=== PATIENT | female | born 1950 | race Two or more races ===

== ENCOUNTER 2024-05-29 07:56 | Outpatient (RCR) | payer MEDICARE, SELFPAY ==
[2024-05-07 16:20] LABS: Basophils % (Auto) 0 % (0-2.5); Eosinophils # (Auto) 0.1 Thou/mm3 (0.0-0.5); Eosinophils % (Auto) 2 % (0-10); Hematocrit 26.7 % (36.0-46.0); Immature Granulocytes % (Auto) 5 % (0-0); Immature Granulocytes Auto 0.27 Thou/mm3 (0.00-0.00); Lymphocytes # (Auto) 0.6 Thou/mm3 (1.0-4.8); Lymphocytes % (Auto) 11 % (10-50); Mean Corpuscular HGB Conc 32.6 g/dl (31.0-37.0); Mean Corpuscular Hemoglobin 28.4 pg (25.0-35.0); Mean Corpuscular Volume 87 fL (80-100); Monocytes # (Auto) 0.9 Thou/mm3 (0.0-0.8); Monocytes % (Auto) 17 % (0-12); Neutrophils # (Auto) 3.2 Thou/mm3 (1.8-7.7); Neutrophils % (Auto) 64 % (37-80); Nucleated Red Blood Cell % 0 /100 WBC (0); Platelet Count 99 Thou/mm3 (140-440); RDW Standard Deviation 49.1 fL (36.4-46.3); Red Blood Count 3.06 Miln/mm3 (4.00-5.20); White Blood Count 5.1 Thou/mm3 (3.6-11.0)
[2024-05-07 16:23] LABS: Hemoglobin 8.7 g/dL (12.0-16.0)
[2024-05-07 16:37] LABS: Alanine Aminotransferase 12 U/L (10-49); Albumin/Globulin Ratio 2.4 (1.2-2.2); Alkaline Phosphatase 57 U/L (46-116); Anion Gap 7 (7-16); Aspartate Amino Transferase 22 U/L (0-34); BUN/Creatinine Ratio 32 Ratio (12-20); Bilirubin,Total 0.4 mg/dL (0.3-1.2); Blood Urea Nitrogen 16 mg/dL (9-23); Calcium 9.2 mg/dL (8.3-10.6); Calcium (Corrected) 9.2 mg/dL (8.5-10.1); Carbon Dioxide 26.1 mMol/L (20.0-31.0); Chloride 102 mMol/L (98-107); Creatinine (Component) 0.5 mg/dL (0.6-1.3); Globulin 1.7 gm/dL (2.3-3.5); Glucose 155 mg/dL (74-106); Osmolality,Calculated 274 (275-295); Potassium 3.6 mMol/L (3.4-5.1); Sodium 135 mMol/L (136-145); Total Protein 5.7 gm/dL (5.7-8.2); eGFR > 60 See Note
[2024-05-14 22:04] LABS: Abnormal protein band 1 0.2 g/dL (NONE DETECTED); Albumin 3.4 g/dL (3.8-4.8); Alpha-1-Globulin 0.3 g/dL (0.2-0.3); Alpha-2-Globulin 0.7 g/dL (0.5-0.9); Beta-1-Globulin 0.4 g/dL (0.4-0.6); Beta-2-globulin 0.1 g/dL (0.2-0.5); Gamma Globulin 0.4 g/dL (0.8-1.7)
[2024-05-15 06:31] LABS: Protein, total, serum 5.3 g/dL (6.1-8.1)
[2024-05-15 08:29] LABS: Basophils % (Auto) 0 % (0-2.5); Eosinophils % (Auto) 1 % (0-10); Hematocrit 30.8 % (36.0-46.0); Hemoglobin 10.3 g/dL (12.0-16.0); Immature Granulocytes % (Auto) 2 % (0-0); Immature Granulocytes Auto 0.16 Thou/mm3 (0.00-0.00); Lymphocytes % (Auto) 16 % (10-50); Mean Corpuscular HGB Conc 33.4 g/dl (31.0-37.0); Mean Corpuscular Hemoglobin 28.5 pg (25.0-35.0); Mean Corpuscular Volume 85 fL (80-100); Monocytes # (Auto) 1.2 Thou/mm3 (0.0-0.8); Monocytes % (Auto) 18 % (0-12); Neutrophils # (Auto) 4.2 Thou/mm3 (1.8-7.7); Neutrophils % (Auto) 64 % (37-80); Nucleated Red Blood Cell % 0 /100 WBC (0); Platelet Count 96 Thou/mm3 (140-440); RDW Standard Deviation 47.5 fL (36.4-46.3); Red Blood Count 3.62 Miln/mm3 (4.00-5.20); White Blood Count 6.6 Thou/mm3 (3.6-11.0)
[2024-05-15 09:15] LABS: Alanine Aminotransferase 10 U/L (10-49); Albumin, Serum 4.3 gm/dL (3.4-4.8); Albumin/Globulin Ratio 2.2 (1.2-2.2); Alkaline Phosphatase 70 U/L (46-116); Anion Gap 5 (7-16); Aspartate Amino Transferase 22 U/L (0-34); BUN/Creatinine Ratio 36 Ratio (12-20); Bilirubin,Total 0.5 mg/dL (0.3-1.2); Blood Urea Nitrogen 18 mg/dL (9-23); Calcium 9.2 mg/dL (8.3-10.6); Calcium (Corrected) 9.2 mg/dL (8.5-10.1); Carbon Dioxide 28.2 mMol/L (20.0-31.0); Chloride 101 mMol/L (98-107); Creatinine (Component) 0.5 mg/dL (0.6-1.3); Glucose 100 mg/dL (74-106); Osmolality,Calculated 270 (275-295); Potassium 3.6 mMol/L (3.4-5.1); Sodium 134 mMol/L (136-145); Total Protein 6.3 gm/dL (5.7-8.2); eGFR > 60 See Note
[2024-05-21 16:12] LABS: Basophils % (Auto) 0 % (0-2.5); Eosinophils # (Auto) 0.1 Thou/mm3 (0.0-0.5); Eosinophils % (Auto) 1 % (0-10); Hemoglobin 8.9 g/dL (12.0-16.0); Immature Granulocytes % (Auto) 2 % (0-0); Immature Granulocytes Auto 0.12 Thou/mm3 (0.00-0.00); Mean Corpuscular Volume 86 fL (80-100); Nucleated Red Blood Cell % 0 /100 WBC (0)
[2024-05-21 16:14] LABS: Hematocrit 27.3 % (36.0-46.0); Lymphocytes # (Auto) 0.5 Thou/mm3 (1.0-4.8); Lymphocytes % (Auto) 9 % (10-50); Mean Corpuscular HGB Conc 32.6 g/dl (31.0-37.0); Mean Corpuscular Hemoglobin 27.9 pg (25.0-35.0); Monocytes # (Auto) 0.8 Thou/mm3 (0.0-0.8); Monocytes % (Auto) 15 % (0-12); Neutrophils # (Auto) 4.1 Thou/mm3 (1.8-7.7); Neutrophils % (Auto) 73 % (37-80); Red Blood Count 3.19 Miln/mm3 (4.00-5.20); White Blood Count 5.6 Thou/mm3 (3.6-11.0)
[2024-05-21 16:33] LABS: Alanine Aminotransferase 14 U/L (10-49); Albumin, Serum 4.1 gm/dL (3.4-4.8); Albumin/Globulin Ratio 2.4 (1.2-2.2); Alkaline Phosphatase 63 U/L (46-116); Anion Gap 6 (7-16); Aspartate Amino Transferase 23 U/L (0-34); BUN/Creatinine Ratio 42 Ratio (12-20); Bilirubin,Total 0.4 mg/dL (0.3-1.2); Blood Urea Nitrogen 21 mg/dL (9-23); Carbon Dioxide 26.9 mMol/L (20.0-31.0); Chloride 104 mMol/L (98-107); Creatinine (Component) 0.5 mg/dL (0.6-1.3); Globulin 1.7 gm/dL (2.3-3.5); Glucose 135 mg/dL (74-106); Osmolality,Calculated 278 (275-295); Potassium 3.2 mMol/L (3.4-5.1); Sodium 137 mMol/L (136-145); Total Protein 5.8 gm/dL (5.7-8.2); eGFR > 60 See Note
[2024-05-21 18:00] LABS: Platelet Count 66 Thou/mm3 (140-440); Slide Review Platelets confirmed
[2024-05-22 10:50] LABS: Basophils % (Auto) 0 % (0-2.5); Eosinophils # (Auto) 0.1 Thou/mm3 (0.0-0.5); Eosinophils % (Auto) 2 % (0-10); Hematocrit 25.6 % (36.0-46.0); Immature Granulocytes % (Auto) 3 % (0-0); Immature Granulocytes Auto 0.13 Thou/mm3 (0.00-0.00); Lymphocytes # (Auto) 0.4 Thou/mm3 (1.0-4.8); Lymphocytes % (Auto) 11 % (10-50); Mean Corpuscular HGB Conc 33.2 g/dl (31.0-37.0); Mean Corpuscular Hemoglobin 28.4 pg (25.0-35.0); Mean Corpuscular Volume 86 fL (80-100); Monocytes # (Auto) 0.8 Thou/mm3 (0.0-0.8); Monocytes % (Auto) 21 % (0-12); Neutrophils # (Auto) 2.5 Thou/mm3 (1.8-7.7); Neutrophils % (Auto) 64 % (37-80); Nucleated Red Blood Cell % 0 /100 WBC (0); Platelet Count 66 Thou/mm3 (140-440); RDW Standard Deviation 48.3 fL (36.4-46.3); Red Blood Count 2.99 Miln/mm3 (4.00-5.20); White Blood Count 3.9 Thou/mm3 (3.6-11.0)
[2024-05-22 11:08] LABS: Alanine Aminotransferase 16 U/L (10-49); Albumin, Serum 3.9 gm/dL (3.4-4.8); Albumin/Globulin Ratio 2.3 (1.2-2.2); Alkaline Phosphatase 62 U/L (46-116); Anion Gap 6 (7-16); Aspartate Amino Transferase 24 U/L (0-34); BUN/Creatinine Ratio 40 Ratio (12-20); Bilirubin,Total 0.3 mg/dL (0.3-1.2); Blood Urea Nitrogen 20 mg/dL (9-23); Calcium 8.7 mg/dL (8.3-10.6); Calcium (Corrected) 8.8 mg/dL (8.5-10.1); Carbon Dioxide 26.3 mMol/L (20.0-31.0); Chloride 105 mMol/L (98-107); Creatinine (Component) 0.5 mg/dL (0.6-1.3); Globulin 1.7 gm/dL (2.3-3.5); Glucose 115 mg/dL (74-106); Osmolality,Calculated 277 (275-295); Potassium 3.3 mMol/L (3.4-5.1); Sodium 137 mMol/L (136-145); Total Protein 5.6 gm/dL (5.7-8.2); eGFR > 60 See Note
[2024-05-22 11:35] LABS: Hemoglobin 8.5 g/dL (12.0-16.0)
[2024-05-22 12:43] LABS: Slide Review Platelets confirmed
[2024-05-23 03:06] LABS: Immunoglobulin G 479 mg/dL (600-1540); Kappa Light Chain, Free 691.2 mg/L (3.3-19.4); Lambda Light Chain, Free 8.2 mg/L (5.7-26.3)
[2024-05-23 06:44] LABS: Beta 2 Microglobulin 3.69 mg/L (< OR = 2.51); Immunoglobulin A 13 mg/dL (70-320); Immunoglobulin M 21 mg/dL (50-300); Kappa/Lambda, Free Ratio 84.29 (0.26-1.65)
[2024-05-28 15:09] LABS: Basophils % (Auto) 0 % (0-2.5); Eosinophils % (Auto) 1 % (0-10); Hematocrit 27.9 % (36.0-46.0); Hemoglobin 9.3 g/dL (12.0-16.0); Immature Granulocytes % (Auto) 2 % (0-0); Lymphocytes # (Auto) 0.7 Thou/mm3 (1.0-4.8); Lymphocytes % (Auto) 12 % (10-50); Mean Corpuscular HGB Conc 33.3 g/dl (31.0-37.0); Mean Corpuscular Hemoglobin 27.8 pg (25.0-35.0); Mean Corpuscular Volume 84 fL (80-100); Monocytes % (Auto) 19 % (0-12); Neutrophils # (Auto) 3.6 Thou/mm3 (1.8-7.7); Neutrophils % (Auto) 66 % (37-80); Nucleated Red Blood Cell % 0 /100 WBC (0); Platelet Count 97 Thou/mm3 (140-440); RDW Standard Deviation 46.2 fL (36.4-46.3); Red Blood Count 3.34 Miln/mm3 (4.00-5.20); White Blood Count 5.4 Thou/mm3 (3.6-11.0)
[2024-05-28 15:10] LABS: Alanine Aminotransferase 12 U/L (10-49); Albumin, Serum 4.3 gm/dL (3.4-4.8); Albumin/Globulin Ratio 2.3 (1.2-2.2); Alkaline Phosphatase 57 U/L (46-116); Anion Gap 6 (7-16); Aspartate Amino Transferase 23 U/L (0-34); BUN/Creatinine Ratio 33 Ratio (12-20); Bilirubin,Total 0.5 mg/dL (0.3-1.2); Blood Urea Nitrogen 20 mg/dL (9-23); Calcium 9.1 mg/dL (8.3-10.6); Calcium (Corrected) 9.1 mg/dL (8.5-10.1); Carbon Dioxide 25.7 mMol/L (20.0-31.0); Chloride 103 mMol/L (98-107); Creatinine (Component) 0.6 mg/dL (0.6-1.3); Globulin 1.9 gm/dL (2.3-3.5); Glucose 92 mg/dL (74-106); Osmolality,Calculated 272 (275-295); Potassium 3.6 mMol/L (3.4-5.1); Sodium 135 mMol/L (136-145); Total Protein 6.2 gm/dL (5.7-8.2); eGFR > 60 See Note
[2024-05-29 17:38] LABS: RA Screen Positive (Negative)
[2024-05-29 17:39] LABS: Rheumatoid Factor Titer 1:16
== END 2024-06-01 23:59 | disposition home or self-care (01) ==
LOC: SCTC 07:56
PROVIDERS: Referring Provider Internal Medicine Hematology & Oncology; Visit Provider Internal Medicine Hematology & Oncology
DX: Z51.11 Encounter for antineoplastic chemotherapy (principal); C90.00 Multiple myeloma not having achieved remission
CPT/HCPCS: 36591; 80053; 82232; 82784; 83521; 84155; 84165; 85025; 86334; 86430; 86431; 96367; 96401; 96413; 99212; A4216; J1100; J1453; J1642; J2405; J3490; J7040; J9041; J9075; G0463

== ENCOUNTER → 2024-06-05 | Outpatient (CLI) | payer MEDICARE, MEDICAID, SELFPAY ==
--- NOTE | 2024-06-05 13:36 | XR_ITS ---
Examination: Hand, left 3 views Technique: Hand AP, oblique, lateral 3 views Date and time of exam: June 05, 2024 1340 hours INDICATIONS: Swelling paresthesias numbness in the first second third and fourth digits beginning 2 weeks ago FINDINGS: Severe osteopenia Advanced osteoarthritis first carpometacarpal joint No cortical bone destruction No fracture Calcification dorsal to the distal aspect proximal phalanx third digit Significant osteoarthritis distal interphalangeal joints second through fifth digits No erosive arthritis IMPRESSION: Osteoarthritis as above
== END | disposition home or self-care (01) ==
PROVIDERS: PCP Internal Medicine; Referring Provider Internal Medicine Hematology & Oncology; Visit Provider Internal Medicine Hematology & Oncology
DX: M19.042 Primary osteoarthritis, left hand (principal); C90.00 Multiple myeloma not having achieved remission
CPT/HCPCS: 73130

== ENCOUNTER 2024-06-19 09:40 | Outpatient (RCR) | payer MEDICARE, SELFPAY ==
[2024-06-04 15:45] LABS: Basophils % (Auto) 0 % (0-2.5); Eosinophils % (Auto) 0 % (0-10); Hematocrit 26.4 % (36.0-46.0); Immature Granulocytes % (Auto) 4 % (0-0); Immature Granulocytes Auto 0.28 Thou/mm3 (0.00-0.00); Lymphocytes # (Auto) 0.5 Thou/mm3 (1.0-4.8); Lymphocytes % (Auto) 7 % (10-50); Mean Corpuscular HGB Conc 31.4 g/dl (31.0-37.0); Mean Corpuscular Hemoglobin 27.5 pg (25.0-35.0); Mean Corpuscular Volume 87 fL (80-100); Monocytes # (Auto) 0.9 Thou/mm3 (0.0-0.8); Monocytes % (Auto) 13 % (0-12); Neutrophils # (Auto) 5.4 Thou/mm3 (1.8-7.7); Neutrophils % (Auto) 76 % (37-80); Nucleated Red Blood Cell % 0 /100 WBC (0); Platelet Count 133 Thou/mm3 (140-440); RDW Standard Deviation 49.4 fL (36.4-46.3); Red Blood Count 3.02 Miln/mm3 (4.00-5.20); White Blood Count 7.1 Thou/mm3 (3.6-11.0)
[2024-06-04 15:56] LABS: Hemoglobin 8.3 g/dL (12.0-16.0)
[2024-06-04 17:47] LABS: Alanine Aminotransferase 14 U/L (10-49); Albumin, Serum 3.9 gm/dL (3.4-4.8); Albumin/Globulin Ratio 2.6 (1.2-2.2); Alkaline Phosphatase 57 U/L (46-116); Anion Gap 9 (7-16); Aspartate Amino Transferase 24 U/L (0-34); BUN/Creatinine Ratio 40 Ratio (12-20); Bilirubin,Total 0.4 mg/dL (0.3-1.2); Blood Urea Nitrogen 20 mg/dL (9-23); Calcium 8.7 mg/dL (8.3-10.6); Calcium (Corrected) 8.8 mg/dL (8.5-10.1); Carbon Dioxide 26.2 mMol/L (20.0-31.0); Chloride 105 mMol/L (98-107); Creatinine (Component) 0.5 mg/dL (0.6-1.3); Globulin 1.5 gm/dL (2.3-3.5); Glucose 188 mg/dL (74-106); Osmolality,Calculated 287 (275-295); Potassium 3.5 mMol/L (3.4-5.1); Sodium 140 mMol/L (136-145); Total Protein 5.4 gm/dL (5.7-8.2); eGFR > 60 See Note
[2024-06-10 19:47] LABS: Abnormal protein band 1 0.3 g/dL (NONE DETECTED); Albumin 3.5 g/dL (3.8-4.8); Alpha-1-Globulin 0.3 g/dL (0.2-0.3); Alpha-2-Globulin 0.7 g/dL (0.5-0.9); Beta-1-Globulin 0.4 g/dL (0.4-0.6); Beta-2-globulin 0.1 g/dL (0.2-0.5); Gamma Globulin 0.5 g/dL (0.8-1.7)
[2024-06-11 06:24] LABS: Protein, total, serum 5.5 g/dL (6.1-8.1)
[2024-06-11 15:59] LABS: Basophils % (Auto) 0 % (0-2.5); Eosinophils # (Auto) 0.2 Thou/mm3 (0.0-0.5); Eosinophils % (Auto) 2 % (0-10); Hemoglobin 8.9 g/dL (12.0-16.0); Immature Granulocytes % (Auto) 4 % (0-0); Immature Granulocytes Auto 0.27 Thou/mm3 (0.00-0.00); Lymphocytes # (Auto) 0.9 Thou/mm3 (1.0-4.8); Lymphocytes % (Auto) 13 % (10-50); Mean Corpuscular HGB Conc 31.8 g/dl (31.0-37.0); Mean Corpuscular Hemoglobin 27.1 pg (25.0-35.0); Mean Corpuscular Volume 85 fL (80-100); Monocytes # (Auto) 1.3 Thou/mm3 (0.0-0.8); Monocytes % (Auto) 19 % (0-12); Neutrophils # (Auto) 4.3 Thou/mm3 (1.8-7.7); Neutrophils % (Auto) 62 % (37-80); Nucleated Red Blood Cell % 0 /100 WBC (0); Platelet Count 108 Thou/mm3 (140-440); RDW Standard Deviation 47.3 fL (36.4-46.3); Red Blood Count 3.29 Miln/mm3 (4.00-5.20)
[2024-06-11 16:13] LABS: Alanine Aminotransferase 12 U/L (10-49); Albumin, Serum 4.4 gm/dL (3.4-4.8); Albumin/Globulin Ratio 2.4 (1.2-2.2); Alkaline Phosphatase 62 U/L (46-116); Anion Gap 7 (7-16); Aspartate Amino Transferase 23 U/L (0-34); BUN/Creatinine Ratio 42 Ratio (12-20); Bilirubin,Total 0.4 mg/dL (0.3-1.2); Blood Urea Nitrogen 21 mg/dL (9-23); Carbon Dioxide 26.4 mMol/L (20.0-31.0); Chloride 103 mMol/L (98-107); Creatinine (Component) 0.5 mg/dL (0.6-1.3); Globulin 1.8 gm/dL (2.3-3.5); Glucose 119 mg/dL (74-106); Osmolality,Calculated 275 (275-295); Potassium 3.6 mMol/L (3.4-5.1); Sodium 136 mMol/L (136-145); Total Protein 6.2 gm/dL (5.7-8.2); eGFR > 60 See Note
[2024-06-12 22:06] LABS: Immunoglobulin G 582 mg/dL (600-1540); Kappa Light Chain, Free 575.4 mg/L (3.3-19.4); Lambda Light Chain, Free 11.3 mg/L (5.7-26.3)
[2024-06-13 06:55] LABS: Beta 2 Microglobulin 3.06 mg/L (< OR = 2.51); Immunoglobulin A 17 mg/dL (70-320); Immunoglobulin M 21 mg/dL (50-300); Kappa/Lambda, Free Ratio 50.92 (0.26-1.65)
[2024-06-18 16:21] LABS: Basophils % (Auto) 0 % (0-2.5); Eosinophils # (Auto) 0.1 Thou/mm3 (0.0-0.5); Eosinophils % (Auto) 2 % (0-10); Hematocrit 27.6 % (36.0-46.0); Immature Granulocytes % (Auto) 4 % (0-0); Immature Granulocytes Auto 0.17 Thou/mm3 (0.00-0.00); Lymphocytes # (Auto) 0.5 Thou/mm3 (1.0-4.8); Lymphocytes % (Auto) 11 % (10-50); Mean Corpuscular HGB Conc 31.5 g/dl (31.0-37.0); Mean Corpuscular Hemoglobin 26.5 pg (25.0-35.0); Mean Corpuscular Volume 84 fL (80-100); Monocytes % (Auto) 21 % (0-12); Neutrophils # (Auto) 2.9 Thou/mm3 (1.8-7.7); Neutrophils % (Auto) 62 % (37-80); Nucleated Red Blood Cell % 0 /100 WBC (0); Platelet Count 76 Thou/mm3 (140-440); RDW Standard Deviation 46.5 fL (36.4-46.3); Red Blood Count 3.28 Miln/mm3 (4.00-5.20); White Blood Count 4.7 Thou/mm3 (3.6-11.0)
[2024-06-18 16:45] LABS: Alanine Aminotransferase 14 U/L (10-49); Albumin, Serum 4.2 gm/dL (3.4-4.8); Albumin/Globulin Ratio 2.3 (1.2-2.2); Alkaline Phosphatase 64 U/L (46-116); Anion Gap 8 (7-16); Aspartate Amino Transferase 25 U/L (0-34); BUN/Creatinine Ratio 44 Ratio (12-20); Bilirubin,Total 0.4 mg/dL (0.3-1.2); Blood Urea Nitrogen 22 mg/dL (9-23); Calcium 9.3 mg/dL (8.3-10.6); Calcium (Corrected) 9.3 mg/dL (8.5-10.1); Carbon Dioxide 27.4 mMol/L (20.0-31.0); Chloride 103 mMol/L (98-107); Creatinine (Component) 0.5 mg/dL (0.6-1.3); Globulin 1.8 gm/dL (2.3-3.5); Glucose 111 mg/dL (74-106); Osmolality,Calculated 279 (275-295); Potassium 3.2 mMol/L (3.4-5.1); Sodium 138 mMol/L (136-145); eGFR > 60 See Note
[2024-06-18 16:57] LABS: Hemoglobin 8.7 g/dL (12.0-16.0)
[2024-06-18 17:11] LABS: Slide Review Platelets confirmed
== END 2024-07-02 23:59 | disposition home or self-care (01) ==
LOC: SCTC 09:40
PROVIDERS: Referring Provider Internal Medicine Hematology & Oncology; Visit Provider Internal Medicine Hematology & Oncology
DX: Z51.11 Encounter for antineoplastic chemotherapy (principal); C90.00 Multiple myeloma not having achieved remission
CPT/HCPCS: 36591; 80053; 82232; 82784; 83521; 84155; 84165; 85025; 86334; 96365; 96367; 96401; A4216; J1100; J1642; J3490; J7040; J9041

== ENCOUNTER → 2024-07-04 | Outpatient (CLI) | payer MEDICARE, SELFPAY | END | disposition home or self-care (01) | PROVIDERS: PCP Internal Medicine Hematology & Oncology; Referring Provider Internal Medicine Hematology & Oncology; Visit Provider Internal Medicine Hematology & Oncology | DX: Z53.8 Procedure and treatment not carried out for other reasons (principal) ==

== ENCOUNTER 2024-07-09 07:28 | Outpatient (CLI) | payer MEDICARE, SELFPAY ==
[2024-07-04 15:41] VITALS: BMI 21.8
[2024-07-09] VITALS (10 sets, daily range): BP systolic 177–207; BP diastolic 70–100; PULSE 47–70; RESP 12–20; TEMP 36.7–37; O2SAT 100
--- NOTE | 2024-07-09 08:30 | XR_ITS ---
Examination: CT-guided percutaneous bone marrow aspiration right posterior superior iliac crest CT-guided percutaneous bone biopsy deep right posterior superior iliac crest INDICATIONS: Multiple myeloma diagnosis Date and time of procedure: July 09, 2024 0914 hours Informed consent provided. A timeout was completed verifying correct patient, procedure, site and positioning. Technique: Axial 3 mm sections were obtained for localization of the right posterior superior iliac crest Appropriate area is marked. The patient's site was prepped and draped in sterile fashion Maximal sterile barrier technique utilized, including hand hygiene Local anesthesia was obtained with 1% lidocaine. Low dose protocols were performed. One or more of the following dose reduction techniques were used; automated exposure control, adjustment of the mA and/or KV according to patient size, use of iterative reconstruction technique. Utilizing CT fluoroscopic guidance 14-gauge bone biopsy needle placed in the right posterior superior iliac crest 5 cc marrow aspirate and 5 cc bone core obtained specimens appear adequate Patient appears in stable condition during this procedure. At completion of the procedure, the patient is in satisfactory condition. Estimated blood loss 2 cc Complete pathology report to follow. Impression: Successful CT-guided percutaneous bone marrow aspiration right posterior superior iliac crest Successful CT-guided cutaneous bone biopsy deep right posterior superior iliac crest
[2024-07-09] MEDS: fentaNYL CIT INJ 50 mCg/ML AMP 2ML IVP (09:52)
[2024-07-09 10:20] LABS: Flow Cytometry* See Sep Rpt
--- NOTE | 2024-07-09 11:07 | PC.NURSE ---
Notified Dr Neil of patients blood pressure continuing to be high even after taking her home blood pressure pill on arrival. Notified Dr of arrival BP and current BP. Per send patient to the emergency department. Notified Cherie somers/care provider and patient of doctors order. Per Cherie Care Provider patients Blood pressure has been this high and does not plan to take her to the emergency but will call the doctor to get an appointment as soon as possible. Notified Cherie that its not safe to have Blood pressure that high and repeated Doctors request.
== END 2024-07-09 11:35 | disposition home or self-care (01) ==
PROVIDERS: PCP Internal Medicine Hematology & Oncology; Referring Provider Internal Medicine Hematology & Oncology; Visit Provider Internal Medicine Hematology & Oncology
DX: C90.00 Multiple myeloma not having achieved remission (principal); Z01.812 Encounter for preprocedural laboratory examination
CPT/HCPCS: 38221; 77012; 85025; 85610; 85730; J3010

== ENCOUNTER 2024-07-31 14:31 | Outpatient (RCR) | payer MEDICARE, SELFPAY ==
[2024-07-04 08:32] LABS: Basophils % (Auto) 1 % (0-2.5); Eosinophils # (Auto) 0.1 Thou/mm3 (0.0-0.5); Eosinophils % (Auto) 2 % (0-10); Hematocrit 25.3 % (36.0-46.0); Immature Granulocytes % (Auto) 2 % (0-0); Immature Granulocytes Auto 0.07 Thou/mm3 (0.00-0.00); Lymphocytes # (Auto) 0.4 Thou/mm3 (1.0-4.8); Lymphocytes % (Auto) 10 % (10-50); Mean Corpuscular HGB Conc 31.2 g/dl (31.0-37.0); Mean Corpuscular Volume 83 fL (80-100); Monocytes # (Auto) 0.8 Thou/mm3 (0.0-0.8); Monocytes % (Auto) 19 % (0-12); Neutrophils # (Auto) 2.9 Thou/mm3 (1.8-7.7); Neutrophils % (Auto) 67 % (37-80); Nucleated Red Blood Cell % 0 /100 WBC (0); Platelet Count 127 Thou/mm3 (140-440); RDW Standard Deviation 47.8 fL (36.4-46.3); Red Blood Count 3.04 Miln/mm3 (4.00-5.20); White Blood Count 4.3 Thou/mm3 (3.6-11.0)
[2024-07-04 08:45] LABS: Hemoglobin 7.9 g/dL (12.0-16.0)
[2024-07-04 08:53] LABS: Alanine Aminotransferase 14 U/L (10-49); Albumin/Globulin Ratio 2.4 (1.2-2.2); Alkaline Phosphatase 57 U/L (46-116); Anion Gap 8 (7-16); Aspartate Amino Transferase 22 U/L (0-34); BUN/Creatinine Ratio 32 Ratio (12-20); Bilirubin,Total 0.3 mg/dL (0.3-1.2); Blood Urea Nitrogen 16 mg/dL (9-23); Calcium 8.9 mg/dL (8.3-10.6); Calcium (Corrected) 8.9 mg/dL (8.5-10.1); Carbon Dioxide 29.2 mMol/L (20.0-31.0); Chloride 105 mMol/L (98-107); Creatinine (Component) 0.5 mg/dL (0.6-1.3); Globulin 1.7 gm/dL (2.3-3.5); Glucose 89 mg/dL (74-106); Osmolality,Calculated 283 (275-295); Potassium 3.7 mMol/L (3.4-5.1); Sodium 142 mMol/L (136-145); Total Protein 5.7 gm/dL (5.7-8.2); eGFR > 60 See Note
[2024-07-08 16:17] LABS: Basophils % (Auto) 0 % (0-2.5); Eosinophils % (Auto) 1 % (0-10); Hematocrit 25.7 % (36.0-46.0); Immature Granulocytes % (Auto) 2 % (0-0); Immature Granulocytes Auto 0.12 Thou/mm3 (0.00-0.00); Lymphocytes # (Auto) 0.5 Thou/mm3 (1.0-4.8); Lymphocytes % (Auto) 8 % (10-50); Mean Corpuscular HGB Conc 32.3 g/dl (31.0-37.0); Mean Corpuscular Hemoglobin 25.9 pg (25.0-35.0); Mean Corpuscular Volume 80 fL (80-100); Monocytes % (Auto) 18 % (0-12); Neutrophils # (Auto) 4.2 Thou/mm3 (1.8-7.7); Neutrophils % (Auto) 72 % (37-80); Nucleated Red Blood Cell # 0.03 Thou/mm3 (0.00-0.00); Nucleated Red Blood Cell % 1 /100 WBC (0); Platelet Count 103 Thou/mm3 (140-440); Red Blood Count 3.21 Miln/mm3 (4.00-5.20); White Blood Count 5.9 Thou/mm3 (3.6-11.0)
[2024-07-08 16:34] LABS: Hemoglobin 8.3 g/dL (12.0-16.0)
[2024-07-08 16:35] LABS: Alanine Aminotransferase 13 U/L (10-49); Albumin, Serum 3.9 gm/dL (3.4-4.8); Albumin/Globulin Ratio 2.1 (1.2-2.2); Alkaline Phosphatase 53 U/L (46-116); Anion Gap 8 (7-16); Aspartate Amino Transferase 27 U/L (0-34); BUN/Creatinine Ratio 40 Ratio (12-20); Bilirubin,Total 0.4 mg/dL (0.3-1.2); Blood Urea Nitrogen 20 mg/dL (9-23); Calcium 9.2 mg/dL (8.3-10.6); Calcium (Corrected) 9.3 mg/dL (8.5-10.1); Carbon Dioxide 27.1 mMol/L (20.0-31.0); Chloride 103 mMol/L (98-107); Creatinine (Component) 0.5 mg/dL (0.6-1.3); Globulin 1.9 gm/dL (2.3-3.5); Glucose 103 mg/dL (74-106); Osmolality,Calculated 278 (275-295); Partial Thromboplastin Time 29.3 Seconds (22.0-36.0); Potassium 3.2 mMol/L (3.4-5.1); Prothrombin Time 11.4 Seconds (9.0-12.2); Sodium 138 mMol/L (136-145); Total Protein 5.8 gm/dL (5.7-8.2); eGFR > 60 See Note
[2024-07-09 15:34] LABS: Abnormal protein band 1 0.3 g/dL (NONE DETECTED); Albumin 3.2 g/dL (3.8-4.8); Alpha-1-Globulin 0.3 g/dL (0.2-0.3); Alpha-2-Globulin 0.7 g/dL (0.5-0.9); Beta-1-Globulin 0.4 g/dL (0.4-0.6); Beta-2-globulin 0.2 g/dL (0.2-0.5); Gamma Globulin 0.5 g/dL (0.8-1.7)
[2024-07-10 07:07] LABS: Protein, total, serum 5.3 g/dL (6.1-8.1)
[2024-07-11 23:32] LABS: Immunoglobulin G 630 mg/dL (600-1540); Lambda Light Chain, Free 11.6 mg/L (5.7-26.3)
[2024-07-12 06:28] LABS: Beta 2 Microglobulin 3.66 mg/L (< OR = 2.51); Immunoglobulin A 17 mg/dL (70-320); Immunoglobulin M 19 mg/dL (50-300); Kappa/Lambda, Free Ratio 80.17 (0.26-1.65)
[2024-07-17 16:20] LABS: Basophils % (Auto) 1 % (0-2.5); Eosinophils % (Auto) 1 % (0-10); Hematocrit 27.8 % (36.0-46.0); Hemoglobin 8.9 g/dL (12.0-16.0); Immature Granulocytes % (Auto) 5 % (0-0); Immature Granulocytes Auto 0.31 Thou/mm3 (0.00-0.00); Lymphocytes # (Auto) 0.7 Thou/mm3 (1.0-4.8); Lymphocytes % (Auto) 11 % (10-50); Mean Corpuscular Hemoglobin 25.9 pg (25.0-35.0); Mean Corpuscular Volume 81 fL (80-100); Monocytes # (Auto) 1.2 Thou/mm3 (0.0-0.8); Monocytes % (Auto) 18 % (0-12); Neutrophils # (Auto) 4.3 Thou/mm3 (1.8-7.7); Neutrophils % (Auto) 66 % (37-80); Nucleated Red Blood Cell % 0 /100 WBC (0); Platelet Count 85 Thou/mm3 (140-440); RDW Standard Deviation 46.5 fL (36.4-46.3); Red Blood Count 3.44 Miln/mm3 (4.00-5.20); White Blood Count 6.6 Thou/mm3 (3.6-11.0)
[2024-07-17 16:42] LABS: Alanine Aminotransferase 18 U/L (10-49); Albumin, Serum 4.3 gm/dL (3.4-4.8); Albumin/Globulin Ratio 2.3 (1.2-2.2); Alkaline Phosphatase 65 U/L (46-116); Anion Gap 7 (7-16); Aspartate Amino Transferase 38 U/L (0-34); BUN/Creatinine Ratio 44 Ratio (12-20); Bilirubin,Total 0.6 mg/dL (0.3-1.2); Blood Urea Nitrogen 22 mg/dL (9-23); Calcium 8.9 mg/dL (8.3-10.6); Calcium (Corrected) 8.9 mg/dL (8.5-10.1); Carbon Dioxide 28.1 mMol/L (20.0-31.0); Chloride 103 mMol/L (98-107); Creatinine (Component) 0.5 mg/dL (0.6-1.3); Globulin 1.9 gm/dL (2.3-3.5); Glucose 89 mg/dL (74-106); Osmolality,Calculated 277 (275-295); Potassium 4.4 mMol/L (3.4-5.1); Sodium 138 mMol/L (136-145); Total Protein 6.2 gm/dL (5.7-8.2); eGFR > 60 See Note
[2024-07-24 16:19] LABS: Basophils % (Auto) 0 % (0-2.5); Eosinophils % (Auto) 0 % (0-10); Hematocrit 31.1 % (36.0-46.0); Hemoglobin 9.8 g/dL (12.0-16.0); Immature Granulocytes % (Auto) 1 % (0-0); Immature Granulocytes Auto 0.07 Thou/mm3 (0.00-0.00); Lymphocytes # (Auto) 0.5 Thou/mm3 (1.0-4.8); Lymphocytes % (Auto) 10 % (10-50); Mean Corpuscular HGB Conc 31.5 g/dl (31.0-37.0); Mean Corpuscular Hemoglobin 25.2 pg (25.0-35.0); Mean Corpuscular Volume 80 fL (80-100); Monocytes # (Auto) 0.9 Thou/mm3 (0.0-0.8); Monocytes % (Auto) 18 % (0-12); Neutrophils # (Auto) 3.5 Thou/mm3 (1.8-7.7); Neutrophils % (Auto) 70 % (37-80); Nucleated Red Blood Cell % 0 /100 WBC (0); Platelet Count 83 Thou/mm3 (140-440); RDW Standard Deviation 45.6 fL (36.4-46.3); Red Blood Count 3.89 Miln/mm3 (4.00-5.20)
[2024-07-24 16:46] LABS: Alanine Aminotransferase 10 U/L (10-49); Albumin, Serum 4.2 gm/dL (3.4-4.8); Albumin/Globulin Ratio 2.2 (1.2-2.2); Alkaline Phosphatase 61 U/L (46-116); Anion Gap 10 (7-16); Aspartate Amino Transferase 23 U/L (0-34); BUN/Creatinine Ratio 38 Ratio (12-20); Bilirubin,Total 0.6 mg/dL (0.3-1.2); Blood Urea Nitrogen 19 mg/dL (9-23); Calcium 9.2 mg/dL (8.3-10.6); Calcium (Corrected) 9.2 mg/dL (8.5-10.1); Carbon Dioxide 28.5 mMol/L (20.0-31.0); Chloride 99 mMol/L (98-107); Creatinine (Component) 0.5 mg/dL (0.6-1.3); Globulin 1.9 gm/dL (2.3-3.5); Glucose 106 mg/dL (74-106); Osmolality,Calculated 276 (275-295); Potassium 3.2 mMol/L (3.4-5.1); Sodium 137 mMol/L (136-145); Total Protein 6.1 gm/dL (5.7-8.2); eGFR > 60 See Note
[2024-07-31 15:26] LABS: Basophils % (Auto) 0 % (0-2.5); Eosinophils % (Auto) 0 % (0-10); Hematocrit 26.6 % (36.0-46.0); Immature Granulocytes % (Auto) 3 % (0-0); Immature Granulocytes Auto 0.14 Thou/mm3 (0.00-0.00); Lymphocytes # (Auto) 0.5 Thou/mm3 (1.0-4.8); Lymphocytes % (Auto) 10 % (10-50); Mean Corpuscular HGB Conc 31.2 g/dl (31.0-37.0); Mean Corpuscular Hemoglobin 25.2 pg (25.0-35.0); Mean Corpuscular Volume 81 fL (80-100); Monocytes # (Auto) 1.1 Thou/mm3 (0.0-0.8); Monocytes % (Auto) 21 % (0-12); Neutrophils # (Auto) 3.5 Thou/mm3 (1.8-7.7); Neutrophils % (Auto) 66 % (37-80); Nucleated Red Blood Cell % 0 /100 WBC (0); Platelet Count 59 Thou/mm3 (140-440); RDW Standard Deviation 47.5 fL (36.4-46.3); Red Blood Count 3.29 Miln/mm3 (4.00-5.20); White Blood Count 5.3 Thou/mm3 (3.6-11.0)
[2024-07-31 15:45] LABS: Alanine Aminotransferase 11 U/L (10-49); Albumin/Globulin Ratio 2.2 (1.2-2.2); Alkaline Phosphatase 55 U/L (46-116); Anion Gap 8 (7-16); Aspartate Amino Transferase 26 U/L (0-34); BUN/Creatinine Ratio 50 Ratio (12-20); Bilirubin,Total 0.5 mg/dL (0.3-1.2); Blood Urea Nitrogen 20 mg/dL (9-23); Calcium 8.8 mg/dL (8.3-10.6); Calcium (Corrected) 8.8 mg/dL (8.5-10.1); Carbon Dioxide 26.9 mMol/L (20.0-31.0); Chloride 100 mMol/L (98-107); Creatinine (Component) 0.4 mg/dL (0.6-1.3); Globulin 1.8 gm/dL (2.3-3.5); Glucose 80 mg/dL (74-106); Osmolality,Calculated 271 (275-295); Potassium 3.5 mMol/L (3.4-5.1); Sodium 135 mMol/L (136-145); Total Protein 5.8 gm/dL (5.7-8.2); eGFR > 60 See Note
[2024-07-31 15:49] LABS: Hemoglobin 8.3 g/dL (12.0-16.0)
[2024-07-31 16:59] LABS: Slide Review Platelets confirmed
== END 2024-08-02 23:59 | disposition home or self-care (01) ==
LOC: SCTC 14:31
PROVIDERS: PCP Internal Medicine; Referring Provider Internal Medicine; Visit Provider Internal Medicine Hematology & Oncology
DX: Z51.11 Encounter for antineoplastic chemotherapy (principal); C90.00 Multiple myeloma not having achieved remission
CPT/HCPCS: 36591; 80053; 82232; 82784; 83521; 84155; 84165; 85025; 85610; 85730; 86334; 96365; 96367; 96401; A4216; J1100; J1642; J7040; J9041

== ENCOUNTER 2024-08-29 14:37 | Outpatient (RCR) | payer MEDICARE, MEDICAID, SELFPAY ==
[2024-08-14 15:51] LABS: Basophils % (Auto) 0 % (0-2.5); Eosinophils % (Auto) 0 % (0-10); Hematocrit 24.9 % (36.0-46.0); Immature Granulocytes % (Auto) 2 % (0-0); Immature Granulocytes Auto 0.14 Thou/mm3 (0.00-0.00); Lymphocytes # (Auto) 0.6 Thou/mm3 (1.0-4.8); Lymphocytes % (Auto) 9 % (10-50); Mean Corpuscular HGB Conc 31.3 g/dl (31.0-37.0); Mean Corpuscular Hemoglobin 25.4 pg (25.0-35.0); Mean Corpuscular Volume 81 fL (80-100); Monocytes # (Auto) 1.3 Thou/mm3 (0.0-0.8); Monocytes % (Auto) 19 % (0-12); Neutrophils # (Auto) 4.8 Thou/mm3 (1.8-7.7); Neutrophils % (Auto) 70 % (37-80); Nucleated Red Blood Cell % 0 /100 WBC (0); Platelet Count 123 Thou/mm3 (140-440); RDW Standard Deviation 49.7 fL (36.4-46.3); Red Blood Count 3.07 Miln/mm3 (4.00-5.20); White Blood Count 6.8 Thou/mm3 (3.6-11.0)
[2024-08-14 16:02] LABS: Hemoglobin 7.8 g/dL (12.0-16.0)
[2024-08-14 16:16] LABS: Alanine Aminotransferase 11 U/L (10-49); Albumin, Serum 3.9 gm/dL (3.4-4.8); Albumin/Globulin Ratio 1.8 (1.2-2.2); Alkaline Phosphatase 68 U/L (46-116); Anion Gap 6 (7-16); Aspartate Amino Transferase 28 U/L (0-34); BUN/Creatinine Ratio 40 Ratio (12-20); Bilirubin,Total 0.4 mg/dL (0.3-1.2); Blood Urea Nitrogen 20 mg/dL (9-23); Calcium 9.1 mg/dL (8.3-10.6); Calcium (Corrected) 9.2 mg/dL (8.5-10.1); Carbon Dioxide 26.8 mMol/L (20.0-31.0); Chloride 105 mMol/L (98-107); Creatinine (Component) 0.5 mg/dL (0.6-1.3); Globulin 2.2 gm/dL (2.3-3.5); Glucose 97 mg/dL (74-106); Osmolality,Calculated 278 (275-295); Potassium 3.6 mMol/L (3.4-5.1); Sodium 138 mMol/L (136-145); Total Protein 6.1 gm/dL (5.7-8.2); eGFR > 60 See Note
[2024-08-20 23:34] LABS: Abnormal protein band 1 0.4 g/dL (NONE DETECTED); Albumin 3.5 g/dL (3.8-4.8); Alpha-1-Globulin 0.3 g/dL (0.2-0.3); Alpha-2-Globulin 0.7 g/dL (0.5-0.9); Beta-1-Globulin 0.4 g/dL (0.4-0.6); Beta-2-globulin 0.2 g/dL (0.2-0.5); Gamma Globulin 0.7 g/dL (0.8-1.7)
[2024-08-21 06:22] LABS: Protein, total, serum 5.8 g/dL (6.1-8.1)
[2024-08-21 16:23] LABS: Basophils % (Auto) 1 % (0-2.5); Eosinophils # (Auto) 0.1 Thou/mm3 (0.0-0.5); Eosinophils % (Auto) 1 % (0-10); Hematocrit 27.3 % (36.0-46.0); Immature Granulocytes % (Auto) 5 % (0-0); Immature Granulocytes Auto 0.43 Thou/mm3 (0.00-0.00); Lymphocytes # (Auto) 0.8 Thou/mm3 (1.0-4.8); Lymphocytes % (Auto) 10 % (10-50); Mean Corpuscular HGB Conc 31.5 g/dl (31.0-37.0); Mean Corpuscular Hemoglobin 24.9 pg (25.0-35.0); Mean Corpuscular Volume 79 fL (80-100); Monocytes # (Auto) 1.6 Thou/mm3 (0.0-0.8); Monocytes % (Auto) 20 % (0-12); Neutrophils % (Auto) 63 % (37-80); Nucleated Red Blood Cell # 0.02 Thou/mm3 (0.00-0.00); Nucleated Red Blood Cell % 0 /100 WBC (0); Platelet Count 118 Thou/mm3 (140-440); RDW Standard Deviation 47.5 fL (36.4-46.3); Red Blood Count 3.45 Miln/mm3 (4.00-5.20)
[2024-08-21 16:29] LABS: Hemoglobin 8.6 g/dL (12.0-16.0)
[2024-08-21 17:06] LABS: Alanine Aminotransferase 10 U/L (10-49); Albumin/Globulin Ratio 1.8 (1.2-2.2); Alkaline Phosphatase 64 U/L (46-116); Anion Gap 10 (7-16); Aspartate Amino Transferase 20 U/L (0-34); BUN/Creatinine Ratio 30 Ratio (12-20); Bilirubin,Total 0.7 mg/dL (0.3-1.2); Blood Urea Nitrogen 18 mg/dL (9-23); Calcium 9.1 mg/dL (8.3-10.6); Calcium (Corrected) 9.1 mg/dL (8.5-10.1); Carbon Dioxide 27.1 mMol/L (20.0-31.0); Chloride 101 mMol/L (98-107); Creatinine (Component) 0.6 mg/dL (0.6-1.3); Globulin 2.2 gm/dL (2.3-3.5); Glucose 141 mg/dL (74-106); Osmolality,Calculated 279 (275-295); Potassium 3.9 mMol/L (3.4-5.1); Sodium 138 mMol/L (136-145); Total Protein 6.2 gm/dL (5.7-8.2); eGFR > 60 See Note
[2024-08-26 03:02] LABS: Immunoglobulin G 842 mg/dL (600-1540); Kappa Light Chain, Free 618.7 mg/L (3.3-19.4); Lambda Light Chain, Free 14.3 mg/L (5.7-26.3)
[2024-08-26 07:07] LABS: Beta 2 Microglobulin 2.99 mg/L (< OR = 2.51); Immunoglobulin A 18 mg/dL (70-320); Immunoglobulin M 19 mg/dL (50-300); Kappa/Lambda, Free Ratio 43.27 (0.26-1.65)
[2024-08-28 15:43] LABS: Basophils % (Auto) 0 % (0-2.5); Eosinophils # (Auto) 0.1 Thou/mm3 (0.0-0.5); Eosinophils % (Auto) 1 % (0-10); Hematocrit 29.2 % (36.0-46.0); Immature Granulocytes % (Auto) 4 % (0-0); Immature Granulocytes Auto 0.31 Thou/mm3 (0.00-0.00); Lymphocytes # (Auto) 0.7 Thou/mm3 (1.0-4.8); Lymphocytes % (Auto) 9 % (10-50); Mean Corpuscular HGB Conc 30.8 g/dl (31.0-37.0); Mean Corpuscular Hemoglobin 24.5 pg (25.0-35.0); Mean Corpuscular Volume 80 fL (80-100); Monocytes # (Auto) 1.1 Thou/mm3 (0.0-0.8); Monocytes % (Auto) 14 % (0-12); Neutrophils # (Auto) 5.6 Thou/mm3 (1.8-7.7); Neutrophils % (Auto) 72 % (37-80); Nucleated Red Blood Cell % 0 /100 WBC (0); Platelet Count 98 Thou/mm3 (140-440); RDW Standard Deviation 49.2 fL (36.4-46.3); Red Blood Count 3.67 Miln/mm3 (4.00-5.20); White Blood Count 7.9 Thou/mm3 (3.6-11.0)
[2024-08-28 16:03] LABS: Alanine Aminotransferase 11 U/L (10-49); Albumin, Serum 4.2 gm/dL (3.4-4.8); Albumin/Globulin Ratio 1.9 (1.2-2.2); Alkaline Phosphatase 63 U/L (46-116); Anion Gap 10 (7-16); Aspartate Amino Transferase 28 U/L (0-34); BUN/Creatinine Ratio 31 Ratio (12-20); Bilirubin,Total 0.6 mg/dL (0.3-1.2); Blood Urea Nitrogen 25 mg/dL (9-23); Calcium 9.6 mg/dL (8.3-10.6); Calcium (Corrected) 9.6 mg/dL (8.5-10.1); Carbon Dioxide 26.7 mMol/L (20.0-31.0); Chloride 103 mMol/L (98-107); Creatinine (Component) 0.8 mg/dL (0.6-1.3); Globulin 2.2 gm/dL (2.3-3.5); Glucose 103 mg/dL (74-106); Osmolality,Calculated 283 (275-295); Potassium 3.7 mMol/L (3.4-5.1); Sodium 140 mMol/L (136-145); Total Protein 6.4 gm/dL (5.7-8.2); eGFR > 60 See Note
== END 2024-08-30 23:59 | disposition home or self-care (01) ==
LOC: SCTC 14:37
PROVIDERS: PCP Internal Medicine; Referring Provider Internal Medicine; Visit Provider Internal Medicine Hematology & Oncology
DX: Z51.11 Encounter for antineoplastic chemotherapy (principal); C90.00 Multiple myeloma not having achieved remission
CPT/HCPCS: 36591; 80053; 82232; 82784; 83521; 84155; 84165; 85025; 86334; 96365; 96367; 96401; A4216; J1100; J1642; J7040; J7050; J9041

== ENCOUNTER 2024-09-26 10:06 | Outpatient (RCR) | payer MEDICARE, MEDICAID, SELFPAY ==
--- NOTE | 2024-09-11 01:50 | CTCFLWUP_ITS ---
Patient: PETER PRINCE : 1950 Page 10 of 10 FOLLOW UP NOTE DATE OF SERVICE: 09/10/2024 NAME: PETRE PRINCE ACCOUNT: [id number] : 1950 AGE: 74 INTERVAL HISTORY: Patient is complaining of tingling in both of her hands. She also says that her both hands feel numb to her. ONCOLOGY HISTORY: DIAGNOSIS: Multiple myeloma not having achieved remission [ICD10] C90.00 DATE OF DIAGNOSIS: 12/05/2019 STAGE/TNM: Multiple myeloma RISS stage III, kappa light chain multiple myeloma (12/05/2019), duplication 1 q., deletion 13 q. VRd (Velcade, Revlimid and Decadron) chemotherapy and Zometa started on 02/19/2020. Revlimid discontinued secondary to diffuse rash (03/18/2020) Last dose of Velcade was given on 10/08/2020. Was on Pomalyst 06/03/2020?02/20/2023. Pomalyst discontinued due to progression Progressed on daratumumab (03/16/2023 - 10/02/2022) Currently on Velcade cyclophosphamide and Decadron (VCd chemotherapy) started on 10/11/2023. TREATMENT HISTORY: Care?Plan Start?Date Cycle Day Intent KCL?40 03/18/2020 1 1 Palliative VCd?dose?reduced?multiple?myeloma 10/11/2023 1 21 Palliative DARatumumab?q?Wkly?RAJAT?trial?1 03/16/2023 1 7 Palliative DARatumumab?q?2?weeks 06/07/2023 1 14 Palliative VRd?low?dex?she 05/22/2020 1 21 Palliative KCL?20 03/11/2020 1 1 Palliative Zoledronic?Acid?4?mg 02/26/2020 1 90 Palliative RVd?low?dose 02/19/2020 1 21 Palliative HISTORY OF PRESENT ILLNESS: Peter Prince is a 74-year-old ENG speaking female with history of cardiac arrhythmia currently has pacemaker in place. Recently she was admitted to the hospital for right flank pain. The following work-up was performed. 12/04/2019: CT scan of the chest, abdomen and pelvis without contrast? 12/05/2019: CT-guided biopsy of the lytic lesion of the right anterior iliac bone was performed. Pathology? 12/07/2019: CT scan of the thoracic spine without contrast was also done? 01/08/2020: Patient had appointment for MRI. It was not performed due to pacemaker. 01/22/2020: CT scan of the thoracic spine lumbar spine without IV contrast? 02/07/2020: PET CT scan? 02/13/2020: Bone marrow biopsy and aspiration? 01/23/2020: Hostetter light chains 11,021.0. 02/19/2020: Patient is started on VRd chemotherapy. Free kappa light chains 11,683.1 (3.3?19.4) 02/26/2020: Patient received first dose of dose Zometa. 03/18/2020: Revlimid discontinued due to diffuse rash. 05/05/2020: Hostetter light chain 1377.7, lambda light chains 12.2. 06/22/2020: Hostetter light chains 961.8, lambda light chains 13.4. 06/03/2020: Patient is started on Pomalyst 2 mg p.o. On a 21-day on and 7 days off regimen. 08/31/2020: Hostetter light chain 224.4, lambda light chain 28.6, kappa/lambda ratio is 7.85. 09/16/2020: Decadron decreased to 20 mg p.o. once a week. 09/16/2020: Hostetter light chains 141.5, lambda light chain 21.3, kappa/lambda ratio 6.64, IgM 46, IgG 683, IgA 43. 02/25/2021: EGD? 02/08/2021: Hostetter light chain 44.8, abnormal protein band 0.2, IgG 914, IgA 70, IgM 57, Beta 2 microglobulin 2.47. 03/31/2021: Decadron decreased to 8 mg p.o. weekly. Ms. Prince continues to take Pomalyst 2 mg p.o. daily on a 21 days on and 7 days off regimen. Last dose of Zometa was given on 09/03/2020. 07/06/2021: Hostetter light chains 42.5, lambda light chain 30.0, kappa/lambda ratio 1.42, IgG 926, hemoglobin 13.9, WBC 6.6, ANC 2.9, platelets 205,000. 10/27/2021: Hostetter light chains 29.9. M protein 0.4 01/13/2022: Hostetter light chain 32.9. M protein 0.6 11/04/2022: Hostetter light chains 115.6. M protein 0.6. 12/22/2022: PET/CT scan? 02/02/2023: Bone marrow biopsy and aspiration? 02/09/2023: Hostetter light chain 264.2 03/15/2023: Hostetter light chains 424.8. 03/16/2023: Ms. Prince is started on daratumumab. 04/17/2023: Hostetter light chains 567.4. 05/10/2023 - 05/31/2023: Ms. Prince received 2500 cGy radiation therapy to the left pelvis. 05/10/2023: Hostetter light chains 562.8. 06/21/2023: Hostetter light chain is 911.6. 07/04/2023: Hostetter light chains are 1045.7 08/28/2023: Hostetter light chains at 1321.1. 09/13/2023: Hostetter light chains at 2144.5. 10/02/2023: PET/CT scan 10/10/2023: Hostetter light chains 1919.6 10/11/2023: Ms. Prince is started on Velcade, cyclophosphamide and Decadron chemotherapy. 11/07/2023: Hostetter light chains 1287.6 12/05/2023: Hostetter light chains 1415.4. 01/02/2024: Hostetter light chains 1163.0. 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 aspirin - 81 mg 1 tab Daily 2. atorvastatin - 10 mg 1 tab Daily 3. Flonase Allergy Relief - 50 mcg/actuation 1 spray twice Daily 4. fluconazole - 200 mg 1 tab Daily 5. Linzess - 72 mcg Capsule Daily 6. lisinopril - 40 mg 1 tab Daily 7. morphine - 30 mg 1 tab twice a day 8. multivitamin - 1 Capsule Daily 9. nystatin - 100,000 unit/mL 5 mL Daily 10. oxybutynin chloride - 5 mg 1 tab Daily 11. prednisone - 5 mg 1 tab 1 tablet every 8 hrs 12. Prilosec - 1 Daily 13. Zoloft - 1 Daily Medications Last Reconciled by Sherri Prince MD on 09/10/2024 ALLERGIES: No Known Allergies; No Known Drug Allergies REVIEW OF SYSTEMS: A complete 14-point review of systems was performed and is negative except as noted in interval history. PHYSICAL EXAMINATION: VITAL SIGNS: Temperature?99.6, B/P?193/94, Oxygen?Saturation?97% Weight?107?lbs (Change?since?08/29/24:?5.6?lbs) PAIN: 1 - Between no and mild pain ECOG Performance Status: 1 - Symptomatic; ambulatory; restricted in strenuous activity Conjunctive are pink. Neck is supple. No adenopathy in the neck, axillary and inguinal region. Chest clear to auscultation. No wheezes or rails audible. Abdomen distended. There is a questionable vague mass palpable around the umbilicus. No hepatosplenomegaly noted. Extremities no clubbing or cyanosis. LABORATORY DATA: I have personally reviewed and interpreted each of the patient?s relevant lab tests, abnormal findings are below: Date 08/21/24 08/28/24 ??WHITE?BLOOD?COUNT?(Thou/mm3) 8.0 7.9 ??RED?BLOOD?COUNT?(Miln/mm3) 3.45?L 3.67?L ??HEMOGLOBIN?(gm/dl) 8.6?L 9.0?L ??HEMATOCRIT?(%) 27.3?L 29.2?L ??PLATELET?COUNT?(Thou/mm3) 118?L 98?L ??NEUTROPHILS?%,?AUTO?(%) 63 72 ??LYMPH?%,?AUTO?(%) 10 9?L ??NEUTROPHILS,?AUTO?(Thou/mm3) 5.0 5.6 ??GLUCOSE,RANDOM?(mg/dL) 141?H 103 ??BLOOD?UREA?NITROGEN?(mg/dL) 18 25?H ??CREATININE?(mg/dL) 0.60 0.80 ??SODIUM?(mmol/L) 138 140 ??POTASSIUM?(mmol/L) 3.9 3.7 ??CHLORIDE?(mmol/L) 101 103 ??CrCl?(CandG)?(ml/min) 62.30 43.33 ??AST/SGOT?(Unit/L) 20 28 ??ALT/SGPT?(Unit/L) 10 11 ??ALKALINE?PHOSPHATASE?(Unit/L) 64 63 ??BILIRUBIN,?TOTAL?(mg/dL) 0.7 0.6 ??PROTEIN?TOTAL?(gm/dl) 6.2 6.4 ??ALBUMIN,?SERUM?(gm/dl) 4.0 4.2 ??GLOBULIN?(gm/dl) 2.2?L 2.2?L ??ALBUMIN/GLOBULIN?RATIO 1.8 1.9 ??CALCIUM,?SERUM?(mg/dL) 9.1 9.6 ??CALCIUM?SERUM?(CORRECTED)?(mg/dL) 9.1 9.6 ASSESSMENT/PLAN: RISS stage III, kappa light chain multiple myeloma (12/05/2019), duplication 1 q., deletion 13 q. Previously patient was treated with VRD regimen.. Patient had reaction to Revlimid with rash which according to the daughter was mild Patient was changed to daratumumab and Switched to Pomalyst after patient progressed on daratumumab Myeloma progressed on Pomalyst combination and was switched to Velcade, cyclophosphamide and Decadron started on 10/11/2023. 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 I spent a total of 50 minutes on this patient?s care on the day of their visit excluding time spent related to any billed procedures. This time includes time spent with the patient as well as time spent documenting in the medical record, reviewing patients records and tests, obtaining history, placing orders, communicating with other healthcare professionals, counseling the patient, family or caregiver, and/or care coordination for the diagnoses above. Electronically Signed by: {Object.Sanct_ID*PnP.NameFL@M}, {Object.Sanct_ID*PnP.Suffix@U} D: {Object.Sanct_Date} T: {Object.Sanct_Time} CC: Arya?Jade,? PCP: Santo Winter Referring: Santo Winter This document was completed utilizing speech recognition software. Grammatical errors, random word insertions, pronoun errors, and incomplete sentences are an occasional consequence of this system due to software limitations, ambient noise, and hardware issues. Any formal questions or concerns about the content, text or information contained within the body of this dictation should be directly addressed to the provider for clarification.
[2024-09-11 15:21] LABS: Basophils % (Auto) 0 % (0-2.5); Eosinophils # (Auto) 0.2 Thou/mm3 (0.0-0.5); Eosinophils % (Auto) 4 % (0-10); Hematocrit 27.8 % (36.0-46.0); Immature Granulocytes % (Auto) 2 % (0-0); Immature Granulocytes Auto 0.07 Thou/mm3 (0.00-0.00); Lymphocytes # (Auto) 0.5 Thou/mm3 (1.0-4.8); Lymphocytes % (Auto) 12 % (10-50); Mean Corpuscular HGB Conc 30.6 g/dl (31.0-37.0); Mean Corpuscular Hemoglobin 24.7 pg (25.0-35.0); Mean Corpuscular Volume 81 fL (80-100); Monocytes # (Auto) 0.7 Thou/mm3 (0.0-0.8); Monocytes % (Auto) 16 % (0-12); Neutrophils # (Auto) 2.9 Thou/mm3 (1.8-7.7); Neutrophils % (Auto) 67 % (37-80); Nucleated Red Blood Cell % 0 /100 WBC (0); Platelet Count 113 Thou/mm3 (140-440); RDW Standard Deviation 49.9 fL (36.4-46.3); Red Blood Count 3.44 Miln/mm3 (4.00-5.20); White Blood Count 4.3 Thou/mm3 (3.6-11.0)
[2024-09-11 15:29] LABS: Hemoglobin 8.5 g/dL (12.0-16.0)
[2024-09-11 15:54] LABS: Alanine Aminotransferase < 7 U/L (10-49); Albumin, Serum 3.8 gm/dL (3.4-4.8); Albumin/Globulin Ratio 1.8 (1.2-2.2); Alkaline Phosphatase 63 U/L (46-116); Anion Gap 6 (7-16); Aspartate Amino Transferase 26 U/L (0-34); BUN/Creatinine Ratio 24 Ratio (12-20); Bilirubin,Total 0.6 mg/dL (0.3-1.2); Blood Urea Nitrogen 12 mg/dL (9-23); Calcium 8.9 mg/dL (8.3-10.6); Calcium (Corrected) 9.1 mg/dL (8.5-10.1); Carbon Dioxide 27.2 mMol/L (20.0-31.0); Chloride 104 mMol/L (98-107); Creatinine (Component) 0.5 mg/dL (0.6-1.3); Globulin 2.1 gm/dL (2.3-3.5); Glucose 137 mg/dL (74-106); Osmolality,Calculated 275 (275-295); Potassium 3.1 mMol/L (3.4-5.1); Sodium 137 mMol/L (136-145); Thyroid Stimulating Hormone 0.76 uIU/mL (0.55-4.78); Total Protein 5.9 gm/dL (5.7-8.2); eGFR > 60 See Note
[2024-09-17 23:35] LABS: Abnormal protein band 1 0.6 g/dL (NONE DETECTED); Albumin 3.3 g/dL (3.8-4.8); Alpha-1-Globulin 0.3 g/dL (0.2-0.3); Alpha-2-Globulin 0.7 g/dL (0.5-0.9); Beta-1-Globulin 0.4 g/dL (0.4-0.6); Beta-2-globulin 0.2 g/dL (0.2-0.5); Gamma Globulin 0.8 g/dL (0.8-1.7)
[2024-09-18 06:51] LABS: Protein, total, serum 5.6 g/dL (6.1-8.1)
[2024-09-20 07:05] LABS: Immunoglobulin G 933 mg/dL (600-1540); Kappa Light Chain, Free 543.8 mg/L (3.3-19.4); Lambda Light Chain, Free 16.1 mg/L (5.7-26.3)
[2024-09-23 06:53] LABS: Beta 2 Microglobulin 3.96 mg/L (< OR = 2.51); Immunoglobulin A 19 mg/dL (70-320); Immunoglobulin M 32 mg/dL (50-300); Kappa/Lambda, Free Ratio 33.78 (0.26-1.65)
[2024-09-25 16:05] LABS: Basophils % (Auto) 0 % (0-2.5); Eosinophils # (Auto) 0.1 Thou/mm3 (0.0-0.5); Eosinophils % (Auto) 1 % (0-10); Immature Granulocytes % (Auto) 1 % (0-0); Immature Granulocytes Auto 0.09 Thou/mm3 (0.00-0.00); Lymphocytes # (Auto) 0.5 Thou/mm3 (1.0-4.8); Lymphocytes % (Auto) 6 % (10-50); Mean Corpuscular HGB Conc 31.2 g/dl (31.0-37.0); Mean Corpuscular Hemoglobin 24.8 pg (25.0-35.0); Mean Corpuscular Volume 80 fL (80-100); Monocytes # (Auto) 1.2 Thou/mm3 (0.0-0.8); Monocytes % (Auto) 14 % (0-12); Neutrophils # (Auto) 6.9 Thou/mm3 (1.8-7.7); Neutrophils % (Auto) 79 % (37-80); Nucleated Red Blood Cell % 0 /100 WBC (0); Platelet Count 108 Thou/mm3 (140-440); Red Blood Count 3.14 Miln/mm3 (4.00-5.20); White Blood Count 8.7 Thou/mm3 (3.6-11.0)
[2024-09-25 16:09] LABS: Hemoglobin 7.8 g/dL (12.0-16.0)
[2024-09-25 16:21] LABS: Alanine Aminotransferase 13 U/L (10-49); Albumin, Serum 3.7 gm/dL (3.4-4.8); Albumin/Globulin Ratio 1.9 (1.2-2.2); Alkaline Phosphatase 65 U/L (46-116); Anion Gap 11 (7-16); Aspartate Amino Transferase 25 U/L (0-34); BUN/Creatinine Ratio 30 Ratio (12-20); Bilirubin,Total 0.4 mg/dL (0.3-1.2); Blood Urea Nitrogen 15 mg/dL (9-23); Calcium 8.4 mg/dL (8.3-10.6); Calcium (Corrected) 8.6 mg/dL (8.5-10.1); Carbon Dioxide 25.2 mMol/L (20.0-31.0); Chloride 106 mMol/L (98-107); Creatinine (Component) 0.5 mg/dL (0.6-1.3); Globulin 1.9 gm/dL (2.3-3.5); Glucose 128 mg/dL (74-106); Osmolality,Calculated 285 (275-295); Sodium 142 mMol/L (136-145); Total Protein 5.6 gm/dL (5.7-8.2); eGFR > 60 See Note
[2024-09-26 11:01] LABS: Alanine Aminotransferase 31 U/L (10-49); Albumin/Globulin Ratio 1.8 (1.2-2.2); Alkaline Phosphatase 81 U/L (46-116); Anion Gap 7 (7-16); Aspartate Amino Transferase 72 U/L (0-34); BUN/Creatinine Ratio 26 Ratio (12-20); Bilirubin,Total 0.5 mg/dL (0.3-1.2); Blood Urea Nitrogen 13 mg/dL (9-23); Calcium 9.1 mg/dL (8.3-10.6); Calcium (Corrected) 9.1 mg/dL (8.5-10.1); Carbon Dioxide 26.8 mMol/L (20.0-31.0); Chloride 106 mMol/L (98-107); Creatinine (Component) 0.5 mg/dL (0.6-1.3); Globulin 2.2 gm/dL (2.3-3.5); Glucose 73 mg/dL (74-106); Osmolality,Calculated 278 (275-295); Potassium 3.5 mMol/L (3.4-5.1); Sodium 140 mMol/L (136-145); Total Protein 6.2 gm/dL (5.7-8.2); eGFR > 60 See Note
== END 2024-09-30 23:59 | disposition home or self-care (01) ==
LOC: SCTC 10:06
PROVIDERS: PCP Internal Medicine; Referring Provider Internal Medicine; Visit Provider Internal Medicine Hematology & Oncology
DX: Z51.11 Encounter for antineoplastic chemotherapy (principal); C90.00 Multiple myeloma not having achieved remission; G62.0 Drug-induced polyneuropathy; T45.1X5D Adverse effect of antineoplastic and immunosuppressive drugs, subsequent encounter
CPT/HCPCS: 36430; 36591; 80053; 82232; 82784; 83521; 84155; 84165; 84443; 85025; 86334; 86850; 86900; 86901; 86923; 96367; 96413; 99212; A4216; J1100; J1453; J1642; J2405; J7040; J7050; J9075; P9016; G0463

== ENCOUNTER 2024-10-17 08:12 | Emergency (ER) | payer MEDICARE, SELFPAY ==
[2024-10-17] VITALS (7 sets, daily range): BP systolic 131–169; BP diastolic 71–100; PULSE 63–101; RESP 16–20; TEMP 37.3–38.2; O2SAT 96–100; BMI 21.4
--- NOTE | 2024-10-17 08:57 | EKG_ITS ---
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
--- NOTE | 2024-10-17 08:57 | XR_ITS ---
Examination: CT brain head without contrast. 2-D sagittal coronal reconstructions Date and time of exam:October 17, 2024 0905 hours INDICATIONS: Onset dizziness weakness today, diagnosis multiple myeloma CTDI: vol (mGy):46.8 DLP: (mGycm):883 Technique: Multiple CT axial sections of the brain have been obtained, 5 mm slice thickness. Contrast has not been administered. 2-D sagittal, coronal reconstructions have been obtained Low dose protocols were performed. One or more of the following dose reduction techniques were used; automated exposure control, adjustment of the mA and/or KV according to patient size, use of iterative reconstruction technique. Findings: No significant ventricular enlargement. Intra-axial or extra-axial hemorrhage density is not seen. No mass effect or midline shift Basal cisterns are not remarkable. Fourth ventricle is midline. Cranial vault demonstrates multiple osteolytic lesions consistent with the patient's diagnosis of multiple myeloma Severe chronic pansinusitis Impression: Negative for acute hemorrhage, mass effect or midline shift Advise clinical correlation follow-up accordingly
--- NOTE | 2024-10-17 08:57 | XR_ITS ---
Examination: AP chest single view TECHNIQUE: AP portable upright chest single view Exam date and time: October 17, 2024 0933 hours Comparison April 23, 2022 INDICATIONS: Dizziness shortness of breath today. FINDINGS: Mild prominence left ventricle Early pneumonia left base Right internal jugular Port-A-Cath tip satisfactory position as well as transvenous dual-chamber bipolar cardiac leads Mild vascular congestion IMPRESSION: Mild pneumonia left base Mild vascular congestion
--- NOTE | 2024-10-17 09:02 | PD.EDRME ---
Rapid Medical Screening Exam RME Arrival date/time: 10/17/24 08:12 This is a 74-year-old female history of multiple myeloma per family member she has been weak nausea vomiting off balance for the 3 days. I have greeted and performed a focused initial assessment of this patient. Initial appropriate labs ordered at this time. A comprehensive ED assessment and evaluation of the patient and analysis of all test and completion of medical decision making process will be conducted by additional ED provider. Chief Complaint: Nausea/Vomiting/Diarrhea Time Seen by Provider: 10/17/24 08:40 Vital signs: Vital Signs Temperature 99.1 F 10/17/24 08:47 Pulse Rate 78 10/17/24 08:47 Respiratory Rate 20 10/17/24 08:47 Blood Pressure 131/79 H 10/17/24 08:47
[2024-10-17 09:55] LABS: Lactate (Lactic Acid) 1.7 mMol/L (0.4-2.0)
[2024-10-17 10:01] LABS: Basophils # (Auto) 0.1 Thou/mm3 (0.0-0.2); Basophils % (Auto) 1 % (0-2.5); Eosinophils # (Auto) 0.2 Thou/mm3 (0.0-0.5); Eosinophils % (Auto) 1 % (0-10); Hematocrit 35.8 % (36.0-46.0); Hemoglobin 11.9 g/dL (12.0-16.0); Immature Granulocytes % (Auto) 2 % (0-0); Immature Granulocytes Auto 0.29 Thou/mm3 (0.00-0.00); Lymphocytes # (Auto) 0.3 Thou/mm3 (1.0-4.8); Lymphocytes % (Auto) 2 % (10-50); Mean Corpuscular HGB Conc 33.2 g/dl (31.0-37.0); Mean Corpuscular Hemoglobin 25.5 pg (25.0-35.0); Mean Corpuscular Volume 77 fL (80-100); Monocytes # (Auto) 2.3 Thou/mm3 (0.0-0.8); Monocytes % (Auto) 15 % (0-12); Neutrophils # (Auto) 12.3 Thou/mm3 (1.8-7.7); Neutrophils % (Auto) 80 % (37-80); Nucleated Red Blood Cell % 0 /100 WBC (0); Platelet Count 100 Thou/mm3 (140-440); RDW Standard Deviation 49.2 fL (36.4-46.3); Red Blood Count 4.66 Miln/mm3 (4.00-5.20); White Blood Count 15.4 Thou/mm3 (3.6-11.0)
[2024-10-17 10:11] LABS: Partial Thromboplastin Time 31.6 Seconds (22.0-36.0); Prothrombin Time 11.3 Seconds (9.0-12.2)
[2024-10-17 10:34] LABS: Alanine Aminotransferase 27 U/L (10-49); Albumin, Serum 4.1 gm/dL (3.4-4.8); Albumin/Globulin Ratio 1.8 (1.2-2.2); Alkaline Phosphatase 88 U/L (46-116); Anion Gap 9 (7-16); Aspartate Amino Transferase 50 U/L (0-34); BUN/Creatinine Ratio 41 Ratio (12-20); Blood Urea Nitrogen 33 mg/dL (9-23); Carbon Dioxide 24.3 mMol/L (20.0-31.0); Chloride 92 mMol/L (98-107); Creatinine (Component) 0.8 mg/dL (0.6-1.3); Estimated Creatinine Clearance 41.4 mL/min (>60); Globulin 2.3 gm/dL (2.3-3.5); Glucose 132 mg/dL (74-106); Magnesium 2.7 mg/dL (1.6-2.6); Osmolality,Calculated 260 (275-295); Potassium 2.8 mMol/L (3.4-5.1); Procalcitonin 2.76 ng/ml (0.0-0.49); Sodium 125 mMol/L (136-145); Total Protein 6.4 gm/dL (5.7-8.2); eGFR > 60 See Note
[2024-10-17 10:36] LABS: Troponin I 0.246 ng/mL (0.0-0.045)
[2024-10-17] MEDS: ACETAMINOPHEN 500 MG TABLET 1000 MG PO (11:11)
--- NOTE | 2024-10-17 11:30 | PD.EDWEAK ---
ED Weakness RME/HPI General Chief complaint: Nausea/Vomiting/Diarrhea Stated complaint: DIARRHEAX2 DAYS, N/V, GENERALIZED WEAKNESS X1 WEEK Time Seen by Provider: 10/17/24 08:40 Arrival date/time: 10/17/24 08:12 RME / HPI RME / HPI Narrative: 10/17/24 08:12 This is a 74-year-old female history of multiple myeloma per family member she has been weak nausea vomiting off balance for the 3 days. I have greeted and performed a focused initial assessment of this patient. Initial appropriate labs ordered at this time. A comprehensive ED assessment and evaluation of the patient and analysis of all test and completion of medical decision making process will be conducted by additional ED provider. DR. CHRISTY MAIN ED EVALUATION: 74 year old female with history of RISS stage III, kappa light chain multiple myeloma undergoing chemotherapy weekly presents to the ED for evaluation of generalized malaise today. Patient reports because of the weekly chemotherapy, she will go through periods of feeling ill without focal complaints. As a result misses some episodes and missed chemotherapy this week. Per caregiver, in the past the magnesium has been low. Per caregiver, patient refractory to all treatments and is being referred to [facility] for study involvement. Related Data Home Medications ?Medication ?Instructions ?Recorded ?Confirmed atorvastatin 20 mg tablet 20 mg PO HS 08/21/19 10/17/23 benazepril 40 mg tablet 40 mg PO QDAY 08/21/19 10/17/23 sertraline 25 mg tablet (Zoloft) 25 mg PO QDAY 02/13/20 10/17/23 aspirin 81 mg tablet,delayed 81 mg PO QDAY 02/02/23 10/17/23 release Held on 07/09/24. Instructions: Resume on 07/16/24. May resume on 07/16/24 Allergies Allergy/AdvReac Type Severity Reaction Status Date / Time No Known Allergies Allergy Verified 10/17/24 08:15 Review of Systems Review of Systems Narrative Review of Systems: Gen: No fever, no chills, +generalized malaise EYES: No discharge, no visual changes, no pain HEENT: No ear pain, no congestion, no sore throat PULM: no shortness of breath, no cough, no congestion CV: No chest pain, no dyspnea on exertion, no palpitations, no chest tightness GI: +nausea, + vomiting, no diarrhea, no pain, no constipation : No frequency, no urgency,? no dysuria Musc/skel: No joint pain, no back pain Skin: No rash, no ecchymosis, no lesions Psyc: No hallucinations, no depression Heme/Lymph: No easy bleeding or bruising tendencies Neuro: +generalized weakness, no headache Past Medical History Past Medical History NEUROLOGIC: Positive Neurological Disorders (forgetful) CARDIAC: Positive Cardiac Disorders, Hypercholesterolemia and Hypertension REPRODUCTIVE: Positive Previous Pregnancies (x1) MUSCULOSKELETAL: Positive Musculoskeletal Disorders, Bone Cancer, Arthritis and Rheumatoid Arthritis ENT: Positive Cataracts PSYCHO/SOCIAL: Positive Depression and Anxiety OTHER HISTORY: Positive Falls, Chemotherapy, Radiation Therapy and Cancer (Myeloma) Surgical History SURGICAL: Positive Cardiac Surgery and Pacemaker (left upper chest) Social History SMOKING STATUS: Never smoker SUBSTANCE USE: does not use ED Exam Narrative Physical exam: GENERAL APPEARANCE: Slightly lethargic, no obvious distress, nontoxic appearing HEENT: NC, AT. MM dry. EOMI, clear conjunctiva, oropharynx clear. NECK: Supple without lymphadenopathy. No stiffness or restricted ROM. HEART: Normal rate and regular rhythm, normal S1/S1, no m/r/g LUNGS: CTAB, moving air well. No crackles or wheezes are heard. ABDOMEN: Soft, nontender, nondistended with good bowel sounds heard. BACK: No midline C/T/L spine pain or deformity, No CVAT, no obvious deformity. EXTREMITIES: Without cyanosis, clubbing or edema. MUSCULOSKELETAL: FROM of all major joints, no chest tenderness NEUROLOGICAL: Grossly nonfocal. Slightly lethargic, moving all 4 extremities. CN not formally tested but appear grossly intact. Skin: Warm and dry without any rash. Course Quality Measures none Orders Category Date Time Status Bedside Blood Glucose NOW Care 10/17/24 08:57 Active Bedside Influenza A&B Antigen Test NOW Care 10/17/24 09:01 Completed EKG (ED ONLY) *Do not use* NOW Care 10/17/24 08:57 Completed Insert IV NOW Care 10/17/24 13:[address] head/brain wo con Stat Exams 10/17/24 08:57 Completed EKG (ED Only) Stat Exams 10/17/24 08:57 Draft XR chest 1V portable Stat Exams 10/17/24 08:57 Completed Blood Culture (Lab) Stat Lab 10/17/24 09:51 Received CBC Stat Lab 04/17/25 09:51 Completed Comprehensive Metabolic Panel Stat Lab 10/17/24 09:51 Completed Lactic Acid [Lactate (Lactic Acid)] Stat Lab 10/17/24 09:51 Completed Magnesium Stat Lab 10/17/24 09:51 Completed Partial Thromboplastin Time Stat Lab 10/17/24 09:51 Completed Path Review Blood Smear Stat Lab 10/17/24 09:51 Completed Procalcitonin Stat Lab 10/17/24 09:51 Completed Prothrombin Time with INR Stat Lab 10/17/24 09:51 Completed Troponin I Stat Lab 10/17/24 09:51 Completed Troponin I Stat Lab 10/17/24 16:02 Completed Urinalysis Stat Lab 10/17/24 08:57 Ordered Acetaminophen Tab [Tylenol ES Tab] Med 10/17/24 11:02 Discontinued 1,000 mg PO X1 ONE KCL 10% Liq UDC 15 ML Med 10/17/24 13:27 Discontinued 40 meq PO X1 ONE Sodium Chloride 0.9% 1000 ml [Ns] 1,000 ml Med 10/17/24 13:27 Discontinued IV 999 mls/hr Sodium Chloride 0.9% 500 ml [Ns] 500 ml Med 10/17/24 13:27 Discontinued IV 999 mls/hr Reevaluation(s) Reevaluation #1: Reviewed patients labs, calcium and magnesium are low, troponin borderline elevated. Pending delta trop. Time: 15:44 Reevaluation #2: Patient remains clinically stable throughout the emergency department visit. We reviewed all the results, analysis, and treatment plans. Patient is amenable to discharge. Strict return precautions were outlined. Patient was discharged in stable condition. Time: 17:30 Vital Signs Vital signs: Vital Signs Temperature 99.1 F 10/17/24 08:47 Pulse Rate 78 10/17/24 08:47 Respiratory Rate 20 10/17/24 08:47 Blood Pressure 131/79 H 10/17/24 08:47 Weakness MDM Narrative MDM Narrative:: Yessy Puga am scribing for and in the presence of Dr. Christy. 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 ) Lab and/or radiology exams considered but not ordered:: None Interpretation Summary: Ordering Physician: Dayana MillanPOM[facility]ENTERAlysia Jessica Date of Service: 10/17/24 Procedure(s): XR chest 1V portable Accession Number(s): [id number] cc: Santo Winter MD; Garfield Neil MD; Dayana MillanPOMONA VALLEY [facility] MED[facility] CENTERAlysia Jessica~ Examination: AP chest single view TECHNIQUE: AP portable upright chest single view Exam date and time: October 17, 2024 0933 hours Comparison April 23, 2022 INDICATIONS: Dizziness shortness of breath today. FINDINGS: Mild prominence left ventricle Early pneumonia left base Right internal jugular Port-A-Cath tip satisfactory position as well as transvenous dual-chamber bipolar cardiac leads Mild vascular congestion IMPRESSION: Mild pneumonia left base Mild vascular congestion Dictated By: Garfield Neil MD Signed By: <Electronically signed by Garfield Neil MD in OV>10/17/24 0953 Ordering Physician: Dayana MillanPOM[facility]ENTERAlysia Jessica Date of Service: 10/17/24 Procedure(s): CT head/brain wo con Accession Number(s): [id number] cc: Santo Winter MD; Garfield Neil MD; Dayana MillanPOMONA [facility] CENTERAlsyia Jessica~ Examination: CT brain head without contrast. 2-D sagittal coronal reconstructions Date and time of exam:October 17, 2024 0905 hours INDICATIONS: Onset dizziness weakness today, diagnosis multiple myeloma CTDI: vol (mGy):46.8 DLP: (mGycm):883 Technique: Multiple CT axial sections of the brain have been obtained, 5 mm slice thickness. Contrast has not been administered. 2-D sagittal, coronal reconstructions have been obtained Low dose protocols were performed. One or more of the following dose reduction techniques were used; automated exposure control, adjustment of the mA and/or KV according to patient size, use of iterative reconstruction technique. Findings: No significant ventricular enlargement. Intra-axial or extra-axial hemorrhage density is not seen. No mass effect or midline shift Basal cisterns are not remarkable. Fourth ventricle is midline. Cranial vault demonstrates multiple osteolytic lesions consistent with the patient's diagnosis of multiple myeloma Severe chronic pansinusitis Impression: Negative for acute hemorrhage, mass effect or midline shift Advise clinical correlation follow-up accordingly Dictated By: Garfield Neil MD Signed By: <Electronically signed by Garfield Neil MD in OV>10/17/24 0935 Medications / Prescriptions Medications or Prescriptions considered but not ordered:: none Medication administrations:: Medication Administration History Discontinued Medications Acetaminophen (Acetaminophen 500 Mg Tablet) 1,000 mg PO X1 ONE Stop: 10/17/24 11:03 Last Admin: 10/17/24 11:11 Dose: 1,000 mg Documented By: SHAHEED Sodium Chloride (Ns) 1,000 mls @ 999 mls/hr IV .Q1H1M ONE Stop: 10/17/24 14:27 Last Infusion: 10/17/24 15:42 Dose: Infused Documented By: Admin: 10/17/24 13:53 Dose: 999 mls/hr Documented By: SHAHEED Sodium Chloride (Ns) 500 mls @ 999 mls/hr IV .Q31M ONE Stop: 10/17/24 13:57 Last Infusion: 10/17/24 15:41 Dose: Infused Documented By: Admin: 10/17/24 13:53 Dose: 999 mls/hr Documented By: SHAHEED Potassium Chloride (Potassium Chloride 10% 20 Meq/15 Ml Udc) 40 meq PO X1 ONE Stop: 10/17/24 13:28 Last Admin: 10/17/24 13:49 Dose: 40 meq Documented By: SHAHEED See above Consultations Consultation(s) initiated? (list below): No Diagnosis Weakness Differential Diagnosis: acute myocardial infarction, anemia, hypoglycemia, hypothyroidism, sepsis and dehydration Most likely diagnosis given after review of the tests above:: Acute dehydration Acute hyponatremia Admission Indicated Admission indicated?: not indicated Admission Request Was there a request for admission?: No Disposition Plan Disposition Plan: Discharge Discharge Attestation Discharge Attestation: The patient and all family members were given an opportunity to ask questions and understood the discharge instructions. Discharge instructions specifically effects, indications for sooner follow up or return to the emergency department, and the expected course of current diagnosis. Patient condition: Stable Discharge Plan Prescriptions/Referrals Prescriptions/Med Rec: No Action sertraline [Zoloft] 25 mg Tablet 25 mg PO QDAY atorvastatin 20 mg Tablet 20 mg PO HS benazepril 40 mg Tablet 40 mg PO QDAY aspirin 81 mg Tablet,Delayed Release (Dr/Ec) 81 mg PO QDAY Referrals: Satno Winter MD [Primary Care Provider] - In 1 week Problem List Clinical Impression: Acute dehydration, Acute hyponatremia Patient/Caregiver Discharge Instructions Education Materials: ED Dehydration (Adult), ED Hyponatremia Additional Instructions: Follow-up with your primary doctor in 2-3 days if symptoms are not improving. You can return to the emergency department sooner if symptom worsen or for any new or concerning issues. Print Language: Maltese
[2024-10-17] MEDS: POTASSIUM CHLORIDE 10% 20 MEQ/15 ML UDC 40 MEQ PO (13:49)
[2024-10-17] MEDS: SODIUM CHLORIDE 0.9% 500 ML 500 ML 999 ML IV (13:53)
[2024-10-17] MEDS: SODIUM CHLORIDE 0.9% 1000 ML 1,000 ML 999 ML IV (13:53)
[2024-10-17 16:19] LABS: Path Review Blood Smear Sent to Pathologist
[2024-10-17 17:07] LABS: Troponin I 0.224 ng/mL (0.0-0.045)
== END 2024-10-17 17:50 | disposition home or self-care (01) ==
PROVIDERS: Nurse Practitioner Primary Care; Emergency Provider Emergency Medicine; PCP Internal Medicine
DX: E86.0 Dehydration (principal); E87.1 Hypo-osmolality and hyponatremia; J18.9 Pneumonia, unspecified organism; R53.1 Weakness; R42 Dizziness and giddiness; R94.31 Abnormal electrocardiogram [ECG] [EKG]; E78.00 Pure hypercholesterolemia, unspecified; I10 Essential (primary) hypertension
CPT/HCPCS: 36415; 70450; 71045; 80053; 81001; 83605; 83735; 84145; 84484; 85025; 85610; 85730; 87040; 87400; 93005; 96360; 96361; 99284; J7030; J7040; A9270

== ENCOUNTER 2024-10-19 15:16 | Inpatient (IN) | payer MEDICARE, MEDICAID, SELFPAY ==
[2024-10-19] VITALS (8 sets, daily range): BP systolic 126–149; BP diastolic 60–84; PULSE 63–73; RESP 17–25; TEMP 36.8–38.8; O2SAT 95–99; BMI 20.2; BMI 22.0
--- NOTE | 2024-10-19 16:12 | XR_ITS ---
Examination: CT abdomen with intravenous contrast CT pelvis with intravenous contrast 2-D coronal reconstructions 2-D sagittal reconstructions Date and time of exam:October 19, 2024 1820 hrs. Comparison October 2023 PET/CT scan. CTDI: vol (mGy) 8.80 DLP: (mGycm) 278.8 Technique: Multiple axial sections of the abdomen and pelvis have been obtained. 64 slice high-resolution scanner used. 3 mm axial sections have been obtained, post intravenous injection 60 cc [id number] 2-D sagittal, coronal reconstructions obtained. Low dose protocols were performed. One or more of the following dose reduction techniques were used; automated exposure control, adjustment of the mA and/or KV according to patient size, use of iterative reconstruction technique. Findings: Prominent pneumonia left base Mild enlargement cardiac contour Prominent gastric hernia No focal liver or splenic lesions Contracted gallbladder. 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
--- NOTE | 2024-10-19 16:25 | PD.EDADULT ---
ED General RME/HPI General Chief complaint: Nausea/Vomiting/Diarrhea Stated complaint: DIARRHEA FOR 6 DAYS. SEEN IN E.D. Time Seen by Provider: 10/19/24 16:10 Arrival date/time: 10/19/24 15:16 RME / HPI RME / HPI narrative: 74 year old female with a history of RISS Stage III kappa light chain multiple myeloma, currently undergoing weekly chemotherapy, presents to the ED for evaluation of diarrhea. Per daughter, the patient is typically able to get out of bed and use the bedside commode, but today she had several episodes of incontinence, soiling herself in bed. Stools were described as yellow-brown and mixed with blood. The patient was evaluated in the ED yesterday for generalized malaise, which she experiences intermittently, more so after chemotherapy. Her last chemotherapy session was two weeks ago. Daughter denies any associated fever, cough, abdominal pain, or vomiting. Related Data Home Medications ?Medication ?Instructions ?Recorded ?Confirmed atorvastatin 20 mg tablet 20 mg PO HS 08/21/19 10/17/23 benazepril 40 mg tablet 40 mg PO QDAY 08/21/19 10/17/23 sertraline 25 mg tablet (Zoloft) 25 mg PO QDAY 02/13/20 10/17/23 aspirin 81 mg tablet,delayed 81 mg PO QDAY 02/02/23 10/17/23 release Held on 07/09/24. Instructions: Resume on 07/16/24. May resume on 07/16/24 Allergies Allergy/AdvReac Type Severity Reaction Status Date / Time No Known Allergies Allergy Verified 10/19/24 15:19 Review of Systems Review of Systems Narrative Review of Systems: Gen: No fever, no chills EYES: No discharge, no visual changes, no pain HEENT: No ear pain, no congestion, no sore throat PULM: no shortness of breath, no cough, no congestion CV: No chest pain, no palpitations, no chest tightness GI: No nausea, no vomiting, +diarrhea, no pain, no constipation : No frequency, no urgency,? no dysuria Musc/skel: No joint pain, no back pain Skin: No rash, no ecchymosis, no lesions Neuro: No weakness, no headache Past Medical History Past Medical History CARDIAC: Positive Cardiac Disorders, Hypercholesterolemia and Hypertension REPRODUCTIVE: Positive Previous Pregnancies MUSCULOSKELETAL: Positive Musculoskeletal Disorders, Bone Cancer, Arthritis and Rheumatoid Arthritis ENT: Positive Cataracts PSYCHO/SOCIAL: Positive Depression and Anxiety OTHER HISTORY: Positive Falls, Chemotherapy, Radiation Therapy and Cancer Surgical History SURGICAL: Positive Cardiac Surgery and Pacemaker Social History SMOKING STATUS: Never smoker SUBSTANCE USE: does not use ED Exam Narrative Physical exam: GENERAL APPEARANCE: AOx4, nontoxic appearing HEENT: NC, AT. MMM. EOMI, clear conjunctiva, oropharynx clear. NECK: Supple without lymphadenopathy. No stiffness or restricted ROM. HEART: Normal rate and regular rhythm, normal S1/S1, no m/r/g LUNGS: CTAB, moving air well. No crackles or wheezes are heard. ABDOMEN: Soft, nontender, nondistended with good bowel sounds heard. BACK: No midline C/T/L spine pain or deformity, No CVAT, no obvious deformity. EXTREMITIES: Without cyanosis, clubbing or edema. NEUROLOGICAL: Grossly nonfocal. Alert and oriented. CN not formally tested but appear grossly intact. Skin: Warm and dry without any rash. Course Course Course Narrative: 1800: Patient signed out pending CT/Labs and final disposition. Quality Measures none Orders Category Date Time Status CT Screening NOW Care 10/19/24 16:[address] abdomen pelvis w con Stat Exams 10/19/24 16:12 Ordered Blood Culture (Lab) Stat Lab 10/19/24 17:44 Ordered CBC Stat Lab 10/19/24 16:23 Completed CMP [Comprehensive Metabolic Panel] Stat Lab 10/19/24 16:23 Completed Lactate (Lactic Acid) Stat Lab 10/19/24 16:23 Results Mag [Magnesium] Stat Lab 10/19/24 16:23 Completed Partial Thromboplastin Time Stat Lab 10/19/24 16:23 Completed Prothrombin Time with INR Stat Lab 10/19/24 16:23 Completed Urinalysis Stat Lab 10/19/24 16:42 Received POTASSIUM CHL 10 mEq IVPB [Kcl Ivpb] Med 10/19/24 17:44 Active 10 meq in 100 ml IV X1 Potassium Chloride [K-Dur] Med 10/19/24 17:44 Discontinued 40 meq PO X1 ONE Sodium Chloride 0.9% 1000 ml [Ns] 1,000 ml Med 10/19/24 16:03 Discontinued IV 999 mls/hr Vital Signs Vital signs: Vital Signs Temperature 100.7 F H 10/19/24 15:38 Pulse Rate 73 10/19/24 15:38 Respiratory Rate 18 10/19/24 15:38 Blood Pressure 138/84 H 10/19/24 15:38 Pulse Oximetry (%) 95 10/19/24 15:38 Oxygen Delivery Method Room Air 10/19/24 15:38 Pulse ox is 95% on room air which is adequate. Discharge Plan Prescriptions/Referrals Prescriptions/Med Rec: No Action sertraline [Zoloft] 25 mg Tablet 25 mg PO QDAY atorvastatin 20 mg Tablet 20 mg PO HS benazepril 40 mg Tablet 40 mg PO QDAY aspirin 81 mg Tablet,Delayed Release (Dr/Ec) 81 mg PO QDAY Referrals: Santo Winter MD [Primary Care Provider] - In 1 week Problem List Clinical Impression: Multiple myeloma, Dehydration, Diarrhea, Hypokalemia Patient/Caregiver Discharge Instructions Print Language: Ukrainian MDM Patient Acuity High Acuity (complete MDM) Narrative: Yessy Puga am scribing for and in the presence of Dr. Landaverde. Clinical Information Provided by: family (Daughter ) Medical Records reviewed [facility] Medical Records additional comments: I reviewed ED visit from 2 days ago Meds/Rx considered, not ordered None Labs/Rad/Tests considered, not ordered None Chronic Illness/Social Conditions which may negatively complicate care or outcome(s)-explain: None or not applicable EKG EKG not done Labs Labs: Interpreted by me Lab(s) Interpretation(s): As noted above Imaging Imaging interpretation: none or see narrative above Medication Administration(s) Medication Administration History Potassium Chloride (Kcl Ivpb) 10 meq in 100 mls @ 100 mls/hr IV X1 ONE Stop: 10/19/24 18:43 Discontinued Medications Sodium Chloride (Ns) 1,000 mls @ 999 mls/hr IV .Q1H1M ONE Stop: 10/19/24 17:03 Last Admin: 10/19/24 17:00 Dose: 999 mls/hr Documented By: GM Potassium Chloride (Potassium Chloride 20 Meq Tabcr) 40 meq PO X1 ONE Stop: 10/19/24 17:45 See above
[2024-10-19 16:36] LABS: Lactate (Lactic Acid) 2.1 mMol/L (0.4-2.0)
[2024-10-19 16:40] LABS: Basophils # (Auto) 0.1 Thou/mm3 (0.0-0.2); Basophils % (Auto) 0 % (0-2.5); Eosinophils # (Auto) 0.2 Thou/mm3 (0.0-0.5); Eosinophils % (Auto) 1 % (0-10); Hematocrit 34.1 % (36.0-46.0); Hemoglobin 11.5 g/dL (12.0-16.0); Immature Granulocytes % (Auto) 5 % (0-0); Immature Granulocytes Auto 0.94 Thou/mm3 (0.00-0.00); Lymphocytes # (Auto) 0.5 Thou/mm3 (1.0-4.8); Lymphocytes % (Auto) 2 % (10-50); Mean Corpuscular HGB Conc 33.7 g/dl (31.0-37.0); Mean Corpuscular Hemoglobin 25.7 pg (25.0-35.0); Mean Corpuscular Volume 76 fL (80-100); Monocytes # (Auto) 1.3 Thou/mm3 (0.0-0.8); Monocytes % (Auto) 7 % (0-12); Neutrophils # (Auto) 16.2 Thou/mm3 (1.8-7.7); Neutrophils % (Auto) 85 % (37-80); Nucleated Red Blood Cell % 0 /100 WBC (0); Platelet Count 108 Thou/mm3 (140-440); RDW Standard Deviation 48.6 fL (36.4-46.3); Red Blood Count 4.47 Miln/mm3 (4.00-5.20); White Blood Count 19.1 Thou/mm3 (3.6-11.0)
[2024-10-19 16:53] LABS: Partial Thromboplastin Time 24.3 Seconds (22.0-36.0); Prothrombin Time 11.4 Seconds (9.0-12.2)
[2024-10-19] MEDS: SODIUM CHLORIDE 0.9% 1000 ML 1,000 ML 999 ML IV (17:00)
[2024-10-19 17:05] LABS: Alanine Aminotransferase 55 U/L (10-49); Albumin, Serum 3.6 gm/dL (3.4-4.8); Anion Gap 10 (7-16); Aspartate Amino Transferase 130 U/L (0-34); BUN/Creatinine Ratio 35 Ratio (12-20); Blood Urea Nitrogen 21 mg/dL (9-23); Calcium 7.8 mg/dL (8.3-10.6); Calcium (Corrected) 8.1 mg/dL (8.5-10.1); Carbon Dioxide 20.7 mMol/L (20.0-31.0); Chloride 98 mMol/L (98-107); Creatinine (Component) 0.6 mg/dL (0.6-1.3); Estimated Creatinine Clearance 55.3 mL/min (>60); Globulin 1.7 gm/dL (2.3-3.5); Glucose 113 mg/dL (74-106); Magnesium 2.5 mg/dL (1.6-2.6); Osmolality,Calculated 262 (275-295); Sodium 129 mMol/L (136-145); Total Protein 5.3 gm/dL (5.7-8.2); eGFR > 60 See Note
[2024-10-19 17:06] LABS: Albumin/Globulin Ratio 2.1 (1.2-2.2); Alkaline Phosphatase 95 U/L (46-116)
[2024-10-19 17:30] LABS: Potassium 2.7 mMol/L (3.4-5.1)
[2024-10-19] MEDS: POTASSIUM CHLORIDE 20 mEq TABCR 40 MEQ PO (18:51)
[2024-10-19] MEDS: POTASSIUM CHLORIDE 10% 20 MEQ/15 ML UDC 40 MEQ PO (18:52)
[2024-10-19] MEDS: POTASSIUM CHL 10 mEq IVPB 10 MEQ/100 ML BAG 100 MEQ IV (18:52)
--- NOTE | 2024-10-19 19:10 | XR_ITS ---
Examination: AP chest single view Technique one AP portable upright chest single view Exam date and time: October 19, 20242001 hrs. Comparison October Indications: Generalized malaise shortness of breath this week. Findings: Mild enlargement cardiac contour Moderate vascular congestion No lobar pneumonia. Right internal jugular Port-A-Cath tip SVC satisfactory position Transvenous dual-chamber bipolar cardiac leads satisfactory position Moderate osteopenia Impression: Moderate vascular congestion No pneumonia
--- NOTE | 2024-10-19 19:10 | EKG_ITS ---
[facility] Test Date: 2024-10-19 Pat Name: CARLOS LOPEZ Department: Room: - Gender: Female [employer] Former: : 1950 Requested By: Gio Gordon Order Number: [id number] Reading MD: Gio Gordon Measurements Intervals [place] Rate: 86 P: 151 DE: 167 QRS: -40 QRSD: 93 T: 8 QT: 396 QTc: 474 Interpretive Statements ELECTRONIC ATRIAL PACEMAKER LEFT AXIS DEVIATION [QRS AXIS < -30] Compared to ECG 10/17/2024 09:15:03 T-wave abnormality no longer present /store/S0/[id number]/ecg/[id number].pdf
[2024-10-19 19:33] LABS: Reflex Lactate? Y
[2024-10-19] MEDS: cefTRIAXone 1,000 MG in SODIUM CHLORIDE 0.9% (Popper) 50 ML 100 MG IV (19:42)
[2024-10-19] MEDS: ACETAMINOPHEN IVPB 1,000 MG/100 ML VIAL 250 MG IV (19:43)
[2024-10-19] MEDS: ONDANSETRON INJ 2 MG/ML INJ 2 ML 4 MG IV (19:45)
[2024-10-19] MEDS: KETOROLAC INJ 30 MG/ML VIAL 15 MG IVP (19:46)
--- NOTE | 2024-10-19 19:46 | PD.EDADDENDU ---
Emergency Room Addendum Addendum Narrative: My interpretation of the EKG: Paced rhythm (86 bpm). Gio Hansen MD
[2024-10-19 20:46] LABS: Amylase 45 U/L (30-118); Bilirubin,Direct 0.5 mg/dL (0.0-0.3); C-Reactive Protein 24.2 mg/dL (0.0-0.9); Free T4 (Free Thyroxine) 1.17 ng/dL (0.89-1.76); Lipase 50 U/L (12-53); Procalcitonin 2.49 ng/ml (0.0-0.49); Thyroid Stimulating Hormone 0.49 uIU/mL (0.55-4.78)
[2024-10-19 21:01] LABS: Sed Rate (ESR) 122 mm/hr (0-30)
[2024-10-19 21:28] LABS: Lactic Acid, 3 HR 1.4 mMol/L (0.4-2.0)
[2024-10-19] MEDS: AZITHROMYCIN INJ 500 MG in SODIUM CHLORIDE 0.9% 250 ML 250 ML 250 MG IV (21:33)
[2024-10-19] MEDS: SODIUM CHLORIDE 0.9% 1000 ML 1,000 ML 75 ML IV (22:12)
--- NOTE | 2024-10-19 22:30 | PD.RESHP ---
Documentation for date of: 10/19/24 [facility] History of Present Illness Chief complaint: general weakness, diarrhea History of present illness: The patient is a 74-year-old female with a previous medical history of developmental delay with disability, hypertension, barycardia s/p pacemaker implantation, multiple myeloma on chemotherapy, anxiety who was brought in by her niece on 10/19/24 due to general weakness and watery diarrhea tinged with blood. Patient is too weak to speak. According to the niece, she is at the baseline is verbal and is able to walk independently, but requires transportation to her doctor's appointment. Is also reported that she has been having general weakness and diarrhea for a week. On 10/17/24 the patient came to the ED with general weakness, was discharged after IV fluids, potassium supplement and acetaminophen. Patient's condition did not improve and they decided to come to the ED. Family member denies antibiotic course in the last 2 weeks, sick contacts at home. Per chart review the patient has been following up with Dr. Edward and has been receiving palliative chemotherapy with Velcade cyclophosphamide and Decadron. Due to the weakness, patient received his last weekly chemotherapy session. ED course: Blood pressure 138/84, heart rate 73, temperature 100.7, saturating well on room air. Labs showed WBC count 19.1 hemoglobin 11.5, platelets 100.8. INR 1.0. Sodium 129, potassium 2.7, chloride 98, carbon dioxide 20.7, BUN 21, creatinine 0.6, glucose 113, lactic acid 2.1 downtrending to 1.4, corrected calcium 8.1, AST 130, ALT 55, C-reactive protein 24.2, total protein 5.3, procalcitonin 2.49, TSH 0.49, free T4 1.17. She received 1 L of IV fluids, 90 mEq of potassium, 1 g acetaminophen IV, ceftriaxone 1 g, azithromycin 500 mg, ondansetron, azithromycin. Social history: Denies smoking, alcohol use. Disabled due to developmental delay. Home medications: Atorvastatin 20 mg, benazepril 40, Linzess, morphine 30 mg p.o. every 12 hours, oxybutynin, pantoprazole, sertraline 25. Surgical history: Denies Allergies: Niece does not know for sure, no previous medical record of allergies. Patient is going to be admitted for acute infectious diarrhea treatment and management. Review of Systems Review of Systems ROS Unobtainable: unobtainable due to medical condition Past Medical History Past Medical History CARDIAC: Positive Cardiac Disorders, Hypercholesterolemia and Hypertension REPRODUCTIVE: Positive Previous Pregnancies MUSCULOSKELETAL: Positive Musculoskeletal Disorders, Bone Cancer, Arthritis and Rheumatoid Arthritis ENT: Positive Cataracts PSYCHO/SOCIAL: Positive Depression and Anxiety OTHER HISTORY: Positive Falls, Chemotherapy, Radiation Therapy and Cancer Surgical History SURGICAL: Positive Cardiac Surgery and Pacemaker Social History SMOKING STATUS: Never smoker SUBSTANCE USE: does not use Exam Vital Signs Temp Pulse Resp BP Pulse Ox O2 Del Method 98.7 F 63 18 126/60 96 Room Air 10/19/24 22:20 10/19/24 22:20 10/19/24 22:20 10/19/24 22:20 10/19/24 22:20 10/19/24 22:20 Narrative Exam Physical Exam General: Awake, generally weak and chronically ill-appearing, non-verbal. HEENT: Normocephalic, atraumatic, mucous membranes moist. Heart: Regular rate and rhythm, no murmurs. Lungs: Clear to auscultation with no wheezing or crackles. Abdomen: Soft, nondistended, nontender, positive bowel sounds. ?No guarding or rebound tenderness. Neurologic: Alert and oriented x0, no gross neurological deficit, and patient able to move all 4 extremities. Extremities: No edema. Skin: No rash or ecchymoses. Veinous port in the right sibclavicular area. Results: Labs 10/19/24 16:23 10/19/24 16:23 Labs: Short CBC 10/19/24 Range/Units 16:23 WBC 19.1 H (3.6-11.0) Thou/mm3 Hgb 11.5 L (12.0-16.0) g/dL Hct 34.1 L (36.0-46.0) % Plt Count 108 L (140-440) Thou/mm3 BMP 10/19/24 16:23 Sodium 129 L Potassium 2.7 L* Chloride 98 Carbon Dioxide 20.7 BUN 21 Creatinine 0.6 Glucose 113 H Calcium 7.8 L Liver Function 10/19/24 Range/Units 16:23 Total Bilirubin 1.0 (0.3-1.2) mg/dL Direct Bilirubin 0.5 H (0.0-0.3) mg/dL AST 130 H (0-34) U/L ALT 55 H (10-49) U/L Alkaline Phosphatase 95 (46-116) U/L Albumin 3.6 D (3.4-4.8) gm/dL Urine 10/19/24 Range/Units 16:42 Urine Color Cancelled Urine Clarity Cancelled Urine pH Cancelled Ur Specific [place] Cancelled Urine Protein Cancelled Urine Glucose (UA) Cancelled Quality Measures Quality Measures VTE prophylaxis Advance care planning discussed with:: other (niece) Medications Home Medications and Allergies Home Medications ?Medication ?Instructions ?Recorded ?Confirmed ?Type atorvastatin 20 mg tablet 20 mg PO HS 08/21/19 10/19/24 History benazepril 40 mg tablet 40 mg PO QDAY 08/21/19 10/19/24 History sertraline 25 mg tablet (Zoloft) 25 mg PO QDAY 02/13/20 10/19/24 History aspirin 81 mg tablet,delayed 81 mg PO QDAY 02/02/23 10/17/23 History release Held on 07/09/24. Instructions: Resume on 07/16/24. May resume on 07/16/24 linaclotide 290 mcg capsule 290 mcg PO DAILY 10/19/24 10/19/24 History (Linzess) morphine 30 mg tablet,extended 30 mg PO Q12H 10/19/24 10/19/24 History release oxybutynin chloride 5 mg 5 mg PO HS 10/19/24 10/19/24 History tablet,extended release 24 hr pantoprazole 40 mg tablet,delayed 40 mg PO .AM 10/19/24 10/19/24 History release Allergies Allergy/AdvReac Type Severity Reaction Status Date / Time No Known Allergies Allergy Verified 10/19/24 15:19 Visit Medications Acetaminophen (Acetaminophen 325 Mg Tablet) 650 mg PO Q6H PRN PRN Reason: Fever >100.3 or pain 1-3 Stop: 11/18/24 22:02 Sodium Chloride (Ns) 1,000 mls @ 75 mls/hr IV .[id number] [facility] Stop: 11/18/24 22:14 Last Admin: 10/19/24 22:12 Dose: 75 mls/hr Levofloxacin/Dextrose (Levaquin Ivpb) 750 mg in 150 mls @ 100 mls/hr IV QDAY [facility] Stop: 10/27/24 08:59 Ondansetron HCl (Ondansetron Inj 2 Mg/Ml Inj 2 Ml) 4 mg IV Q6H PRN; Protocol PRN Reason: NAUSEA OR VOMITING Stop: 11/18/24 22:02 Oxycodone/Acetaminophen (Oxycodone/Apap 5/325 Tablet) 1 tab PO Q6H PRN PRN Reason: PAIN SCALE 4-6 (Moderate Stop: 10/24/24 22:02 Discontinued Medications Sodium Chloride (Ns) 1,000 mls @ 999 mls/hr IV .Q1H1M ONE Stop: 10/19/24 17:03 Last Infusion: 10/19/24 18:00 Dose: Infused Potassium Chloride (Kcl Ivpb) 10 meq in 100 mls @ 100 mls/hr IV X1 ONE Stop: 10/19/24 18:43 Last Infusion: 10/19/24 19:57 Dose: Infused Ceftriaxone Sodium 1,000 mg/ (Sodium Chloride) 50 mls @ 100 mls/hr IV X1 ONE Stop: 10/19/24 19:38 Last Infusion: 10/19/24 20:21 Dose: Infused Acetaminophen (Ofirmev Inj) 1,000 mg in 100 mls @ 250 mls/hr IV Q6HR DARLENE Stop: 10/20/24 18:23 Acetaminophen (Ofirmev Inj) 1,000 mg in 100 mls @ 250 mls/hr IV X1 ONE Stop: 10/19/24 19:57 Last Infusion: 10/19/24 20:20 Dose: Infused Azithromycin 500 mg/ Sodium (Chloride) 250 mls @ 250 mls/hr IV X1 ONE Stop: 10/19/24 22:03 Last Admin: 10/19/24 21:33 Dose: 250 mls/hr Ketorolac Tromethamine (Ketorolac Inj 30 Mg/Ml Vial) 15 mg IVP X1 ONE Stop: 10/19/24 19:28 Last Admin: 10/19/24 19:46 Dose: 15 mg Ondansetron HCl (Ondansetron Inj 2 Mg/Ml Inj 2 Ml) 4 mg IV X1 ONE; Protocol Stop: 10/19/24 19:10 Last Admin: 10/19/24 19:45 Dose: 4 mg Potassium Chloride (Potassium Chloride 20 Meq Tabcr) 40 meq PO X1 ONE Stop: 10/19/24 17:45 Last Admin: 10/19/24 18:51 Dose: 40 meq Potassium Chloride (Potassium Chloride 10% 20 Meq/15 Ml Udc) 40 meq PO X1 ONE Stop: 10/19/24 18:09 Last Admin: 10/19/24 18:52 Dose: 40 meq Assessment & Plan Plan The patient is a 74-year-old female with a previous medical history of developmental delay with disability, hypertension, barycardia s/p pacemaker implantation, multiple myeloma on chemotherapy, anxiety who was brought in by her niece on 10/19/24 due to general weakness and watery diarrhea tinged with blood. #Sepsis, 2/2 #Acute infectious diarrhea #General weakness qSOFA score is 1. SIRS criteria 2/4. Patient is immunocompromised due to history of multiple myeloma and chemotherapy and has been having watery diarrhea with blood for a week. Patient has received 1L of fliuds in the ED. Plan: - sepsis bolus 30 ml/kg - normal saline maintenance fluids 75 ml/hr - stool cultures, C. difficile PCR and toxins ordered - stool WBCs ordered - Plasma CMV DNA viral load ordered - Giardia antigen, Norovirus ordered - Levaquin 750 mg qday starting 10/20/2024 - f/u blood cultures - FOBT - acetaminophen for fever and pain - TEO diet #CAP Patient has been having cough. CT showed left base pneumonia. Plan: - Levaquin 750 mg qday #Hypokalemia #Hypocalcemia In the setting of GI loss. Initial potassium 2.7. Plan: - potassium check after replenishing - monitor daily CMP - replete as necessary #Elevated transaminases Most likely in the setting of acute infection. Plan: - monitor daily CMP #Hypertension #History of bradycardia, s/p pacemaker placement Plan: - home medications on hold due to normal blood pressure #Hyperlipidemia Plan: - home atorvastatin on hold due to elevated transaminases #Anemia #Thrombocytopenia Most likely in the setting of multiple myeloma. PLT 108, Hgb 11.5. Plan: - monitor daily CBC - transfuse if Hgb <7 #Multiple myeloma Patient has received multiple courses of chemotherapy and is following up with Dr. Edward. Plan: - continue following up outpatient Health maintenance: FEN: TEO diet DVT prophylaxis: SCDs GI prophylaxis: pantoprazole 40 qday Dispo: med tele CODE STATUS: Full code Plan of care discussed with attending Dr. Ga. Val Yeh MD, PGY 1. Attending Provider Attestation/Addendum I have examined the patient, reviewed labs and imaging findings, discussed the case with the resident(s), and reviewed entered orders. I agree with the plan of care as outlined in this note, with these additional summaries/recommendations: Patient is a 74-year-old female with a medical history of RISS stage III kappa light chain multiple myeloma on chemotherapy at [facility] cancer treatment center at [facility], primary hypertension, hyperlipidemia, GERD, depression, and urinary incontinence who presents to [facility] emergency department on 10/19/2024 with chief complaints of diarrhea and cough. Patient and family member seen at bedside. Patient is alert and following commands although not providing any history. History obtained from family member at bedside. Per family member patient has had acute diarrhea, which is blood tinged and productive cough for multiple days. On admission Tmax 102 Fahrenheit, leukocytosis with WBC count 19.1, Pro-Ruddy 2.49, and lactic acid 2.1. Patient is immunocompromised given chemotherapy and MM. Patient diagnosed with acute infectious bloody diarrhea. Suspect this to be secondary to infectious etiologies including bacterial, viral, and protozoal. Less likely etiology is medication related. We will order stool culture. Order stool O&P, C. difficile toxin, ESR, CRP, stool WBC. We will check with lab if we can order CMV to rule out CMV colitis. Patient has benign abdominal examine. Patient started on IV hydration, replete potassium as needed, bland low-fat diet with limited dairy products, and loperamide can be considered if infectious causes ruled out. Patient was also noted to have prominent pneumonia left base and per family member patient has had productive cough. We will start patient on fluoroquinolone for time being to cover respiratory and GI infections. Hypokalemia present on CHEM panel and replacement given in the ED. Repeat potassium in AM. Hold home Linzess. We will resume other home medications as able. Patient will need to follow-up with oncology outpatient for multiple myeloma. If no improvement we will consider contacting patient's oncologist. Blood cultures taken in the ED, F/U when available. Minimal transaminitis present and monitor for now. Avoid hepatotoxic agents. Hypocalcemia on CHEM panel and replacement given. Patient and family member updated at bedside. All questions answered to satisfaction. Please see residents note for additional details and management. Dr. Harmeet MD
[2024-10-19] MEDS: SODIUM CHLORIDE 0.9% 500 ML 500 ML IV (23:28)
[2024-10-20] VITALS (11 sets, daily range): BP systolic 140–173; BP diastolic 61–89; PULSE 60–80; RESP 16–97; TEMP 36.2–36.5; O2SAT 96–98; BMI 15.5
[2024-10-20 00:07] LABS: Phosphorous 1.4 mg/dL (2.4-5.1); Potassium 3.5 mMol/L (3.4-5.1)
[2024-10-20] MEDS: CALCIUM CARBONATE 600 MG TABLET PO (01:40)
[2024-10-20 04:45] LABS: Stool for WBCs Negative (Negative)
[2024-10-20 05:43] LABS: Basophils % (Auto) 0 % (0-2.5); Eosinophils # (Auto) 0.1 Thou/mm3 (0.0-0.5); Eosinophils % (Auto) 1 % (0-10); Hematocrit 28.8 % (36.0-46.0); Hemoglobin 9.7 g/dL (12.0-16.0); Immature Granulocytes % (Auto) 5 % (0-0); Immature Granulocytes Auto 0.57 Thou/mm3 (0.00-0.00); Lymphocytes # (Auto) 0.3 Thou/mm3 (1.0-4.8); Lymphocytes % (Auto) 2 % (10-50); Mean Corpuscular HGB Conc 33.7 g/dl (31.0-37.0); Mean Corpuscular Hemoglobin 25.7 pg (25.0-35.0); Mean Corpuscular Volume 76 fL (80-100); Monocytes # (Auto) 0.8 Thou/mm3 (0.0-0.8); Monocytes % (Auto) 7 % (0-12); Neutrophils # (Auto) 10.2 Thou/mm3 (1.8-7.7); Neutrophils % (Auto) 86 % (37-80); Nucleated Red Blood Cell % 0 /100 WBC (0); Platelet Count 81 Thou/mm3 (140-440); RDW Standard Deviation 49.3 fL (36.4-46.3); Red Blood Count 3.77 Miln/mm3 (4.00-5.20); White Blood Count 11.9 Thou/mm3 (3.6-11.0)
[2024-10-20 06:32] LABS: Alanine Aminotransferase 50 U/L (10-49); Albumin, Serum 3.1 gm/dL (3.4-4.8); Albumin/Globulin Ratio 1.7 (1.2-2.2); Alkaline Phosphatase 82 U/L (46-116); Anion Gap 8 (7-16); Aspartate Amino Transferase 117 U/L (0-34); BUN/Creatinine Ratio 43 Ratio (12-20); Bilirubin,Total 0.5 mg/dL (0.3-1.2); Blood Urea Nitrogen 17 mg/dL (9-23); Calcium 7.7 mg/dL (8.3-10.6); Calcium (Corrected) 8.4 mg/dL (8.5-10.1); Carbon Dioxide 19.5 mMol/L (20.0-31.0); Chloride 110 mMol/L (98-107); Creatinine (Component) 0.4 mg/dL (0.6-1.3); Estimated Creatinine Clearance 66.8 mL/min (>60); Globulin 1.8 gm/dL (2.3-3.5); Glucose 101 mg/dL (74-106); Magnesium 2.3 mg/dL (1.6-2.6); Osmolality,Calculated 275 (275-295); Phosphorous 1.4 mg/dL (2.4-5.1); Potassium 3.3 mMol/L (3.4-5.1); Sodium 137 mMol/L (136-145); Total Protein 4.9 gm/dL (5.7-8.2); eGFR > 60 See Note
[2024-10-20] MEDS: LEVOFLOXACIN/D5W 750MG IVPB 750 MG/150 ML BAG 100 MG IV (08:31)
[2024-10-20] MEDS: SERTRALINE HCL 25 MG TABLET PO (08:31)
[2024-10-20] MEDS: PANTOPRAZOLE INJ 40 MG VIAL IV (08:31)
[2024-10-20] MEDS: NAPH,KPH MBDB 1 PACKET (1.5 GM) PO (08:45)
[2024-10-20] MEDS: POTASSIUM CHLORIDE 20 mEq TABCR 40 MEQ PO (08:45)
[2024-10-20] MEDS: LOSARTAN POTASSIUM 25 MG TABLET 50 MG PO (08:47)
[2024-10-20] MEDS: metroNIDAZOLE/NS 500 MG IVPB 500 MG/100 ML BAG 200 MG IV ×2 (11:24→21:45)
[2024-10-20] MEDS: SODIUM CHLORIDE 0.9% 1000 ML 1,000 ML 75 ML IV (11:24)
--- NOTE | 2024-10-20 12:56 | ESPR_ITS ---
<Statement entered by Dhaval Keating MD - 10/20/24 18:42> Patient seen and assessed at bedside. Patient nonverbal and denying any pain. Will continue on IV antibiotics and awaiting stool cultures, C. difficile negative. Will replete electrolytes and follow-up on cultures. Case discussed with team. Dhaval Keating MD PGY3 Documentation for date of: 10/20/24 Subjective Subjective Interval history: Patient is seen and examined at bedside Patient is able to answer questions as yes or no but not able to maintain a conversation Denies shortness of breath, abdominal pain, fever Vitals are stable except for mildly elevated blood pressures. Physical examination remained unremarkable Labs showed downtrending WBC, hypokalemia, mild metabolic acidosis, hypophosphatemia 40 mill equivalents of oral potassium and 1 packet of Neutra-Phos is given Still pending stool studies and C. difficile Will continue levofloxacin and patient was started on metronidazole, Ringer lactate at 75 mL/h Exam Vital Signs Temp Pulse Resp BP Pulse Ox O2 Del Method 97.2 F 66 16 156/74 H 98 Room Air 10/20/24 12:00 10/20/24 12:00 10/20/24 12:00 10/20/24 12:00 10/20/24 12:00 10/20/24 12:00 Narrative Exam General: Awake. Noted Chemo-Port. Appears dehydrated HEENT: Normocephalic, atraumatic, mucous membranes moist. Heart: Regular rate and rhythm, no murmurs. Lungs: Clear to auscultation with no wheezing or crackles. Abdomen: Soft, nondistended, nontender, positive bowel sounds. ?No guarding or rebound tenderness. Neurologic: At her baseline, no gross neurological deficit, and patient able to move all 4 extremities. Extremities: No edema. Skin: No rash or ecchymoses. Objective Labs 10/21/24 05:26 10/21/24 05:26 Labs: Laboratory Results - last 24 hr 10/19/24 10/19/24 10/19/24 16:23 16:42 21:07 WBC 19.1 H RBC 4.47 Hgb 11.5 L Hct 34.1 L MCV 76 L MCH 25.7 MCHC 33.7 RDW Std Deviation 48.6 H Plt Count 108 L Neut % (Auto) 85 H Lymph % (Auto) 2 L [place] % (Auto) 7 Eos % (Auto) 1 Baso % (Auto) 0 Neut # (Auto) 16.2 H Lymph # (Auto) 0.5 L [place] # (Auto) 1.3 H Eos # (Auto) 0.2 Baso # (Auto) 0.1 Immature Gran # (Auto) 0.94 H Absolute Nucleated RBC 0.00 Immature Gran % 5 H Nucleated RBC % 0 ESR 122 H PT 11.4 INR 1.0 APTT 24.3 Sodium 129 L Potassium 2.7 L* Chloride 98 Carbon Dioxide 20.7 Anion Gap 10 BUN 21 Creatinine 0.6 Estim Creat Clear Calc 55.3 L eGFR > 60 BUN/Creatinine Ratio 35 H Glucose 113 H Calculated Osmolality 262 L Lactic Acid 2.1 H 1.4 Calcium 7.8 L Corrected Calcium 8.1 L Phosphorus Magnesium 2.5 Total Bilirubin 1.0 Direct Bilirubin 0.5 H AST 130 H ALT 55 H Alkaline Phosphatase 95 C-Reactive Prot, Quant 24.2 H Total Protein 5.3 L Albumin 3.6 D Globulin 1.7 L Albumin/Globulin Ratio 2.1 Amylase 45 Lipase 50 Procalcitonin 2.49 H TSH 0.49 L Free T4 1.17 Ur Collection Type Cancelled Urine Color Cancelled Urine Clarity Cancelled Urine pH Cancelled Ur Specific [place] Cancelled Urine Protein Cancelled Urine Glucose (UA) Cancelled Urine Ketones Cancelled Urine Blood Cancelled Urine Nitrite Cancelled Urine Bilirubin Cancelled Urine Urobilinogen (Auto) Cancelled Ur Leukocyte Esterase Cancelled Urine RBC Cancelled Urine WBC Cancelled Ur Squamous Epith Cells Cancelled Ur Transition Epith Cell Cancelled Ur Renal Epithelial Cell Cancelled Calcium Carbonate Cryst Cancelled Calcium Phosphate Cryst Cancelled Calcium Oxalate Crystal Cancelled Leucine Crystals Cancelled Cystine Crystals Cancelled Uric Acid Crystals Cancelled Triple Phos Crystals Cancelled Tyrosine Crystals Cancelled Amorphous Crystals Cancelled Urine Bacteria Cancelled Cellular Casts Cancelled Epithelial Casts Cancelled Fatty Casts Cancelled Hyaline Casts Cancelled Granular Casts Cancelled Waxy Casts Cancelled Broad Casts Cancelled RBC Casts Cancelled Urine Mucus Cancelled Urine Trichomonas Cancelled Ur Yeast w Hyphae Cancelled Urine Yeast (Budding) Cancelled Urine Sperm Cancelled Ur Oval Fat Bodies Cancelled Stool for White Cells 10/19/24 10/20/24 10/20/24 23:35 01:05 04:46 WBC 11.9 H D RBC 3.77 L Hgb 9.7 L Hct 28.8 L MCV 76 L MCH 25.7 MCHC 33.7 RDW Std Deviation 49.3 H Plt Count 81 L D Neut % (Auto) 86 H Lymph % (Auto) 2 L [place] % (Auto) 7 Eos % (Auto) 1 Baso % (Auto) 0 Neut # (Auto) 10.2 H Lymph # (Auto) 0.3 L [place] # (Auto) 0.8 Eos # (Auto) 0.1 Baso # (Auto) 0.0 Immature Gran # (Auto) 0.57 H Absolute Nucleated RBC 0.00 Immature Gran % 5 H Nucleated RBC % 0 ESR PT INR APTT Sodium 137 Potassium 3.5 D 3.3 L Chloride 110 H Carbon Dioxide 19.5 L Anion Gap 8 BUN 17 Creatinine 0.4 L Estim Creat Clear Calc 66.8 eGFR > 60 BUN/Creatinine Ratio 43 H Glucose 101 Calculated Osmolality 275 Lactic Acid Calcium 7.7 L Corrected Calcium 8.4 L Phosphorus 1.4 L 1.4 L Magnesium 2.3 Total Bilirubin 0.5 D Direct Bilirubin AST 117 H ALT 50 H Alkaline Phosphatase 82 C-Reactive Prot, Quant Total Protein 4.9 L Albumin 3.1 L D Globulin 1.8 L Albumin/Globulin Ratio 1.7 Amylase Lipase Procalcitonin TSH Free T4 Ur Collection Type Urine Color Urine Clarity Urine pH Ur Specific [place] Urine Protein Urine Glucose (UA) Urine Ketones Urine Blood Urine Nitrite Urine Bilirubin Urine Urobilinogen (Auto) Ur Leukocyte Esterase Urine RBC Urine WBC Ur Squamous Epith Cells Ur Transition Epith Cell Ur Renal Epithelial Cell Calcium Carbonate Cryst Calcium Phosphate Cryst Calcium Oxalate Crystal Leucine Crystals Cystine Crystals Uric Acid Crystals Triple Phos Crystals Tyrosine Crystals Amorphous Crystals Urine Bacteria Cellular Casts Epithelial Casts Fatty Casts Hyaline Casts Granular Casts Waxy Casts Broad Casts RBC Casts Urine Mucus Urine Trichomonas Ur Yeast w Hyphae Urine Yeast (Budding) Urine Sperm Ur Oval Fat Bodies Stool for White Cells Negative Quality Measures Quality Measures VTE prophylaxis Advance care planning discussed with:: legal surragate Assessment & Plan Assessment Current Active Medications: Generic Name Dose Route Start Last Admin Trade Name Freq PRN Reason Stop Dose Admin Acetaminophen 650 mg 10/19/24 22:03 Acetaminophen 325 Mg Tablet PO 11/18/24 22:02 Q6H PRN Fever >100.3 or pain 1-3 Sodium Chloride 1,000 mls @ 75 mls/hr 10/19/24 22:15 10/20/24 11:24 Ns IV 11/18/24 22:14 75 mls/hr .[id number] DARLENE Administration Levofloxacin/Dextrose 750 mg in 150 mls @ 100 mls/hr 10/20/24 09:00 10/20/24 08:31 Levaquin Ivpb IV 10/27/24 08:59 100 mls/hr QDAY DARLENE Administration Metronidazole 500 mg in 100 mls @ 200 mls/hr 10/20/24 10:06 10/20/24 11:24 Flagyl 500 Mg Iv IV 10/27/24 10:05 200 mls/hr Q8HR DARLENE Administration Losartan Potassium 50 mg 10/20/24 09:00 10/20/24 08:47 Losartan Potassium 25 Mg Tablet PO 11/19/24 08:59 50 mg QDAY DARLENE Administration Ondansetron HCl 4 mg 10/19/24 22:03 Ondansetron Inj 2 Mg/Ml Inj 2 Ml IV 11/18/24 22:02 Q6H PRN NAUSEA OR VOMITING Protocol Oxycodone/Acetaminophen 1 tab 10/19/24 22:03 Oxycodone/Apap 5/325 Tablet PO 10/24/24 22:02 Q6H PRN PAIN SCALE 4-6 (Moderate Pantoprazole Sodium 40 mg 10/20/24 09:00 10/20/24 08:31 Pantoprazole Inj 40 Mg Vial IV 11/19/24 08:59 40 mg QDAY DARLENE Administration Sertraline HCl 25 mg 10/20/24 09:00 10/20/24 08:31 Sertraline Hcl 25 Mg Tablet PO 11/19/24 08:59 25 mg QDAY DARLENE Administration Plan The patient is a 74-year-old female with a previous medical history of developmental delay with disability, hypertension, barycardia s/p pacemaker implantation, multiple myeloma on chemotherapy, anxiety who was brought in by her niece on 10/19/24 due to general weakness and watery diarrhea tinged with blood. #Sepsis, 2/2 #Acute gastroenteritis #Generalised weakness qSOFA score is 1. SIRS criteria 2/4. Patient is immunocompromised due to history of multiple myeloma and chemotherapy and has been having watery diarrhea with blood for a week. Patient has received 1L of fliuds in the ED. - stool cultures, C. difficile PCR and toxins ordered - stool WBCs ordered - Plasma CMV DNA viral load ordered - Giardia antigen, Norovirus ordered Plan: - Started on levofloxacin 750 Mg IV daily and metronidazole 500 Mg IV every 8 hourly [10/20- - Encouraged to take plenty of oral fluids - Started on Ringer's lactate, 75 mL/h # Left lower lobe infiltrate -Patient does not have any history of cough, shortness of breath, increased oxygen needs - On physical examination, bilateral air entry noted Plan - Started on levofloxacin 750 Mg IV daily #Hypokalemia # Hypophosphatemia In the setting of GI loss and poor oral intake. Initial potassium 2.7. Potassium as of 10/20/2024 is 3.3 Plan: - 40 mEq of oral potassium is given - A dose of Neutra-Phos packet is given -Will monitor electrolytes and replete as needed # Transaminitis, resolving Most likely in the setting of acute infection. Plan: - Will monitor liver function tests #Hypertension #History of bradycardia, s/p pacemaker placement Patient is using benazepril 40 Mg p.o. daily at home Plan: -Started on losartan 50 Mg p.o. daily - Will monitor blood pressures and titrate medications accordingly #Hyperlipidemia Plan: - home atorvastatin on hold due to elevated transaminases #Anemia #Thrombocytopenia Most likely in the setting of multiple myeloma. PLT 108, Hgb 11.5. Plan: - monitor daily CBC - transfuse if Hgb <7 #Multiple myeloma Patient has received multiple courses of chemotherapy and is following up with Dr. Edward. Plan: - continue following up outpatient Health maintenance: FEN: TEO diet DVT prophylaxis: SCDs GI prophylaxis: pantoprazole 40 qday Dispo: med tele CODE STATUS: Full code Patient plan of care was discussed with the attending physician, Dr. Greenfield and senior resident Dr. Rishabh Mcdonald, PGY1 Attending Provider Attestation/Addendum Vivien, Alaina Greenfield DO, attest that I was physically present for the nagel portions of the service and evaluated the patient with the resident and I reviewed and discussed the case with the resident and agree with the resident's findings and plans of care as documented above Patient seen and evaluated this AM. Antonio at bedside. Patient is verbal and ambulatory at baseline. however, patient has been less interactive and has had worsening genealized weakness for the past week. She has had decreased appetite as well. Patient appears tearful and in some discomfort, but unable to verbalize where her source of discomfort was comfing from. Patient has had several bouts of diarrhea at home, last appearing to be bloody per niece. Abdomen is soft and nondistended. Will cover with IV abx for infectious colitis and pending stool studies. Patient had been referred by oncologist to f/u in [place] with specialist for multiple myeloma. Will continue with IV fluids at this time due to GI losses and decreased appetite.
--- NOTE | 2024-10-20 15:50 | PC.SS ---
SS met with patient?s yoins Crespo and patient at bedside. Cherie explained patient resides with her. Cherie confirmed she is patient?s surrogate medical decisionmaker [phone]. Cherie confirmed patient?s demographics. Cherie explained patient requires some assistance with ADLs. Patient has 3 walkers, FWW, rollator, and four point walker. Per Cherie, patient refuses to use DME to ambulate. Patient also owns hospital bed and shower chair. Pharmacy: [facility]. PCP: Dr. Winter, Dr. Orr, and Dr. Hansen. Next of kin: Yonis Miguel [phone] Discharge plan: Home, yonis Crespo to transport.
[2024-10-20 16:02] LABS: Clostridium Difficile PCR Negative (Negative)
[2024-10-20] MEDS: RINGERS LACTATED 1000 ML 1,000 ML 75 ML IV (18:30)
[2024-10-20] MEDS: OXYBUTYNIN CHLOR XL 5 MG TABER PO (21:44)
[2024-10-20] MEDS: LACTOBACILLUS RHAMNOSUS 1 CAP PO (21:44)
[2024-10-21] VITALS (9 sets, daily range): BP systolic 132–159; BP diastolic 55–73; PULSE 58–82; RESP 14–99; TEMP 35.6–37.3; O2SAT 96–98; BMI 17.5
[2024-10-21] MEDS: metroNIDAZOLE/NS 500 MG IVPB 500 MG/100 ML BAG 200 MG IV ×3 (05:04→21:14)
[2024-10-21 06:22] LABS: Basophils % (Auto) 0 % (0-2.5); Eosinophils # (Auto) 0.2 Thou/mm3 (0.0-0.5); Eosinophils % (Auto) 2 % (0-10); Hematocrit 27.3 % (36.0-46.0); Immature Granulocytes % (Auto) 4 % (0-0); Immature Granulocytes Auto 0.39 Thou/mm3 (0.00-0.00); Lymphocytes # (Auto) 0.3 Thou/mm3 (1.0-4.8); Lymphocytes % (Auto) 4 % (10-50); Mean Corpuscular Hemoglobin 25.1 pg (25.0-35.0); Mean Corpuscular Volume 76 fL (80-100); Monocytes # (Auto) 0.7 Thou/mm3 (0.0-0.8); Monocytes % (Auto) 8 % (0-12); Neutrophils # (Auto) 7.5 Thou/mm3 (1.8-7.7); Neutrophils % (Auto) 82 % (37-80); Nucleated Red Blood Cell % 0 /100 WBC (0); Platelet Count 124 Thou/mm3 (140-440); RDW Standard Deviation 49.2 fL (36.4-46.3); Red Blood Count 3.59 Miln/mm3 (4.00-5.20); White Blood Count 9.1 Thou/mm3 (3.6-11.0)
[2024-10-21] MEDS: ACETAMINOPHEN 325 MG TABLET 650 MG PO (06:26)
[2024-10-21 06:45] LABS: Alanine Aminotransferase 43 U/L (10-49); Albumin, Serum 2.9 gm/dL (3.4-4.8); Albumin/Globulin Ratio 1.8 (1.2-2.2); Alkaline Phosphatase 77 U/L (46-116); Anion Gap 7 (7-16); Aspartate Amino Transferase 72 U/L (0-34); BUN/Creatinine Ratio 30 Ratio (12-20); Bilirubin,Total 0.5 mg/dL (0.3-1.2); Blood Urea Nitrogen 12 mg/dL (9-23); Calcium 7.4 mg/dL (8.3-10.6); Calcium (Corrected) 8.3 mg/dL (8.5-10.1); Carbon Dioxide 20.9 mMol/L (20.0-31.0); Chloride 103 mMol/L (98-107); Creatinine (Component) 0.4 mg/dL (0.6-1.3); Estimated Creatinine Clearance 66.8 mL/min (>60); Globulin 1.6 gm/dL (2.3-3.5); Glucose 94 mg/dL (74-106); Magnesium 1.8 mg/dL (1.6-2.6); Osmolality,Calculated 262 (275-295); Phosphorous 1.2 mg/dL (2.4-5.1); Potassium 3.1 mMol/L (3.4-5.1); Sodium 131 mMol/L (136-145); Total Protein 4.5 gm/dL (5.7-8.2); eGFR > 60 See Note
[2024-10-21] MEDS: PANTOPRAZOLE INJ 40 MG VIAL IV (09:06)
[2024-10-21] MEDS: LACTOBACILLUS RHAMNOSUS 1 CAP PO ×2 (09:06→20:11)
[2024-10-21] MEDS: LOSARTAN POTASSIUM 25 MG TABLET 50 MG PO (09:07)
[2024-10-21] MEDS: POTASSIUM CHLORIDE 20 mEq TABCR 40 MEQ PO (09:07)
[2024-10-21] MEDS: SERTRALINE HCL 25 MG TABLET PO (09:07)
[2024-10-21] MEDS: LEVOFLOXACIN/D5W 750MG IVPB 750 MG/150 ML BAG 100 MG IV (09:07)
[2024-10-21 09:12] LABS: Vitamin D 25 Hydroxy Total 6.5 ng/mL (7.3-40.2)
--- NOTE | 2024-10-21 10:23 | PC.SS ---
SS follow up note; C Diff negative. Patient is currently on IV ABX for Colitis. Patient will return back home when medically cleared.
[2024-10-21] MEDS: CALCIUM CARBONATE 600 MG TABLET PO (10:32)
[2024-10-21] MEDS: Magnesium Sulfate 2 GM Ivpb 2 GM/50 ML BAG IV (10:32)
[2024-10-21] MEDS: POT PHOS 15 mMol in NS 250 ML 15 MMOL/250 ML BAG 62.5 MMOL IV ×2 (10:32→14:02)
--- NOTE | 2024-10-21 17:32 | ESPR_ITS ---
<Statement entered by Dhaval Keating MD - 10/22/24 07:44> Patient seen and assessed at bedside. Patient C. difficile negative and stool WBCs negative. Will continue to monitor patient and advance diet as tolerated. Pending final cultures to narrow antibiotics. Case discussed with team. Dhaval Keating MD PGY3 Documentation for date of: 10/21/24 Subjective Subjective Interval history: Patient is seen and examined at bedside No acute overnight events. Patient appears at her baseline today and is able to answer all questions appropriately Vitals are stable. No further episodes of diarrhea but blood tinge is noted Labs showed hemoglobin 9 which is downtrending since the time of admission, will monitor a.m. CBC tomorrow and if needed will consult GI Will continue antibiotics for now and monitor 40 mill equivalents of oral potassium, IV potassium phosphate is given Exam Vital Signs Temp Pulse Resp BP Pulse Ox O2 Del Method 98.5 F 82 20 132/69 H 96 Room Air 10/21/24 16:00 10/21/24 16:00 10/21/24 16:00 10/21/24 16:00 10/21/24 16:00 10/21/24 16:00 Narrative Exam General: Awake. Noted Chemo-Port. HEENT: Normocephalic, atraumatic, mucous membranes moist. Heart: Regular rate and rhythm, no murmurs. Lungs: Clear to auscultation with no wheezing or crackles. Abdomen: Soft, nondistended, nontender, positive bowel sounds. ?No guarding or rebound tenderness. Neurologic: At her baseline, no gross neurological deficit, and patient able to move all 4 extremities. Extremities: No edema. Skin: No rash or ecchymoses. Objective Labs 10/22/24 05:31 10/22/24 05:31 Labs: Laboratory Results - last 24 hr 10/21/24 10/21/24 05:16 05:26 WBC 9.1 RBC 3.59 L Hgb 9.0 L Hct 27.3 L MCV 76 L MCH 25.1 MCHC 33.0 RDW Std Deviation 49.2 H Plt Count 124 L D Neut % (Auto) 82 H Lymph % (Auto) 4 L [place] % (Auto) 8 Eos % (Auto) 2 Baso % (Auto) 0 Neut # (Auto) 7.5 Lymph # (Auto) 0.3 L [place] # (Auto) 0.7 Eos # (Auto) 0.2 Baso # (Auto) 0.0 Immature Gran # (Auto) 0.39 H Absolute Nucleated RBC 0.00 Immature Gran % 4 H Nucleated RBC % 0 Sodium 131 L Potassium 3.1 L Chloride 103 Carbon Dioxide 20.9 Anion Gap 7 BUN 12 Creatinine 0.4 L Estim Creat Clear Calc 66.8 eGFR > 60 BUN/Creatinine Ratio 30 H Glucose 94 Calculated Osmolality 262 L Calcium 7.4 L Corrected Calcium 8.3 L Phosphorus 1.2 L Magnesium 1.8 Total Bilirubin 0.5 AST 72 H ALT 43 Alkaline Phosphatase 77 Total Protein 4.5 L Albumin 2.9 L Globulin 1.6 L Albumin/Globulin Ratio 1.8 25-OH Vitamin D Total 6.5 L Quality Measures Quality Measures VTE prophylaxis Advance care planning discussed with:: patient Assessment & Plan Assessment Current Active Medications: Generic Name Dose Route Start Last Admin Trade Name Freq PRN Reason Stop Dose Admin Acetaminophen 650 mg 10/19/24 22:03 10/21/24 06:26 Acetaminophen 325 Mg Tablet PO 11/18/24 22:02 650 mg Q6H PRN Administration Fever >100.3 or pain 1-3 Calcium Carbonate 600 mg 10/21/24 09:15 10/21/24 10:32 Calcium Carbonate 600 Mg Tablet PO 11/20/24 09:14 600 mg QDAY DARLENE Administration Levofloxacin/Dextrose 750 mg in 150 mls @ 100 mls/hr 10/20/24 09:00 10/21/24 09:07 Levaquin Ivpb IV 10/27/24 08:59 100 mls/hr QDAY DARLENE Administration Metronidazole 500 mg in 100 mls @ 200 mls/hr 10/20/24 10:06 10/21/24 14:02 Flagyl 500 Mg Iv IV 10/27/24 10:05 200 mls/hr Q8HR DARLENE Administration Lactobacillus Rhamnosus 1 cap 10/20/24 21:00 10/21/24 09:06 Lactobacillus Rhamnosus 1 Cap PO 11/19/24 20:59 1 cap BID DARLENE Administration Losartan Potassium 50 mg 10/20/24 09:00 10/21/24 09:07 Losartan Potassium 25 Mg Tablet PO 11/19/24 08:59 50 mg QDAY DARLENE Administration Ondansetron HCl 4 mg 10/19/24 22:03 Ondansetron Inj 2 Mg/Ml Inj 2 Ml IV 11/18/24 22:02 Q6H PRN NAUSEA OR VOMITING Protocol Oxybutynin Chloride 5 mg 10/20/24 21:00 10/20/24 21:44 Oxybutynin Chlor Xl 5 Mg Chaitanya PO 11/19/24 20:59 5 mg HS DARLENE Administration Oxycodone/Acetaminophen 1 tab 10/19/24 22:03 Oxycodone/Apap 5/325 Tablet PO 10/24/24 22:02 Q6H PRN PAIN SCALE 4-6 (Moderate Pantoprazole Sodium 40 mg 10/20/24 09:00 10/21/24 09:06 Pantoprazole Inj 40 Mg Vial IV 11/19/24 08:59 40 mg QDAY DARLENE Administration Sertraline HCl 25 mg 10/20/24 09:00 10/21/24 09:07 Sertraline Hcl 25 Mg Tablet PO 11/19/24 08:59 25 mg QDAY DARLENE Administration Plan The patient is a 74-year-old female with a previous medical history of developmental delay with disability, hypertension, barycardia s/p pacemaker implantation, multiple myeloma on chemotherapy, anxiety who was brought in by her niece on 10/19/24 due to general weakness and watery diarrhea tinged with blood. #Sepsis, resolved #2/2 Acute gastroenteritis #Generalised weakness qSOFA score is 1. SIRS criteria 2/4. Patient is immunocompromised due to history of multiple myeloma and chemotherapy and has been having watery diarrhea with blood for a week. Patient has received 1L of fliuds in the ED. - stool cultures ordered. C. difficile PCR and toxins ordered, came back negative - stool WBCs ordered, came back negative - Plasma CMV DNA viral load ordered - Giardia antigen, Norovirus ordered Plan: - Started on levofloxacin 750 Mg IV daily and metronidazole 500 Mg IV every 8 hourly [10/20- - Encouraged to take plenty of oral fluids # Left lower lobe infiltrate -Patient does not have any history of cough, shortness of breath, increased oxygen needs - On physical examination, bilateral air entry noted Plan - Started on levofloxacin 750 Mg IV daily #Hypokalemia # Hypophosphatemia In the setting of GI loss and poor oral intake. Initial potassium 2.7. As of 10/21/2024, potassium is 3.1, phosphorus is 1.2 Plan: - 40 mEq of oral potassium is given - IV potassium and phosphate is given - Will monitor electrolytes and replete as needed # Transaminitis, resolving Most likely in the setting of acute infection. Plan: - Will monitor liver function tests #Hypertension #History of bradycardia, s/p pacemaker placement Patient is using benazepril 40 Mg p.o. daily at home Plan: -Started on losartan 50 Mg p.o. daily - Will monitor blood pressures and titrate medications accordingly #Hyperlipidemia Plan: - home atorvastatin on hold due to elevated transaminases #Anemia #Thrombocytopenia Most likely in the setting of multiple myeloma. PLT 108, Hgb 11.5. Plan: - monitor daily CBC - transfuse if Hgb <7 #Multiple myeloma Patient has received multiple courses of chemotherapy and is following up with Dr. Edward. Plan: - continue following up outpatient Health maintenance: FEN: low salt DVT prophylaxis: SCDs GI prophylaxis: pantoprazole 40 qday Dispo: med tele CODE STATUS: Full code Patient plan of care was discussed with the attending physician, Dr. Greenfield and senior resident Dr. Rishabh Mcdonald, PGY1 Attending Provider Attestation/Addendum Vivien, Alaina Greenfield, DO, attest that I was physically present for the nagel portions of the service and evaluated the patient with the resident and I reviewed and discussed the case with the resident and agree with the resident's findings and plans of care as documented above Patient seen and evaluated this Am. She reports feeling improved and is much more interactive. No further episodes of diarrhea. Patient able to tolerate some diet, but no appetite. Leukocytosis improving. H/H remains stable, no reports of hematochezia or melena throughout hospitalization. Will order FOBT. However, patient has not had a BM. If H/H remains stable in AM, anticipate DC within 24h. If patient found to have positive FOBT or drop in H/H, will consider GI consult.
[2024-10-21] MEDS: OXYBUTYNIN CHLOR XL 5 MG TABER PO (20:11)
[2024-10-22] VITALS: BP 157/66; PULSE 65; PULSE 74; RESP 19; TEMP 36.6; O2SAT 95
[2024-10-22 04:00] VITALS: BP 146/96; PULSE 68; PULSE 81; RESP 21; TEMP 36.9; O2SAT 97
[2024-10-22] MEDS: metroNIDAZOLE/NS 500 MG IVPB 500 MG/100 ML BAG 200 MG IV ×2 (05:00→14:13)
[2024-10-22 06:59] LABS: Basophils % (Auto) 1 % (0-2.5); Eosinophils # (Auto) 0.1 Thou/mm3 (0.0-0.5); Eosinophils % (Auto) 2 % (0-10); Hematocrit 27.5 % (36.0-46.0); Hemoglobin 9.6 g/dL (12.0-16.0); Immature Granulocytes % (Auto) 6 % (0-0); Immature Granulocytes Auto 0.38 Thou/mm3 (0.00-0.00); Lymphocytes # (Auto) 0.4 Thou/mm3 (1.0-4.8); Lymphocytes % (Auto) 6 % (10-50); Mean Corpuscular HGB Conc 34.9 g/dl (31.0-37.0); Mean Corpuscular Hemoglobin 25.9 pg (25.0-35.0); Mean Corpuscular Volume 74 fL (80-100); Monocytes # (Auto) 0.7 Thou/mm3 (0.0-0.8); Monocytes % (Auto) 10 % (0-12); Neutrophils # (Auto) 5.1 Thou/mm3 (1.8-7.7); Neutrophils % (Auto) 76 % (37-80); Nucleated Red Blood Cell % 0 /100 WBC (0); Platelet Count 126 Thou/mm3 (140-440); RDW Standard Deviation 49.2 fL (36.4-46.3); White Blood Count 6.7 Thou/mm3 (3.6-11.0)
[2024-10-22 07:23] LABS: Alanine Aminotransferase 28 U/L (10-49); Albumin/Globulin Ratio 1.9 (1.2-2.2); Alkaline Phosphatase 74 U/L (46-116); Anion Gap 3 (7-16); Aspartate Amino Transferase 32 U/L (0-34); BUN/Creatinine Ratio 18 Ratio (12-20); Bilirubin,Total 0.5 mg/dL (0.3-1.2); Blood Urea Nitrogen 7 mg/dL (9-23); Calcium 7.5 mg/dL (8.3-10.6); Calcium (Corrected) 8.3 mg/dL (8.5-10.1); Carbon Dioxide 24.4 mMol/L (20.0-31.0); Chloride 106 mMol/L (98-107); Creatinine (Component) 0.4 mg/dL (0.6-1.3); Estimated Creatinine Clearance 75.7 mL/min (>60); Globulin 1.6 gm/dL (2.3-3.5); Glucose 98 mg/dL (74-106); Osmolality,Calculated 264 (275-295); Phosphorous 2.3 mg/dL (2.4-5.1); Potassium 3.2 mMol/L (3.4-5.1); Sodium 133 mMol/L (136-145); Total Protein 4.6 gm/dL (5.7-8.2); eGFR > 60 See Note
[2024-10-22 07:27] LABS: OBS Card Expiration Date 2026-09; OBS Card Lot # 23001; OBS Developer Lot # 23002; OBS Performed By LAB; OBS QC OK? Yes
[2024-10-22 07:50] VITALS: PULSE 65; RESP 18; RESP 99
[2024-10-22 08:00] VITALS: BP 136/73; PULSE 57; PULSE 73; RESP 17; TEMP 36.6; O2SAT 98
[2024-10-22 08:01] LABS: Occult Blood, Stool Positive (Negative)
[2024-10-22 08:09] LABS: Parathyroid Hormone Intact 131.7 pg/ml (18.5-88.0)
[2024-10-22 09:15] VITALS: BP 136/73; PULSE 73
[2024-10-22] MEDS: LOSARTAN POTASSIUM 25 MG TABLET 50 MG PO (09:15)
[2024-10-22] MEDS: POTASSIUM CHLORIDE 20 mEq TABCR 40 MEQ PO (09:15)
[2024-10-22] MEDS: LEVOFLOXACIN/D5W 750MG IVPB 750 MG/150 ML BAG 100 MG IV (09:15)
[2024-10-22] MEDS: CHOLECALCIFEROL (Vitamin D3) 1,000 IU TABLET 1000 IU PO (09:15)
[2024-10-22] MEDS: LACTOBACILLUS RHAMNOSUS 1 CAP PO (09:15)
[2024-10-22] MEDS: CALCIUM CARBONATE 600 MG TABLET PO (09:15)
[2024-10-22] MEDS: SERTRALINE HCL 25 MG TABLET PO (09:16)
[2024-10-22] MEDS: PANTOPRAZOLE INJ 40 MG VIAL IV (09:16)
[2024-10-22] MEDS: Magnesium Sulfate 2 GM Ivpb 2 GM/50 ML BAG IV (10:57)
[2024-10-22] MEDS: POT PHOS 15 mMol in NS 250 ML 15 MMOL/250 ML BAG 62.5 MMOL IV (10:58)
[2024-10-22 12:00] VITALS: BP 165/73; PULSE 60; PULSE 73; RESP 21; TEMP 36.4; O2SAT 97
--- NOTE | 2024-10-22 12:29 | PC.SS ---
SS follow up note; SS contacted patient's niece, Cherie in regards to HH, she reported she would not like HH to follow patient. SS also inquired about discharge orders, Cherie informed SS she will provide transportation once she is off work at 2PM. SS verbalized understanding and updated patient's nurse, Desiree. SS will stand by for further needs.
--- NOTE | 2024-10-22 20:03 | ESDS_ITS ---
<Statement entered by Ofelia Castro MD - 10/28/24 13:20> I reviewed above note and agree with findings and plans. I have also personally examined the patient with medicine team and went over assessment and plan with medical team including internal grinding machine operator and resident physician. Planned Discharge Date 10/22/24 DS: Providers Provider Date of admission: 10/19/24 22:03 Primary care physician: Santo Winter MD Admitting Provider: Vsau Ga MD Attending Provider on Admission: Ofelia Castro MD Consults: 10/20/24 00:54 Referral Infection Control Routine Comment: Reason for Infection Control Referral: Admitted with Diarrhea 10/20/24 00:55 Referral Registered Dietitian Routine Comment: 10/20/24 03:29 Referral Speech Therapy Routine Comment: 10/21/24 10:35 Referral Physical Therapy Routine Comment: Physician Instructions: Attending Provider on DC: Rashid Mcdonald MD Discharging Provider: Rashid Mcdonald MD DS: Diagnosis Problem List Completed Was Problem List Reviewed/Reconciled?: Yes Hospital Course Hospital Course Hospital course: A 74-year-old female with a previous medical history of developmental delay with disability, hypertension, barycardia s/p pacemaker implantation, multiple myeloma on chemotherapy, anxiety who was brought in by her niece on 10/19/24 due to general weakness and watery diarrhea tinged with blood and admitted for acute gastroenteritis. Vitals are stable at the time of admission except for temperature of 100.7 ?F. Labs are significant for sodium 129, potassium 2.7, CRP 24.2, procalcitonin 2.49 at the time of admission. Stool for WBC and Clostridium difficile toxin B gene came back negative. Blood cultures and stool culture came back negative. Patient was treated with antibiotics and electrolytes during the hospital stay Patient is discharged to home with the following medications and recommendations -Follow-up with PCP within 1 week of discharge. If you do not have appointment, please follow-up with the [facility] with Dr. Mcdonald. Call [phone] to make an appointment. -Follow up with Technical Artist Dr. Krishna within 1 week of discharge -Continue Levofloxacin 750mg daily and Metronidazole 500mg three times daily for 7 more days. -Continue Lactobacillus orally daily -Start taking Vitamin D 2000 units every day -Hold sertraline and pantoprazole till the antibiotic course is completed and seen by a PCP -Continue rest of the home medications -Return to ED if symptoms persist or return #Acute gastroenteritis #Generalised weakness # Left lower lobe infiltrate #Hypokalemia, resolved # Hypophosphatemia, resolved # Transaminitis, resolved #Hypertension #History of bradycardia, s/p pacemaker placement #Hyperlipidemia #Anemia #Thrombocytopenia #Multiple myeloma Patient plan of care was discussed with the attending physician, Dr. Castro and senior resident Dr. Brandon Mcdonald, PGY1 Time Spent with Patient Time attestation: Total time spent providing and/or coordinating discharge services: Time spent: Greater than 30 minutes Exam Vital Signs Temp Pulse Resp BP Pulse Ox O2 Del Method 97.5 F 60 21 H 165/73 H 97 Room Air 10/22/24 12:00 10/22/24 12:00 10/22/24 12:00 10/22/24 12:00 10/22/24 12:00 10/22/24 12:00 Narrative Exam General: Awake. Noted Chemo-Port. HEENT: Normocephalic, atraumatic, mucous membranes moist. Heart: Regular rate and rhythm, no murmurs. Lungs: Clear to auscultation with no wheezing or crackles. Abdomen: Soft, nondistended, nontender, positive bowel sounds. ?No guarding or rebound tenderness. Neurologic: At her baseline, no gross neurological deficit, and patient able to move all 4 extremities. Extremities: No edema. Skin: No rash or ecchymoses. Discharge Plan Plan Patient Disposition: HOME (Self Care) Care Plan Goals: -Follow-up with PCP within 1 week of discharge. If you do not have appointment, please follow-up with the [facility] with Dr. Mcdonald. Call [phone] to make an appointment. -Follow up with Technical Artist Dr. Krishna within 1 week of discharge -Continue Levofloxacin 750mg daily and Metronidazole 500mg three times daily for 7 more days. -Continue Lactobacillus orally daily -Start taking Vitamin D 2000 units every day -Hold sertraline and pantoprazole till the antibiotic course is completed and seen by a PCP -Continue rest of the home medications -Return to ED if symptoms persist or return Prescriptions/Referrals Prescriptions/Med Rec: New levofloxacin 750 mg tablet 750 mg PO QDAY 7 Days Qty: 7 0RF metronidazole 500 mg tablet 500 mg PO BID 7 Days Qty: 14 0RF cholecalciferol (vitamin D3) [Vitamin D3] 50 mcg (2,000 unit) tablet 50 mcg PO QDAY Qty: 30 1RF Lactobacillus acidophilus 1 billion cell capsule 1,000 mmu cells PO QDAY Qty: 30 0RF Continued atorvastatin 20 mg Tablet 20 mg PO HS benazepril 40 mg Tablet 40 mg PO QDAY morphine 30 mg tablet extended release 30 mg PO Q12H Patient Comments: TAKE 1 TABLET BY MOUTH TWICE DAILY oxybutynin chloride 5 mg tablet extended release 24hr 5 mg PO HS Patient Comments: TAKE ONE TABLET BY MOUTH AT BEDTIME Held sertraline [Zoloft] 25 mg Tablet 25 mg PO QDAY Hold Instructions: Resume on 11/06/24. till antibiotic course is done and resume after consulting your pcp and repeat EKG if needed pantoprazole 40 mg tablet,delayed release (DR/EC) 40 mg PO .AM Hold Instructions: Resume on 10/31/24. till antibiotic course is done Patient Comments: TAKE ONE TABLET BY MOUTH EVERY MORNING GASTRIC ACIDITY HEARTBURN No Action Linzess 290 mcg capsule 290 mcg PO DAILY Patient Comments: TAKE ONE CAPSULE BY MOUTH 30 MINUTES BEFORE FIRST MEAL IN THE MORNING aspirin 81 mg Tablet,Delayed Release (Dr/Ec) 81 mg PO QDAY Referrals: Santo Winter MD [Primary Care Provider] - Patient/Caregiver Discharge Instructions Education Materials: Treating Diarrhea, Self-Care for Vomiting and Diarrhea Print Language: South Korean Stand Alone Forms: Kathie Award Info., Patient Portal Info Letter Discharge Order Discharge Orders: Discharge (Routine); Ordered 10/22/24 Ordered By: Rashid Mcdonald Quality Discharge Quality Measures VTE prophylaxis
== END 2024-10-22 15:25 | disposition home or self-care (01) | DRG 871 ==
LOC: SERX 21:08 → SERHOLD 22:13 → S3SX 10-20 00:19
PROVIDERS: Emergency Medicine; Internal Medicine; Admitting Provider Student in an Organized Health Care Education/Training Program; Emergency Provider Emergency Medicine; PCP Internal Medicine; Visit Provider Internal Medicine
DX: A41.9 Sepsis, unspecified organism (principal); J18.9 Pneumonia, unspecified organism; C90.00 Multiple myeloma not having achieved remission; A09 Infectious gastroenteritis and colitis, unspecified; D84.9 Immunodeficiency, unspecified; I10 Essential (primary) hypertension; E83.51 Hypocalcemia; E87.6 Hypokalemia; E78.5 Hyperlipidemia, unspecified; R74.01 Elevation of levels of liver transaminase levels; D63.0 Anemia in neoplastic disease; E86.0 Dehydration; E83.39 Other disorders of phosphorus metabolism; R32 Unspecified urinary incontinence; F41.9 Anxiety disorder, unspecified; R62.50 Unspecified lack of expected normal physiological development in childhood; D69.59 Other secondary thrombocytopenia; F32.A Depression, unspecified; K21.9 Gastro-esophageal reflux disease without esophagitis; Z95.0 Presence of cardiac pacemaker; Z79.899 Other long term (current) drug therapy
CPT/HCPCS: 36415; 71045; 74177; 80053; 81001; 82150; 82248; 82270; 82306; 83605; 83690; 83735; 83970; 84100; 84132; 84145; 84439; 84443; 85025; 85610; 85652; 85730; 86140; 87015; 87040; 87045; 87046; 87205; 87329; 87400; 87449; 87493; 87811; 87899; 92610; 93005; 93225; 96361; 96365; 96366; 96367; 96368; 96375; 97162; 99285; A4649; J0131; J0456; J0696; J1885; J1956; J2405; J2470; J3475; J3480; J3490; J7030; J7040; J7050; J7120; J7999; Q9967; A9270; J1836

== ENCOUNTER 2024-10-30 13:53 | Outpatient (RCR) | payer MEDICARE, SELFPAY ==
[2024-10-02 15:41] LABS: Basophils % (Auto) 0 % (0-2.5); Eosinophils # (Auto) 0.2 Thou/mm3 (0.0-0.5); Eosinophils % (Auto) 2 % (0-10); Hematocrit 31.3 % (36.0-46.0); Hemoglobin 10.2 g/dL (12.0-16.0); Immature Granulocytes % (Auto) 4 % (0-0); Immature Granulocytes Auto 0.29 Thou/mm3 (0.00-0.00); Lymphocytes # (Auto) 0.6 Thou/mm3 (1.0-4.8); Lymphocytes % (Auto) 8 % (10-50); Mean Corpuscular HGB Conc 32.6 g/dl (31.0-37.0); Mean Corpuscular Hemoglobin 25.6 pg (25.0-35.0); Mean Corpuscular Volume 79 fL (80-100); Monocytes # (Auto) 1.5 Thou/mm3 (0.0-0.8); Monocytes % (Auto) 18 % (0-12); Neutrophils # (Auto) 5.7 Thou/mm3 (1.8-7.7); Neutrophils % (Auto) 69 % (37-80); Nucleated Red Blood Cell % 0 /100 WBC (0); Platelet Count 125 Thou/mm3 (140-440); RDW Standard Deviation 48.9 fL (36.4-46.3); Red Blood Count 3.98 Miln/mm3 (4.00-5.20); White Blood Count 8.3 Thou/mm3 (3.6-11.0)
[2024-10-02 16:10] LABS: Alanine Aminotransferase 19 U/L (10-49); Alkaline Phosphatase 74 U/L (46-116); Anion Gap 8 (7-16); Aspartate Amino Transferase 23 U/L (0-34); BUN/Creatinine Ratio 43 Ratio (12-20); Bilirubin,Total 0.4 mg/dL (0.3-1.2); Blood Urea Nitrogen 17 mg/dL (9-23); Calcium 9.3 mg/dL (8.3-10.6); Calcium (Corrected) 9.3 mg/dL (8.5-10.1); Chloride 104 mMol/L (98-107); Creatinine (Component) 0.4 mg/dL (0.6-1.3); Glucose 89 mg/dL (74-106); Osmolality,Calculated 278 (275-295); Potassium 3.4 mMol/L (3.4-5.1); Sodium 139 mMol/L (136-145); eGFR > 60 See Note
[2024-10-07 11:23] LABS: Abnormal protein band 1 0.3 g/dL (NONE DETECTED); Albumin 3.8 g/dL (3.8-4.8); Alpha-1-Globulin 0.3 g/dL (0.2-0.3); Alpha-2-Globulin 0.7 g/dL (0.5-0.9); Beta-1-Globulin 0.4 g/dL (0.4-0.6); Beta-2-globulin 0.2 g/dL (0.2-0.5); Gamma Globulin 0.6 g/dL (0.8-1.7); Immunoglobulin G 691 mg/dL (600-1540); Kappa Light Chain, Free 434.9 mg/L (3.3-19.4); Lambda Light Chain, Free 6.8 mg/L (5.7-26.3)
[2024-10-08 06:44] LABS: Beta 2 Microglobulin 3.08 mg/L (< OR = 2.51); Immunoglobulin A 18 mg/dL (70-320); Immunoglobulin M 26 mg/dL (50-300); Kappa/Lambda, Free Ratio 63.96 (0.26-1.65); Protein, total, serum 5.9 g/dL (6.1-8.1)
[2024-10-09 16:02] LABS: Basophils % (Auto) 0 % (0-2.5); Eosinophils # (Auto) 0.1 Thou/mm3 (0.0-0.5); Eosinophils % (Auto) 2 % (0-10); Hematocrit 25.5 % (36.0-46.0); Immature Granulocytes % (Auto) 2 % (0-0); Immature Granulocytes Auto 0.14 Thou/mm3 (0.00-0.00); Lymphocytes # (Auto) 0.5 Thou/mm3 (1.0-4.8); Lymphocytes % (Auto) 8 % (10-50); Mean Corpuscular HGB Conc 31.8 g/dl (31.0-37.0); Mean Corpuscular Hemoglobin 25.8 pg (25.0-35.0); Mean Corpuscular Volume 81 fL (80-100); Monocytes % (Auto) 15 % (0-12); Neutrophils # (Auto) 4.9 Thou/mm3 (1.8-7.7); Neutrophils % (Auto) 72 % (37-80); Nucleated Red Blood Cell % 0 /100 WBC (0); Platelet Count 89 Thou/mm3 (140-440); Red Blood Count 3.14 Miln/mm3 (4.00-5.20); White Blood Count 6.7 Thou/mm3 (3.6-11.0)
[2024-10-09 16:42] LABS: Hemoglobin 8.1 g/dL (12.0-16.0)
[2024-10-09 16:45] LABS: Alanine Aminotransferase 15 U/L (10-49); Albumin, Serum 2.7 gm/dL (3.4-4.8); Albumin/Globulin Ratio 1.8 (1.2-2.2); Alkaline Phosphatase 52 U/L (46-116); Anion Gap 8 (7-16); Aspartate Amino Transferase 22 U/L (0-34); BUN/Creatinine Ratio 43 Ratio (12-20); Bilirubin,Total 0.4 mg/dL (0.3-1.2); Blood Urea Nitrogen 13 mg/dL (9-23); Calcium (Corrected) 7.1 mg/dL (8.5-10.1); Carbon Dioxide 21.3 mMol/L (20.0-31.0); Chloride 117 mMol/L (98-107); Creatinine (Component) 0.3 mg/dL (0.6-1.3); Globulin 1.5 gm/dL (2.3-3.5); Glucose 92 mg/dL (74-106); Osmolality,Calculated 290 (275-295); Sodium 146 mMol/L (136-145); Total Protein 4.2 gm/dL (5.7-8.2); eGFR > 60 See Note
[2024-10-09 16:52] LABS: Potassium 2.6 mMol/L (3.4-5.1)
[2024-10-09 16:55] LABS: Calcium 6.1 mg/dL (8.3-10.6)
[2024-10-10 08:46] LABS: Basophils % (Auto) 0 % (0-2.5); Eosinophils # (Auto) 0.3 Thou/mm3 (0.0-0.5); Eosinophils % (Auto) 4 % (0-10); Hematocrit 31.9 % (36.0-46.0); Immature Granulocytes % (Auto) 3 % (0-0); Immature Granulocytes Auto 0.17 Thou/mm3 (0.00-0.00); Lymphocytes # (Auto) 0.5 Thou/mm3 (1.0-4.8); Lymphocytes % (Auto) 8 % (10-50); Mean Corpuscular HGB Conc 31.3 g/dl (31.0-37.0); Mean Corpuscular Volume 83 fL (80-100); Monocytes # (Auto) 1.2 Thou/mm3 (0.0-0.8); Monocytes % (Auto) 18 % (0-12); Neutrophils # (Auto) 4.5 Thou/mm3 (1.8-7.7); Neutrophils % (Auto) 68 % (37-80); Nucleated Red Blood Cell % 0 /100 WBC (0); Platelet Count 111 Thou/mm3 (140-440); RDW Standard Deviation 52.7 fL (36.4-46.3); Red Blood Count 3.84 Miln/mm3 (4.00-5.20); White Blood Count 6.6 Thou/mm3 (3.6-11.0)
[2024-10-10 09:04] LABS: Alanine Aminotransferase 20 U/L (10-49); Albumin, Serum 3.9 gm/dL (3.4-4.8); Albumin/Globulin Ratio 2.2 (1.2-2.2); Alkaline Phosphatase 75 U/L (46-116); Anion Gap 4 (7-16); Aspartate Amino Transferase 29 U/L (0-34); BUN/Creatinine Ratio 26 Ratio (12-20); Bilirubin,Total 0.4 mg/dL (0.3-1.2); Blood Urea Nitrogen 13 mg/dL (9-23); Calcium 9.1 mg/dL (8.3-10.6); Calcium (Corrected) 9.2 mg/dL (8.5-10.1); Carbon Dioxide 29.8 mMol/L (20.0-31.0); Chloride 106 mMol/L (98-107); Creatinine (Component) 0.5 mg/dL (0.6-1.3); Globulin 1.8 gm/dL (2.3-3.5); Glucose 103 mg/dL (74-106); Osmolality,Calculated 279 (275-295); Potassium 4.6 mMol/L (3.4-5.1); Sodium 140 mMol/L (136-145); Total Protein 5.7 gm/dL (5.7-8.2); eGFR > 60 See Note
[2024-10-30 16:16] LABS: Basophils % (Auto) 1 % (0-2.5); Eosinophils % (Auto) 0 % (0-10); Hematocrit 30.3 % (36.0-46.0); Immature Granulocytes % (Auto) 2 % (0-0); Immature Granulocytes Auto 0.11 Thou/mm3 (0.00-0.00); Lymphocytes # (Auto) 0.8 Thou/mm3 (1.0-4.8); Lymphocytes % (Auto) 19 % (10-50); Mean Corpuscular Hemoglobin 26.8 pg (25.0-35.0); Mean Corpuscular Volume 81 fL (80-100); Monocytes # (Auto) 0.7 Thou/mm3 (0.0-0.8); Monocytes % (Auto) 15 % (0-12); Neutrophils # (Auto) 2.9 Thou/mm3 (1.8-7.7); Neutrophils % (Auto) 63 % (37-80); Nucleated Red Blood Cell % 0 /100 WBC (0); Platelet Count 110 Thou/mm3 (140-440); RDW Standard Deviation 58.4 fL (36.4-46.3); Red Blood Count 3.73 Miln/mm3 (4.00-5.20); White Blood Count 4.5 Thou/mm3 (3.6-11.0)
[2024-10-30 16:53] LABS: Alanine Aminotransferase 9 U/L (10-49); Albumin, Serum 3.3 gm/dL (3.4-4.8); Albumin/Globulin Ratio 1.7 (1.2-2.2); Alkaline Phosphatase 63 U/L (46-116); Anion Gap 8 (7-16); Aspartate Amino Transferase 34 U/L (0-34); BUN/Creatinine Ratio 26 Ratio (12-20); Bilirubin,Total 0.5 mg/dL (0.3-1.2); Blood Urea Nitrogen 13 mg/dL (9-23); Calcium 8.5 mg/dL (8.3-10.6); Calcium (Corrected) 9.1 mg/dL (8.5-10.1); Chloride 104 mMol/L (98-107); Creatinine (Component) 0.5 mg/dL (0.6-1.3); Globulin 1.9 gm/dL (2.3-3.5); Glucose 82 mg/dL (74-106); Osmolality,Calculated 276 (275-295); Potassium 3.4 mMol/L (3.4-5.1); Sodium 139 mMol/L (136-145); Total Protein 5.2 gm/dL (5.7-8.2); eGFR > 60 See Note
[2024-11-03 11:18] LABS: Abnormal protein band 1 0.3 g/dL (NONE DETECTED); Albumin 2.9 g/dL (3.8-4.8); Alpha-1-Globulin 0.3 g/dL (0.2-0.3); Alpha-2-Globulin 0.7 g/dL (0.5-0.9); Beta-1-Globulin 0.3 g/dL (0.4-0.6); Beta-2-globulin 0.2 g/dL (0.2-0.5); Gamma Globulin 0.6 g/dL (0.8-1.7)
[2024-11-08 19:52] LABS: Immunoglobulin G 746 mg/dL (600-1540); Kappa Light Chain, Free 431.5 mg/L (3.3-19.4); Lambda Light Chain, Free 22.5 mg/L (5.7-26.3)
[2024-11-11 07:01] LABS: Beta 2 Microglobulin 3.62 mg/L (< OR = 2.51); Immunoglobulin A 36 mg/dL (70-320); Immunoglobulin M 30 mg/dL (50-300); Kappa/Lambda, Free Ratio 19.18 (0.26-1.65)
== END 2024-10-30 23:59 | disposition home or self-care (01) ==
LOC: SCTC 13:53
PROVIDERS: PCP Internal Medicine; Referring Provider Internal Medicine; Visit Provider Internal Medicine Hematology & Oncology
DX: Z51.11 Encounter for antineoplastic chemotherapy (principal); C90.00 Multiple myeloma not having achieved remission; G62.0 Drug-induced polyneuropathy; T45.1X5D Adverse effect of antineoplastic and immunosuppressive drugs, subsequent encounter
CPT/HCPCS: 36591; 80053; 82232; 82784; 83521; 84155; 84165; 85025; 86334; 96367; 96413; A4216; J1100; J1453; J1642; J2405; J7040; J7050; J9075

== ENCOUNTER → 2024-11-12 | Outpatient (CLI) | payer MEDICARE, SELFPAY ==
--- NOTE | 2024-10-22 19:54 | PD.RESDS ---
Planned Discharge Date 10/22/24 DS: Providers Provider Primary care physician: Physician No Primary/Family Attending Provider on Admission: Sotero Edward MD Attending Provider on DC: Rashid Mcdonald MD Discharging Provider: Rashid Mcdonald MD Hospital Course Time Spent with Patient Time attestation: Total time spent providing and/or coordinating discharge services: Discharge Plan Plan Patient Disposition: HOME (Self Care) Prescriptions/Referrals Prescriptions/Med Rec: No Action sertraline [Zoloft] 25 mg Tablet 25 mg PO QDAY atorvastatin 20 mg Tablet 20 mg PO HS benazepril 40 mg Tablet 40 mg PO QDAY morphine 30 mg tablet extended release 30 mg PO Q12H Patient Comments: TAKE 1 TABLET BY MOUTH TWICE DAILY oxybutynin chloride 5 mg tablet extended release 24hr 5 mg PO HS Patient Comments: TAKE ONE TABLET BY MOUTH AT BEDTIME pantoprazole 40 mg tablet,delayed release (DR/EC) 40 mg PO .AM Patient Comments: TAKE ONE TABLET BY MOUTH EVERY MORNING GASTRIC ACIDITY HEARTBURN Linzess 290 mcg capsule 290 mcg PO DAILY Patient Comments: TAKE ONE CAPSULE BY MOUTH 30 MINUTES BEFORE FIRST MEAL IN THE MORNING levofloxacin 750 mg tablet 750 mg PO QDAY 7 Days Qty: 7 0RF metronidazole 500 mg tablet 500 mg PO BID 7 Days Qty: 14 0RF cholecalciferol (vitamin D3) [Vitamin D3] 50 mcg (2,000 unit) tablet 50 mcg PO QDAY Qty: 30 1RF Lactobacillus acidophilus 1 billion cell capsule 1,000 mmu cells PO QDAY Qty: 30 0RF aspirin 81 mg Tablet,Delayed Release (Dr/Ec) 81 mg PO QDAY Referrals: No Primary/Family,Physician [Primary Care Provider] - Patient/Caregiver Discharge Instructions Print Language: Bulgarian Stand Alone Forms: Patient Portal Info Letter
--- NOTE | 2024-11-12 14:45 | XR_ITS ---
EXAMINATION: PET/CT FUSION SKULL TO THIGH EXAM DATE AND TIME: November 12, [address] abdomen pelvis October 19, 2024, PET/CT scan October 02, 2023 INDICATIONS: Diagnosis multiple myeloma restaging CTDI:vol (mGy) 2.38 DLP: (mGycm) 217 PROCEDURE: 16.7 mCi FDG was administered intravenously To allow for distribution and uptake of radiotracer, the patient was allowed to rest quietly in a shielded room. Imaging was performed on an integrated 16-slice PET/CT scanner, with scanning from the skull base to the mid thigh. Serum blood glucose at the time of the injection was measured 94 mg/dL. CT scanning was performed without oral or intravenous contrast material. FINDINGS: Head and Neck: Mildly hypermetabolic left thyroid lobe Chest: There is no adolfo hypermetabolism in the chest. There are no pulmonary nodules. Abdomen and Pelvis: There is no adolfo hypermetabolism in retroperitoneal or pelvic chains. The spleen is normal in size and FDG avidity. 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
== END | disposition home or self-care (01) ==
LOC: CDIM 14:22
PROVIDERS: PCP Internal Medicine; Referring Provider Internal Medicine Hematology & Oncology; Visit Provider Internal Medicine Hematology & Oncology
DX: M89.50 Osteolysis, unspecified site (principal); C90.00 Multiple myeloma not having achieved remission
CPT/HCPCS: 78815; A9552

== ENCOUNTER 2024-11-28 11:34 | Outpatient (RCR) | payer MEDICARE, SELFPAY ==
[2024-11-06 16:17] LABS: Basophils # (Auto) 0.1 Thou/mm3 (0.0-0.2); Basophils % (Auto) 1 % (0-2.5); Eosinophils # (Auto) 0.5 Thou/mm3 (0.0-0.5); Eosinophils % (Auto) 6 % (0-10); Hematocrit 35.2 % (36.0-46.0); Hemoglobin 11.4 g/dL (12.0-16.0); Immature Granulocytes % (Auto) 4 % (0-0); Immature Granulocytes Auto 0.32 Thou/mm3 (0.00-0.00); Lymphocytes # (Auto) 1.4 Thou/mm3 (1.0-4.8); Lymphocytes % (Auto) 19 % (10-50); Mean Corpuscular HGB Conc 32.4 g/dl (31.0-37.0); Mean Corpuscular Hemoglobin 27.1 pg (25.0-35.0); Mean Corpuscular Volume 84 fL (80-100); Monocytes # (Auto) 1.4 Thou/mm3 (0.0-0.8); Monocytes % (Auto) 19 % (0-12); Neutrophils # (Auto) 3.9 Thou/mm3 (1.8-7.7); Neutrophils % (Auto) 51 % (37-80); Nucleated Red Blood Cell % 0 /100 WBC (0); Platelet Count 143 Thou/mm3 (140-440); RDW Standard Deviation 61.5 fL (36.4-46.3); White Blood Count 7.5 Thou/mm3 (3.6-11.0)
[2024-11-06 16:40] LABS: Alanine Aminotransferase 14 U/L (10-49); Albumin, Serum 3.8 gm/dL (3.4-4.8); Albumin/Globulin Ratio 1.9 (1.2-2.2); Alkaline Phosphatase 62 U/L (46-116); Anion Gap 6 (7-16); Aspartate Amino Transferase 34 U/L (0-34); BUN/Creatinine Ratio 28 Ratio (12-20); Bilirubin,Total 0.6 mg/dL (0.3-1.2); Blood Urea Nitrogen 14 mg/dL (9-23); Calcium 8.5 mg/dL (8.3-10.6); Calcium (Corrected) 8.7 mg/dL (8.5-10.1); Carbon Dioxide 27.1 mMol/L (20.0-31.0); Chloride 103 mMol/L (98-107); Creatinine (Component) 0.5 mg/dL (0.6-1.3); Glucose 101 mg/dL (74-106); Osmolality,Calculated 272 (275-295); Potassium 3.9 mMol/L (3.4-5.1); Sodium 136 mMol/L (136-145); Total Protein 5.8 gm/dL (5.7-8.2); eGFR > 60 See Note
[2024-11-13 11:24] LABS: Basophils % (Auto) 0 % (0-2.5); Eosinophils # (Auto) 0.4 Thou/mm3 (0.0-0.5); Eosinophils % (Auto) 4 % (0-10); Hematocrit 33.5 % (36.0-46.0); Hemoglobin 11.4 g/dL (12.0-16.0); Immature Granulocytes % (Auto) 2 % (0-0); Immature Granulocytes Auto 0.23 Thou/mm3 (0.00-0.00); Lymphocytes # (Auto) 1.2 Thou/mm3 (1.0-4.8); Lymphocytes % (Auto) 13 % (10-50); Mean Corpuscular Hemoglobin 28.4 pg (25.0-35.0); Mean Corpuscular Volume 83 fL (80-100); Monocytes # (Auto) 1.4 Thou/mm3 (0.0-0.8); Monocytes % (Auto) 15 % (0-12); Neutrophils # (Auto) 6.4 Thou/mm3 (1.8-7.7); Neutrophils % (Auto) 66 % (37-80); Nucleated Red Blood Cell % 0 /100 WBC (0); Platelet Count 150 Thou/mm3 (140-440); RDW Standard Deviation 61.6 fL (36.4-46.3); Red Blood Count 4.02 Miln/mm3 (4.00-5.20); White Blood Count 9.7 Thou/mm3 (3.6-11.0)
[2024-11-13 11:43] LABS: Alanine Aminotransferase 15 U/L (10-49); Albumin, Serum 3.8 gm/dL (3.4-4.8); Alkaline Phosphatase 65 U/L (46-116); Anion Gap 9 (7-16); Aspartate Amino Transferase 24 U/L (0-34); BUN/Creatinine Ratio 40 Ratio (12-20); Bilirubin,Total 0.6 mg/dL (0.3-1.2); Blood Urea Nitrogen 16 mg/dL (9-23); Calcium 8.6 mg/dL (8.3-10.6); Calcium (Corrected) 8.8 mg/dL (8.5-10.1); Carbon Dioxide 26.4 mMol/L (20.0-31.0); Chloride 101 mMol/L (98-107); Creatinine (Component) 0.4 mg/dL (0.6-1.3); Globulin 1.9 gm/dL (2.3-3.5); Glucose 97 mg/dL (74-106); Osmolality,Calculated 273 (275-295); Potassium 3.9 mMol/L (3.4-5.1); Sodium 136 mMol/L (136-145); Total Protein 5.7 gm/dL (5.7-8.2); eGFR > 60 See Note
[2024-11-20 15:15] LABS: Basophils % (Auto) 0 % (0-2.5); Eosinophils # (Auto) 0.2 Thou/mm3 (0.0-0.5); Eosinophils % (Auto) 2 % (0-10); Hematocrit 31.4 % (36.0-46.0); Hemoglobin 10.8 g/dL (12.0-16.0); Immature Granulocytes % (Auto) 2 % (0-0); Immature Granulocytes Auto 0.21 Thou/mm3 (0.00-0.00); Lymphocytes # (Auto) 1.1 Thou/mm3 (1.0-4.8); Lymphocytes % (Auto) 12 % (10-50); Mean Corpuscular HGB Conc 34.4 g/dl (31.0-37.0); Mean Corpuscular Hemoglobin 28.4 pg (25.0-35.0); Mean Corpuscular Volume 83 fL (80-100); Monocytes # (Auto) 1.2 Thou/mm3 (0.0-0.8); Monocytes % (Auto) 13 % (0-12); Neutrophils # (Auto) 6.7 Thou/mm3 (1.8-7.7); Neutrophils % (Auto) 71 % (37-80); Nucleated Red Blood Cell % 0 /100 WBC (0); Platelet Count 116 Thou/mm3 (140-440); RDW Standard Deviation 58.7 fL (36.4-46.3); White Blood Count 9.4 Thou/mm3 (3.6-11.0)
[2024-11-20 15:34] LABS: Alanine Aminotransferase 13 U/L (10-49); Albumin, Serum 3.8 gm/dL (3.4-4.8); Alkaline Phosphatase 64 U/L (46-116); Anion Gap 8 (7-16); Aspartate Amino Transferase 22 U/L (0-34); BUN/Creatinine Ratio 40 Ratio (12-20); Bilirubin,Total 0.6 mg/dL (0.3-1.2); Blood Urea Nitrogen 20 mg/dL (9-23); Calcium 8.6 mg/dL (8.3-10.6); Calcium (Corrected) 8.8 mg/dL (8.5-10.1); Carbon Dioxide 27.3 mMol/L (20.0-31.0); Chloride 100 mMol/L (98-107); Creatinine (Component) 0.5 mg/dL (0.6-1.3); Globulin 1.9 gm/dL (2.3-3.5); Glucose 121 mg/dL (74-106); Osmolality,Calculated 273 (275-295); Potassium 4.2 mMol/L (3.4-5.1); Sodium 135 mMol/L (136-145); Total Protein 5.7 gm/dL (5.7-8.2); eGFR > 60 See Note
--- NOTE | 2024-11-21 14:18 | CTCFLWUP_ITS ---
Patient: PETER PRINCE : 1950 Page 2 of 2 FOLLOW UP NOTE DATE OF SERVICE: 11/18/2024 NAME: PETER PRINCE ACCOUNT: [id number] : 1950 AGE: 74 INTERVAL HISTORY: Suresh Green, an elderly female, presented for cancer treatment follow-up with neuropathy symptoms. History of cancer with recent hospitalization. PET scan showed stable lesions with no new cancer detected, and previous bone marrow biopsy was negative, suggesting remission. Patient reported numbness and tingling in hands without pain. Velcade was discontinued due to neuropathy concerns. Plan includes neurologist referral, cold therapy for neuropathy, follow-up bone marrow biopsy, and possible transition to oral medications if remission confirmed. Chief Complaint Follow-up visit for cancer treatment, neuropathy symptoms History of Present Illness Suresh Green, an elderly female patient with a history of cancer, presents for follow-up. Since her last visit, her overall condition has been variable with good days and bad days, though she has shown improvement following a recent hospitalization. The patient's caregiver reports that Suresh is currently doing well and appears to be in the best condition they have seen. Suresh is described as looking perked up, smiling, and in good spirits. The patient's neuropathy, a known side effect of her previous treatment, continues to be a concern. She experiences numbness and tingling in her hands, which the patient describes as pretty [bad] but not causing pain. Suresh has recently undergone a PET scan to evaluate her cancer status. She has also had a consultation with an oncologist in [place], who has recommended referrals to a neurologist and other specialists for further evaluation of her neuropathy. The patient's treatment regimen has been adjusted, with Velcade being discontinued due to concerns about side effects, particularly in light of her age and risk of falls. Medications and Supplements - Velcade - Discontinued due to neuropathy. - Gabapentin - Not currently taking. Review of Systems HEENT: Negative for hearing (patient forgot hearing aids). Neurological: Positive for neuropathy with numbness and tingling in hands, negative for pain. ONCOLOGY HISTORY:?[facility] Hx? DIAGNOSIS: Multiple myeloma not having achieved remission [ICD10] C90.00 DATE OF DIAGNOSIS: 12/05/2019 STAGE/TNM: Multiple myeloma RISS stage III, kappa light chain multiple myeloma (12/05/2019), duplication 1 q., deletion 13 q. VRd (Velcade, Revlimid and Decadron) chemotherapy and Zometa started on 02/19/2020. Revlimid discontinued secondary to diffuse rash (03/18/2020) Last dose of Velcade was given on 10/08/2020. Was on Pomalyst 06/03/2020?02/20/2023. Pomalyst discontinued due to progression Progressed on daratumumab (03/16/2023 - 10/02/2022) Currently on Velcade cyclophosphamide and Decadron (VCd chemotherapy) started on 10/11/2023. TREATMENT HISTORY: Care?Plan Start?Date Cycle Day Intent RVd?low?dose 02/19/2020 1 21 Palliative Zoledronic?Acid?4?mg 02/26/2020 1 90 Palliative KCL?20 03/11/2020 1 1 Palliative KCL?40 03/18/2020 1 1 Palliative VRd?low?dex?she 05/22/2020 1 21 Palliative DARatumumab?q?Wkly?RAJAT?trial?1 03/16/2023 1 7 Palliative DARatumumab?q?2?weeks 06/07/2023 1 14 Palliative VCd?dose?reduced?multiple?myeloma 10/11/2023 1 21 Palliative HISTORY OF PRESENT ILLNESS: Peter Prince is a 74-year-old ENG speaking female with history of cardiac arrhythmia currently has pacemaker in place. Recently she was admitted to the hospital for right flank pain. The following work-up was performed. 12/04/2019: CT scan of the chest, abdomen and pelvis without contrast? 12/05/2019: CT-guided biopsy of the lytic lesion of the right anterior iliac bone was performed. Pathology? 12/07/2019: CT scan of the thoracic spine without contrast was also done? 01/08/2020: Patient had appointment for MRI. It was not performed due to pacemaker. 01/22/2020: CT scan of the thoracic spine lumbar spine without IV contrast? 02/07/2020: PET CT scan? 02/13/2020: Bone marrow biopsy and aspiration? 01/23/2020: Tryon light chains 11,021.0. 02/19/2020: Patient is started on VRd chemotherapy. Free kappa light chains 11,683.1 (3.3?19.4) 02/26/2020: Patient received first dose of dose Zometa. 03/18/2020: Revlimid discontinued due to diffuse rash. 05/05/2020: Tryon light chain 1377.7, lambda light chains 12.2. 06/22/2020: Try[place] light chains 961.8, lambda light chains 13.4. 06/03/2020: Patient is started on Pomalyst 2 mg p.o. On a 21-day on and 7 days off regimen. 08/31/2020: Tryon light chain 224.4, lambda light chain 28.6, kappa/lambda ratio is 7.85. 09/16/2020: Decadron decreased to 20 mg p.o. once a week. 09/16/2020: Tryon light chains 141.5, lambda light chain 21.3, kappa/lambda ratio 6.64, IgM 46, IgG 683, IgA 43. 02/25/2021: EGD? 02/08/2021: Tryon light chain 44.8, abnormal protein band 0.2, IgG 914, IgA 70, IgM 57, Beta 2 microglobulin 2.47. 03/31/2021: Decadron decreased to 8 mg p.o. weekly. Ms. Prince continues to take Pomalyst 2 mg p.o. daily on a 21 days on and 7 days off regimen. Last dose of Zometa was given on 09/03/2020. 07/06/2021: Tryon light chains 42.5, lambda light chain 30.0, kappa/lambda ratio 1.42, IgG 926, hemoglobin 13.9, WBC 6.6, ANC 2.9, platelets 205,000. 10/27/2021: Tryon light chains 29.9. M protein 0.4 01/13/2022: Tryon light chain 32.9. M protein 0.6 11/04/2022: Tryon light chains 115.6. M protein 0.6. 12/22/2022: PET/CT scan? 02/02/2023: Bone marrow biopsy and aspiration? 02/09/2023: Tryon light chain 264.2 03/15/2023: Tryon light chains 424.8. 03/16/2023: Ms. Prince is started on daratumumab. 04/17/2023: Tryon light chains 567.4. 05/10/2023 - 05/31/2023: Ms. Prince received 2500 cGy radiation therapy to the left pelvis. 05/10/2023: Tryon light chains 562.8. 06/21/2023: Tryon light chain is 911.6. 07/04/2023: Tryon light chains are 1045.7 08/28/2023: Tryon light chains at 1321.1. 09/13/2023: Tryon light chains at 2144.5. 10/02/2023: PET/CT scan 10/10/2023: Tryon light chains 1919.6 10/11/2023: Ms. Prince is started on Velcade, cyclophosphamide and Decadron chemotherapy. 11/07/2023: Tryon light chains 1287.6 12/05/2023: Tryon light chains 1415.4. 01/02/2024: Tryon light chains 1163.0. OTHER MEDICAL HISTORY/CONDITIONS: FAMILY HISTORY: ?Clone Family Hx? 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 aspirin - 81 mg 1 tab Daily 2. atorvastatin - 10 mg 1 tab Daily 3. Flonase Allergy Relief - 50 mcg/actuation 1 spray twice Daily 4. fluconazole - 200 mg 1 tab Daily 5. Linzess - 72 mcg Capsule Daily 6. lisinopril - 40 mg 1 tab Daily 7. morphine - 30 mg 1 tab twice a day 8. multivitamin - 1 Capsule Daily 9. nystatin - 100,000 unit/mL 5 mL Daily 10. oxybutynin chloride - 5 mg 1 tab Daily 11. potassium chloride - 20 mEq 3 tab Daily 12. prednisone - 5 mg 1 tab 1 tablet every 8 hrs 13. Prilosec - 1 Daily 14. Zoloft - 1 Daily?Palabra Meds? Medications Last Reconciled by Dalia Foster MA on 11/18/2024 ALLERGIES: No Known Allergies; No Known Drug Allergies REVIEW OF SYSTEMS: A complete 14-point review of systems was performed and is negative except as noted in interval history. PHYSICAL EXAMINATION:?[facility] PE? VITAL SIGNS: Temperature?98.2, B/P?122/78, Oxygen?Saturation?98% Weight?93?lbs (Change?since?11/13/24:?-2.2?lbs) PAIN: 2 - Mild pain ECOG Performance Status: 0 - Asymptomatic and fully active Conjunctive are pink. Neck is supple. No adenopathy in the neck, axillary and inguinal region. Chest clear to auscultation. No wheezes or rails audible. Abdomen distended. There is a questionable vague mass palpable around the umbilicus. No hepatosplenomegaly noted. Extremities no clubbing or cyanosis. Laboratory, Imaging, and Diagnostic Test Results - PET scan (date not specified): - Stable lesions - No new cancer detected - No activity on scans - Previous results: - Bone marrow biopsy (date not specified): NegativeLABORATORY DATA: I have personally reviewed and interpreted each of the patient?s relevant lab tests, abnormal findings are below: Date 11/13/24 11/20/24 ??WHITE?BLOOD?COUNT?(Thou/mm3) 9.7 9.4 ??RED?BLOOD?COUNT?(Miln/mm3) 4.02 3.80?L ??HEMOGLOBIN?(gm/dl) 11.4?L 10.8?L ??HEMATOCRIT?(%) 33.5?L 31.4?L ??PLATELET?COUNT?(Thou/mm3) 150 116?L ??NEUTROPHILS?%,?AUTO?(%) 66 71 ??LYMPH?%,?AUTO?(%) 13 12 ??NEUTROPHILS,?AUTO?(Thou/mm3) 6.4 6.7 ??GLUCOSE,RANDOM?(mg/dL) 97 121?H ??BLOOD?UREA?NITROGEN?(mg/dL) 16 20 ??CREATININE?(mg/dL) 0.40?L 0.50?L ??SODIUM?(mmol/L) 136 135?L ??POTASSIUM?(mmol/L) 3.9 4.2 ??CHLORIDE?(mmol/L) 101 100 ??CrCl?(CandG)?(ml/min) 82.84 66.69 ??AST/SGOT?(Unit/L) 24 22 ??ALT/SGPT?(Unit/L) 15 13 ??ALKALINE?PHOSPHATASE?(Unit/L) 65 64 ??BILIRUBIN,?TOTAL?(mg/dL) 0.6 0.6 ??PROTEIN?TOTAL?(gm/dl) 5.7 5.7 ??ALBUMIN,?SERUM?(gm/dl) 3.8 3.8 ??GLOBULIN?(gm/dl) 1.9?L 1.9?L ??ALBUMIN/GLOBULIN?RATIO 2.0 2.0 ??CALCIUM,?SERUM?(mg/dL) 8.6 8.6 ??CALCIUM?SERUM?(CORRECTED)?(mg/dL) 8.8 8.8 ASSESSMENT/PLAN:?Benny Wagner Assessment/Plan? RISS stage III, kappa light chain multiple myeloma (12/05/2019), duplication 1 q., deletion 13 q. Previously patient was treated with VRD regimen.. Patient had reaction to Revlimid with rash which according to the daughter was mild Patient was changed to daratumumab and Switched to Pomalyst after patient progressed on daratumumab Myeloma progressed on Pomalyst combination and was switched to Velcade, cyclophosphamide and Decadron started on 10/11/2023. Patient have worsening neuropathy from Velcade Bone marrow biopsy was done and shows no plasma cells but specimen is not adequate I would like patient to be seen at [facility] and bone marrow biopsy repeated I will continue patient on cyclophosphamide and dexamethasone for now and hold Velcade Suresh Green, an elderly female patient with a history of cancer, presents for follow-up after recent hospitalization and PET scan. Cancer (likely in remission) Assessment: Patient's condition has significantly improved since the last visit and recent hospitalization. PET scan results show stability in existing lesions with no new cancer detected. Previous bone marrow biopsy was negative. Clinical presentation is consistent with remission, as evidenced by improved overall condition and stable imaging findings. Plan: - Continue current treatment regimen - Discontinue Velcade due to neuropathy concerns - Perform follow-up bone marrow biopsy to confirm remission status - If remission is confirmed, consider transitioning to oral medication regimen Peripheral Neuropathy Assessment: Patient reports numbness and tingling in extremities, likely secondary to previous Velcade treatment. Symptoms are present but not causing significant pain or functional impairment at this time. Plan: - Refer to neurologist for further evaluation (as recommended by Dr. Andreas Goodrich) - Recommend cold therapy: 5-minute cold water immersion for hands and feet - Consider purchasing cold therapy gloves and mittens - Hold on pain medications (e.g., gabapentin, duloxetine) unless pain becomes significant - Reassess at next follow-up visit ORDERS: Order # Description 2 months RETURN TO CLINIC: BILLING AND COMPLIANCE: I reviewed external records from providers outside my specialty as summarized above. I spent a total of 50 minutes on this patient?s care on the day of their visit excluding time spent related to any billed procedures. This time includes time spent with the patient as well as time spent documenting in the medical record, reviewing patients records and tests, obtaining history, placing orders, communicating with other healthcare professionals, counseling the patient, family or caregiver, and/or care coordination for the diagnoses above. Electronically Signed by: Sotero Edward MD T: 11:04 AM CC: MIGNON Santiago PCP: Santo Winter Referring: Santo Winter This document was completed utilizing speech recognition software. Grammatical errors, random word insertions, pronoun errors, and incomplete sentences are an occasional consequence of this system due to software limitations, ambient noise, and hardware issues. Any formal questions or concerns about the content, text or information contained within the body of this dictation should be directly addressed to the provider for clarification.
[2024-11-27 15:08] LABS: Basophils # (Auto) 0.1 Thou/mm3 (0.0-0.2); Basophils % (Auto) 1 % (0-2.5); Eosinophils # (Auto) 0.3 Thou/mm3 (0.0-0.5); Eosinophils % (Auto) 4 % (0-10); Hematocrit 31.9 % (36.0-46.0); Hemoglobin 10.9 g/dL (12.0-16.0); Immature Granulocytes % (Auto) 4 % (0-0); Immature Granulocytes Auto 0.35 Thou/mm3 (0.00-0.00); Lymphocytes # (Auto) 0.6 Thou/mm3 (1.0-4.8); Lymphocytes % (Auto) 7 % (10-50); Mean Corpuscular HGB Conc 34.2 g/dl (31.0-37.0); Mean Corpuscular Hemoglobin 28.4 pg (25.0-35.0); Mean Corpuscular Volume 83 fL (80-100); Monocytes # (Auto) 1.1 Thou/mm3 (0.0-0.8); Monocytes % (Auto) 13 % (0-12); Neutrophils # (Auto) 5.8 Thou/mm3 (1.8-7.7); Neutrophils % (Auto) 71 % (37-80); Nucleated Red Blood Cell % 0 /100 WBC (0); Platelet Count 170 Thou/mm3 (140-440); RDW Standard Deviation 57.1 fL (36.4-46.3); Red Blood Count 3.84 Miln/mm3 (4.00-5.20); White Blood Count 8.2 Thou/mm3 (3.6-11.0)
[2024-11-27 15:26] LABS: Alanine Aminotransferase 11 U/L (10-49); Albumin, Serum 3.8 gm/dL (3.4-4.8); Albumin/Globulin Ratio 2.2 (1.2-2.2); Alkaline Phosphatase 69 U/L (46-116); Anion Gap 10 (7-16); Aspartate Amino Transferase 20 U/L (0-34); BUN/Creatinine Ratio 42 Ratio (12-20); Bilirubin,Total 0.5 mg/dL (0.3-1.2); Blood Urea Nitrogen 21 mg/dL (9-23); Calcium 8.3 mg/dL (8.3-10.6); Calcium (Corrected) 8.5 mg/dL (8.5-10.1); Carbon Dioxide 24.2 mMol/L (20.0-31.0); Chloride 104 mMol/L (98-107); Creatinine (Component) 0.5 mg/dL (0.6-1.3); Globulin 1.7 gm/dL (2.3-3.5); Glucose 115 mg/dL (74-106); Osmolality,Calculated 279 (275-295); Sodium 138 mMol/L (136-145); Total Protein 5.5 gm/dL (5.7-8.2); eGFR > 60 See Note
[2024-12-02 13:49] LABS: Abnormal protein band 1 0.3 g/dL (NONE DETECTED); Albumin 3.4 g/dL (3.8-4.8); Alpha-1-Globulin 0.3 g/dL (0.2-0.3); Alpha-2-Globulin 0.8 g/dL (0.5-0.9); Beta-1-Globulin 0.3 g/dL (0.4-0.6); Beta-2-globulin 0.2 g/dL (0.2-0.5); Gamma Globulin 0.5 g/dL (0.8-1.7)
[2024-12-02 22:05] LABS: Immunoglobulin G 652 mg/dL (600-1540); Kappa Light Chain, Free 232.8 mg/L (3.3-19.4); Lambda Light Chain, Free 6.4 mg/L (5.7-26.3)
[2024-12-03 06:33] LABS: Beta 2 Microglobulin 3.49 mg/L (< OR = 2.51); Immunoglobulin A 17 mg/dL (70-320); Immunoglobulin M 25 mg/dL (50-300); Kappa/Lambda, Free Ratio 36.38 (0.26-1.65); Protein, total, serum 5.5 g/dL (6.1-8.1)
== END 2024-11-30 23:59 | disposition home or self-care (01) ==
LOC: SCTC 11:34
PROVIDERS: PCP Internal Medicine; Referring Provider Internal Medicine; Visit Provider Internal Medicine Hematology & Oncology
DX: Z51.11 Encounter for antineoplastic chemotherapy (principal); C90.00 Multiple myeloma not having achieved remission; G62.0 Drug-induced polyneuropathy; T45.1X5D Adverse effect of antineoplastic and immunosuppressive drugs, subsequent encounter
CPT/HCPCS: 36591; 80053; 82232; 82784; 83521; 84155; 84165; 85025; 86334; 96367; 96368; 96413; 99212; A4216; J1100; J1453; J1642; J2405; J7040; J7050; J9075; G0463

== ENCOUNTER → 2024-12-04 | Outpatient (CLI) | payer MEDICARE, MEDICAID, SELFPAY | END | disposition home or self-care (01) | PROVIDERS: PCP Internal Medicine; Referring Provider Internal Medicine Hematology; Visit Provider Internal Medicine Hematology | DX: C90.00 Multiple myeloma not having achieved remission (principal); D64.9 Anemia, unspecified | CPT/HCPCS: 36415; 82784; 83521; 83921; 86334; 86335 ==

== ENCOUNTER → 2024-12-05 | Outpatient (CLI) | payer MEDICARE, MEDICAID, SELFPAY | END | disposition home or self-care (01) | PROVIDERS: Referring Provider Internal Medicine Hematology; Visit Provider Internal Medicine Hematology | DX: C90.00 Multiple myeloma not having achieved remission (principal) | CPT/HCPCS: 86335 ==

== ENCOUNTER 2024-12-26 10:08 | Outpatient (RCR) | payer MEDICARE, MEDICAID, SELFPAY ==
[2024-12-04 16:21] LABS: Basophils % (Auto) 0 % (0-2.5); Eosinophils # (Auto) 0.2 Thou/mm3 (0.0-0.5); Eosinophils % (Auto) 3 % (0-10); Hematocrit 29.6 % (36.0-46.0); Hemoglobin 10.1 g/dL (12.0-16.0); Immature Granulocytes % (Auto) 3 % (0-0); Immature Granulocytes Auto 0.16 Thou/mm3 (0.00-0.00); Lymphocytes # (Auto) 0.5 Thou/mm3 (1.0-4.8); Lymphocytes % (Auto) 8 % (10-50); Mean Corpuscular HGB Conc 34.1 g/dl (31.0-37.0); Mean Corpuscular Hemoglobin 28.8 pg (25.0-35.0); Mean Corpuscular Volume 84 fL (80-100); Monocytes # (Auto) 0.6 Thou/mm3 (0.0-0.8); Monocytes % (Auto) 11 % (0-12); Neutrophils # (Auto) 4.2 Thou/mm3 (1.8-7.7); Neutrophils % (Auto) 74 % (37-80); Nucleated Red Blood Cell % 0 /100 WBC (0); Platelet Count 163 Thou/mm3 (140-440); RDW Standard Deviation 56.4 fL (36.4-46.3); Red Blood Count 3.51 Miln/mm3 (4.00-5.20); White Blood Count 5.6 Thou/mm3 (3.6-11.0)
[2024-12-04 16:36] LABS: LDH (Lactate Dehydrogenase) 232 U/L (120-246)
[2024-12-04 16:37] LABS: Alanine Aminotransferase 12 U/L (10-49); Albumin, Serum 3.5 gm/dL (3.4-4.8); Albumin/Globulin Ratio 2.2 (1.2-2.2); Alkaline Phosphatase 66 U/L (46-116); Anion Gap 9 (7-16); Aspartate Amino Transferase 21 U/L (0-34); BUN/Creatinine Ratio 45 Ratio (12-20); Bilirubin,Total 0.3 mg/dL (0.3-1.2); Blood Urea Nitrogen 18 mg/dL (9-23); Calcium 8.3 mg/dL (8.3-10.6); Calcium (Corrected) 8.7 mg/dL (8.5-10.1); Carbon Dioxide 29.6 mMol/L (20.0-31.0); Chloride 105 mMol/L (98-107); Creatinine (Component) 0.4 mg/dL (0.6-1.3); Globulin 1.6 gm/dL (2.3-3.5); Glucose 104 mg/dL (74-106); Osmolality,Calculated 288 (275-295); Potassium 3.5 mMol/L (3.4-5.1); Sodium 144 mMol/L (136-145); Total Protein 5.1 gm/dL (5.7-8.2); eGFR > 60 See Note
[2024-12-04 16:39] LABS: Vitamin B12 385 pg/mL (211-911)
[2024-12-04 16:40] LABS: Ferritin 34 ng/mL (7.3-270.7); Iron 44 mcg/dL (50-170); Percent Iron Saturation 17 % (20-55); Total Iron Binding Capacity 250 mcg/dL (250-425); Unsaturated Iron Binding 206 (225-295)
[2024-12-10 03:03] LABS: Abnormal protein band 1 0.3 g/dL (NONE DETECTED); Albumin 3.2 g/dL (3.8-4.8); Alpha-1-Globulin 0.3 g/dL (0.2-0.3); Alpha-2-Globulin 0.7 g/dL (0.5-0.9); Beta-1-Globulin 0.3 g/dL (0.4-0.6); Beta-2-globulin 0.2 g/dL (0.2-0.5); Gamma Globulin 0.4 g/dL (0.8-1.7)
[2024-12-10 06:40] LABS: Protein, total, serum 5.1 g/dL (6.1-8.1)
[2024-12-11 16:39] LABS: Basophils % (Auto) 0 % (0-2.5); Eosinophils # (Auto) 0.2 Thou/mm3 (0.0-0.5); Eosinophils % (Auto) 4 % (0-10); Hemoglobin 10.3 g/dL (12.0-16.0); Immature Granulocytes % (Auto) 3 % (0-0); Immature Granulocytes Auto 0.15 Thou/mm3 (0.00-0.00); Lymphocytes # (Auto) 0.5 Thou/mm3 (1.0-4.8); Lymphocytes % (Auto) 10 % (10-50); Mean Corpuscular HGB Conc 34.3 g/dl (31.0-37.0); Mean Corpuscular Hemoglobin 29.1 pg (25.0-35.0); Mean Corpuscular Volume 85 fL (80-100); Monocytes % (Auto) 19 % (0-12); Neutrophils # (Auto) 3.5 Thou/mm3 (1.8-7.7); Neutrophils % (Auto) 65 % (37-80); Nucleated Red Blood Cell % 0 /100 WBC (0); Platelet Count 133 Thou/mm3 (140-440); RDW Standard Deviation 55.9 fL (36.4-46.3); Red Blood Count 3.54 Miln/mm3 (4.00-5.20); White Blood Count 5.5 Thou/mm3 (3.6-11.0)
[2024-12-11 16:53] LABS: Aspartate Amino Transferase 19 U/L (0-34)
[2024-12-11 17:04] LABS: Alanine Aminotransferase 9 U/L (10-49); Albumin, Serum 3.6 gm/dL (3.4-4.8); Albumin/Globulin Ratio 2.3 (1.2-2.2); Alkaline Phosphatase 67 U/L (46-116); Anion Gap 10 (7-16); BUN/Creatinine Ratio 34 Ratio (12-20); Bilirubin,Total 0.3 mg/dL (0.3-1.2); Blood Urea Nitrogen 17 mg/dL (9-23); Calcium 8.9 mg/dL (8.3-10.6); Calcium (Corrected) 9.2 mg/dL (8.5-10.1); Carbon Dioxide 28.2 mMol/L (20.0-31.0); Chloride 102 mMol/L (98-107); Creatinine (Component) 0.5 mg/dL (0.6-1.3); Globulin 1.6 gm/dL (2.3-3.5); Glucose 126 mg/dL (74-106); Osmolality,Calculated 282 (275-295); Potassium 3.5 mMol/L (3.4-5.1); Sodium 140 mMol/L (136-145); Total Protein 5.2 gm/dL (5.7-8.2); eGFR > 60 See Note
[2024-12-18 15:47] LABS: Basophils # (Auto) 0.1 Thou/mm3 (0.0-0.2); Basophils % (Auto) 1 % (0-2.5); Eosinophils # (Auto) 0.3 Thou/mm3 (0.0-0.5); Eosinophils % (Auto) 4 % (0-10); Hematocrit 31.5 % (36.0-46.0); Hemoglobin 10.5 g/dL (12.0-16.0); Immature Granulocytes % (Auto) 4 % (0-0); Immature Granulocytes Auto 0.21 Thou/mm3 (0.00-0.00); Lymphocytes # (Auto) 0.7 Thou/mm3 (1.0-4.8); Lymphocytes % (Auto) 11 % (10-50); Mean Corpuscular HGB Conc 33.3 g/dl (31.0-37.0); Mean Corpuscular Hemoglobin 28.6 pg (25.0-35.0); Mean Corpuscular Volume 86 fL (80-100); Monocytes # (Auto) 0.9 Thou/mm3 (0.0-0.8); Monocytes % (Auto) 15 % (0-12); Neutrophils # (Auto) 3.9 Thou/mm3 (1.8-7.7); Neutrophils % (Auto) 65 % (37-80); Nucleated Red Blood Cell % 0 /100 WBC (0); Platelet Count 146 Thou/mm3 (140-440); RDW Standard Deviation 55.9 fL (36.4-46.3); Red Blood Count 3.67 Miln/mm3 (4.00-5.20); White Blood Count 5.9 Thou/mm3 (3.6-11.0)
[2024-12-18 16:10] LABS: Alanine Aminotransferase 10 U/L (10-49); Albumin, Serum 3.8 gm/dL (3.4-4.8); Albumin/Globulin Ratio 2.2 (1.2-2.2); Alkaline Phosphatase 59 U/L (46-116); Anion Gap 7 (7-16); Aspartate Amino Transferase 20 U/L (0-34); BUN/Creatinine Ratio 45 Ratio (12-20); Bilirubin,Total 0.5 mg/dL (0.3-1.2); Blood Urea Nitrogen 18 mg/dL (9-23); Calcium 9.1 mg/dL (8.3-10.6); Calcium (Corrected) 9.3 mg/dL (8.5-10.1); Chloride 105 mMol/L (98-107); Creatinine (Component) 0.4 mg/dL (0.6-1.3); Globulin 1.7 gm/dL (2.3-3.5); Glucose 119 mg/dL (74-106); Osmolality,Calculated 284 (275-295); Potassium 3.5 mMol/L (3.4-5.1); Sodium 141 mMol/L (136-145); Total Protein 5.5 gm/dL (5.7-8.2); eGFR > 60 See Note
[2024-12-25 16:04] LABS: Basophils % (Auto) 1 % (0-2.5); Eosinophils # (Auto) 0.2 Thou/mm3 (0.0-0.5); Eosinophils % (Auto) 4 % (0-10); Hematocrit 29.1 % (36.0-46.0); Immature Granulocytes % (Auto) 2 % (0-0); Immature Granulocytes Auto 0.11 Thou/mm3 (0.00-0.00); Lymphocytes # (Auto) 0.6 Thou/mm3 (1.0-4.8); Lymphocytes % (Auto) 9 % (10-50); Mean Corpuscular HGB Conc 34.4 g/dl (31.0-37.0); Mean Corpuscular Volume 84 fL (80-100); Monocytes % (Auto) 16 % (0-12); Neutrophils # (Auto) 4.3 Thou/mm3 (1.8-7.7); Neutrophils % (Auto) 68 % (37-80); Nucleated Red Blood Cell % 0 /100 WBC (0); Platelet Count 129 Thou/mm3 (140-440); RDW Standard Deviation 53.5 fL (36.4-46.3); Red Blood Count 3.45 Miln/mm3 (4.00-5.20); White Blood Count 6.3 Thou/mm3 (3.6-11.0)
[2024-12-25 16:24] LABS: Alanine Aminotransferase 15 U/L (10-49); Albumin, Serum 3.7 gm/dL (3.4-4.8); Albumin/Globulin Ratio 2.3 (1.2-2.2); Alkaline Phosphatase 65 U/L (46-116); Anion Gap 7 (7-16); Aspartate Amino Transferase 22 U/L (0-34); BUN/Creatinine Ratio 50 Ratio (12-20); Bilirubin,Total 0.4 mg/dL (0.3-1.2); Blood Urea Nitrogen 20 mg/dL (9-23); Calcium 8.8 mg/dL (8.3-10.6); Carbon Dioxide 27.9 mMol/L (20.0-31.0); Chloride 107 mMol/L (98-107); Creatinine (Component) 0.4 mg/dL (0.6-1.3); Globulin 1.6 gm/dL (2.3-3.5); Glucose 138 mg/dL (74-106); Osmolality,Calculated 287 (275-295); Potassium 3.1 mMol/L (3.4-5.1); Sodium 142 mMol/L (136-145); Total Protein 5.3 gm/dL (5.7-8.2); eGFR > 60 See Note
[2025-01-01 16:09] LABS: Basophils # (Auto) 0.1 Thou/mm3 (0.0-0.2); Basophils % (Auto) 1 % (0-2.5); Eosinophils # (Auto) 0.2 Thou/mm3 (0.0-0.5); Eosinophils % (Auto) 4 % (0-10); Hematocrit 29.8 % (36.0-46.0); Hemoglobin 10.4 g/dL (12.0-16.0); Immature Granulocytes % (Auto) 4 % (0-0); Immature Granulocytes Auto 0.28 Thou/mm3 (0.00-0.00); Lymphocytes # (Auto) 0.6 Thou/mm3 (1.0-4.8); Lymphocytes % (Auto) 9 % (10-50); Mean Corpuscular HGB Conc 34.9 g/dl (31.0-37.0); Mean Corpuscular Hemoglobin 29.5 pg (25.0-35.0); Mean Corpuscular Volume 84 fL (80-100); Monocytes # (Auto) 1.2 Thou/mm3 (0.0-0.8); Monocytes % (Auto) 17 % (0-12); Neutrophils # (Auto) 4.5 Thou/mm3 (1.8-7.7); Neutrophils % (Auto) 66 % (37-80); Nucleated Red Blood Cell # 0.03 Thou/mm3 (0.00-0.00); Nucleated Red Blood Cell % 0 /100 WBC (0); Platelet Count 117 Thou/mm3 (140-440); RDW Standard Deviation 52.3 fL (36.4-46.3); Red Blood Count 3.53 Miln/mm3 (4.00-5.20); White Blood Count 6.9 Thou/mm3 (3.6-11.0)
[2025-01-01 16:27] LABS: Alanine Aminotransferase 16 U/L (10-49); Albumin, Serum 3.7 gm/dL (3.4-4.8); Albumin/Globulin Ratio 2.1 (1.2-2.2); Alkaline Phosphatase 65 U/L (46-116); Anion Gap 4 (7-16); Aspartate Amino Transferase 21 U/L (0-34); BUN/Creatinine Ratio 38 Ratio (12-20); Bilirubin,Total 0.4 mg/dL (0.3-1.2); Blood Urea Nitrogen 15 mg/dL (9-23); Calcium 8.9 mg/dL (8.3-10.6); Calcium (Corrected) 9.1 mg/dL (8.5-10.1); Carbon Dioxide 32.6 mMol/L (20.0-31.0); Chloride 104 mMol/L (98-107); Creatinine (Component) 0.4 mg/dL (0.6-1.3); Globulin 1.8 gm/dL (2.3-3.5); Glucose 98 mg/dL (74-106); Osmolality,Calculated 282 (275-295); Potassium 2.9 mMol/L (3.4-5.1); Sodium 141 mMol/L (136-145); Total Protein 5.5 gm/dL (5.7-8.2); eGFR > 60 See Note
== END 2024-12-30 23:59 | disposition home or self-care (01) ==
LOC: SCTC 10:08
PROVIDERS: Internal Medicine Hematology & Oncology; PCP Internal Medicine; Referring Provider Internal Medicine; Visit Provider Radiology Therapeutic Radiology
DX: Z51.11 Encounter for antineoplastic chemotherapy (principal); C90.00 Multiple myeloma not having achieved remission; G62.0 Drug-induced polyneuropathy; T45.1X5D Adverse effect of antineoplastic and immunosuppressive drugs, subsequent encounter
CPT/HCPCS: 36591; 80053; 82607; 82728; 83540; 83550; 83615; 84155; 84165; 84450; 85025; 96367; 96368; 96372; 96413; 96417; A4216; J1100; J1453; J1642; J2405; J7040; J7050; J9075

== ENCOUNTER 2025-01-30 10:03 | Outpatient (RCR) | payer MEDICARE, MEDICAID, SELFPAY ==
[2025-01-02 11:37] LABS: Potassium 3.0 mMol/L (3.4-5.1)
[2025-01-15 15:26] LABS: Basophils # (Auto) 0.0 Thou/mm3 (0.0-0.2); Basophils % (Auto) 0 % (0-2.5); Eosinophils # (Auto) 0.2 Thou/mm3 (0.0-0.5); Eosinophils % (Auto) 4 % (0-10); Hematocrit 29.4 % (36.0-46.0); Hemoglobin 9.7 g/dL (12.0-16.0); Immature Granulocytes Auto 0.15 Thou/mm3 (0.00-0.00); Lymphocytes # (Auto) 0.7 Thou/mm3 (1.0-4.8); Lymphocytes % (Auto) 14 % (10-50); Mean Corpuscular HGB Conc 33.0 g/dl (31.0-37.0); Mean Corpuscular Hemoglobin 29.1 pg (25.0-35.0); Mean Corpuscular Volume 88 fL (80-100); Monocytes # (Auto) 1.0 Thou/mm3 (0.0-0.8); Monocytes % (Auto) 18 % (0-12); Neutrophils # (Auto) 3.3 Thou/mm3 (1.8-7.7); Neutrophils % (Auto) 61 % (37-80); Nucleated Red Blood Cell # 0.02 Thou/mm3 (0.00-0.00); Nucleated Red Blood Cell % 0 /100 WBC (0); Platelet Count 148 Thou/mm3 (140-440); RDW Standard Deviation 50.8 fL (36.4-46.3); Red Blood Count 3.33 Miln/mm3 (4.00-5.20); White Blood Count 5.3 Thou/mm3 (3.6-11.0)
[2025-01-15 15:46] LABS: Alanine Aminotransferase 16 U/L (10-49); Albumin, Serum 3.7 gm/dL (3.4-4.8); Albumin/Globulin Ratio 1.9 (1.2-2.2); Alkaline Phosphatase 72 U/L (46-116); Anion Gap 8 (7-16); Aspartate Amino Transferase 28 U/L (0-34); BUN/Creatinine Ratio 28 Ratio (12-20); Bilirubin,Total 0.5 mg/dL (0.3-1.2); Blood Urea Nitrogen 14 mg/dL (9-23); Calcium 9.1 mg/dL (8.3-10.6); Calcium (Corrected) 9.3 mg/dL (8.5-10.1); Carbon Dioxide 26.8 mMol/L (20.0-31.0); Chloride 109 mMol/L (98-107); Creatinine (Component) 0.5 mg/dL (0.6-1.3); Globulin 2.0 gm/dL (2.3-3.5); Glucose 94 mg/dL (74-106); Osmolality,Calculated 287 (275-295); Potassium 3.4 mMol/L (3.4-5.1); Sodium 144 mMol/L (136-145); Total Protein 5.7 gm/dL (5.7-8.2); eGFR > 60 See Note
[2025-01-19 11:17] LABS: Abnormal protein band 1 0.4 g/dL (NONE DETECTED); Albumin 3.5 g/dL (3.8-4.8); Alpha-1-Globulin 0.2 g/dL (0.2-0.3); Alpha-2-Globulin 0.6 g/dL (0.5-0.9); Beta-1-Globulin 0.3 g/dL (0.4-0.6); Beta-2-globulin 0.2 g/dL (0.2-0.5); Gamma Globulin 0.6 g/dL (0.8-1.7)
[2025-01-20 07:48] LABS: Protein, total, serum 5.5 g/dL (6.1-8.1)
[2025-01-20 13:52] LABS: Immunoglobulin G 700 mg/dL (600-1540); Kappa Light Chain, Free 246.1 mg/L (3.3-19.4); Lambda Light Chain, Free 10.9 mg/L (5.7-26.3)
[2025-01-21 06:47] LABS: Beta 2 Microglobulin 3.23 mg/L (< OR = 2.51); Immunoglobulin A 25 mg/dL (70-320); Immunoglobulin M 30 mg/dL (50-300); Kappa/Lambda, Free Ratio 22.58 (0.26-1.65)
[2025-01-22 15:19] LABS: Basophils # (Auto) 0.0 Thou/mm3 (0.0-0.2); Basophils % (Auto) 1 % (0-2.5); Eosinophils # (Auto) 0.2 Thou/mm3 (0.0-0.5); Eosinophils % (Auto) 4 % (0-10); Hematocrit 29.5 % (36.0-46.0); Hemoglobin 9.9 g/dL (12.0-16.0); Immature Granulocytes Auto 0.35 Thou/mm3 (0.00-0.00); Lymphocytes # (Auto) 0.7 Thou/mm3 (1.0-4.8); Lymphocytes % (Auto) 13 % (10-50); Mean Corpuscular HGB Conc 33.6 g/dl (31.0-37.0); Mean Corpuscular Hemoglobin 28.9 pg (25.0-35.0); Mean Corpuscular Volume 86 fL (80-100); Monocytes # (Auto) 0.9 Thou/mm3 (0.0-0.8); Monocytes % (Auto) 18 % (0-12); Neutrophils # (Auto) 3.0 Thou/mm3 (1.8-7.7); Neutrophils % (Auto) 58 % (37-80); Nucleated Red Blood Cell # 0.02 Thou/mm3 (0.00-0.00); Nucleated Red Blood Cell % 0 /100 WBC (0); Platelet Count 132 Thou/mm3 (140-440); RDW Standard Deviation 48.3 fL (36.4-46.3); Red Blood Count 3.43 Miln/mm3 (4.00-5.20); White Blood Count 5.2 Thou/mm3 (3.6-11.0)
[2025-01-22 15:38] LABS: Alanine Aminotransferase 18 U/L (10-49); Albumin, Serum 3.7 gm/dL (3.4-4.8); Albumin/Globulin Ratio 1.9 (1.2-2.2); Alkaline Phosphatase 67 U/L (46-116); Anion Gap 7 (7-16); Aspartate Amino Transferase 24 U/L (0-34); BUN/Creatinine Ratio 33 Ratio (12-20); Bilirubin,Total 0.4 mg/dL (0.3-1.2); Blood Urea Nitrogen 13 mg/dL (9-23); Calcium 8.7 mg/dL (8.3-10.6); Calcium (Corrected) 8.9 mg/dL (8.5-10.1); Carbon Dioxide 29.6 mMol/L (20.0-31.0); Chloride 107 mMol/L (98-107); Creatinine (Component) 0.4 mg/dL (0.6-1.3); Globulin 1.9 gm/dL (2.3-3.5); Glucose 91 mg/dL (74-106); Osmolality,Calculated 286 (275-295); Potassium 3.3 mMol/L (3.4-5.1); Sodium 144 mMol/L (136-145); Total Protein 5.6 gm/dL (5.7-8.2); eGFR > 60 See Note
[2025-01-22 15:47] LABS: Band Neutrophils (Manual) 1 % (0-6); Lymphocytes (Manual) 11 % (20-44); Metamyelocytes (Manual) 4 % (0-0); Monocytes (Manual) 22 % (2-9); Myelocytes (Manual) 2 % (0-0); Neutrophils (Manual) 60 % (50-70)
[2025-01-29 15:20] LABS: Basophils # (Auto) 0.0 Thou/mm3 (0.0-0.2); Basophils % (Auto) 0 % (0-2.5); Eosinophils # (Auto) 0.4 Thou/mm3 (0.0-0.5); Eosinophils % (Auto) 5 % (0-10); Hematocrit 31.6 % (36.0-46.0); Hemoglobin 10.2 g/dL (12.0-16.0); Immature Granulocytes Auto 0.31 Thou/mm3 (0.00-0.00); Lymphocytes # (Auto) 1.0 Thou/mm3 (1.0-4.8); Lymphocytes % (Auto) 13 % (10-50); Mean Corpuscular HGB Conc 32.3 g/dl (31.0-37.0); Mean Corpuscular Hemoglobin 28.5 pg (25.0-35.0); Mean Corpuscular Volume 88 fL (80-100); Monocytes # (Auto) 1.2 Thou/mm3 (0.0-0.8); Monocytes % (Auto) 15 % (0-12); Neutrophils # (Auto) 4.9 Thou/mm3 (1.8-7.7); Neutrophils % (Auto) 63 % (37-80); Nucleated Red Blood Cell # 0.02 Thou/mm3 (0.00-0.00); Nucleated Red Blood Cell % 0 /100 WBC (0); Platelet Count 138 Thou/mm3 (140-440); RDW Standard Deviation 49.6 fL (36.4-46.3); Red Blood Count 3.58 Miln/mm3 (4.00-5.20); White Blood Count 7.7 Thou/mm3 (3.6-11.0)
[2025-01-29 15:35] LABS: Alanine Aminotransferase 26 U/L (10-49); Albumin, Serum 3.9 gm/dL (3.4-4.8); Albumin/Globulin Ratio 2.0 (1.2-2.2); Alkaline Phosphatase 73 U/L (46-116); Anion Gap 5 (7-16); Aspartate Amino Transferase 30 U/L (0-34); BUN/Creatinine Ratio 25 Ratio (12-20); Bilirubin,Total 0.5 mg/dL (0.3-1.2); Blood Urea Nitrogen 15 mg/dL (9-23); Calcium 8.9 mg/dL (8.3-10.6); Calcium (Corrected) 9.0 mg/dL (8.5-10.1); Carbon Dioxide 27.9 mMol/L (20.0-31.0); Chloride 108 mMol/L (98-107); Creatinine (Component) 0.6 mg/dL (0.6-1.3); Globulin 2.0 gm/dL (2.3-3.5); Glucose 118 mg/dL (74-106); Osmolality,Calculated 283 (275-295); Potassium 3.6 mMol/L (3.4-5.1); Sodium 141 mMol/L (136-145); Total Protein 5.9 gm/dL (5.7-8.2); eGFR > 60 See Note
== END 2025-01-30 23:59 | disposition home or self-care (01) ==
LOC: SCTC 10:03
PROVIDERS: Internal Medicine Hematology & Oncology; PCP Nurse Practitioner Family; Referring Provider Radiology Therapeutic Radiology; Visit Provider Radiology Therapeutic Radiology
DX: Z51.11 Encounter for antineoplastic chemotherapy (principal); C90.00 Multiple myeloma not having achieved remission; G62.0 Drug-induced polyneuropathy; T45.1X5D Adverse effect of antineoplastic and immunosuppressive drugs, subsequent encounter
CPT/HCPCS: 36415; 36591; 80053; 82232; 82784; 83521; 84132; 84155; 84165; 85025; 86334; 96367; 96413; A4216; J1100; J1453; J1642; J2405; J7040; J7050; J9075

== ENCOUNTER 2025-02-27 10:04 | Outpatient (RCR) | payer MEDICARE, MEDICAID, SELFPAY ==
[2025-02-05 16:54] LABS: Basophils # (Auto) 0.0 Thou/mm3 (0.0-0.2); Basophils % (Auto) 1 % (0-2.5); Eosinophils # (Auto) 0.4 Thou/mm3 (0.0-0.5); Eosinophils % (Auto) 5 % (0-10); Hematocrit 30.2 % (36.0-46.0); Hemoglobin 9.8 g/dL (12.0-16.0); Immature Granulocytes Auto 0.22 Thou/mm3 (0.00-0.00); Lymphocytes # (Auto) 0.7 Thou/mm3 (1.0-4.8); Lymphocytes % (Auto) 10 % (10-50); Mean Corpuscular HGB Conc 32.5 g/dl (31.0-37.0); Mean Corpuscular Hemoglobin 28.5 pg (25.0-35.0); Mean Corpuscular Volume 88 fL (80-100); Monocytes # (Auto) 1.1 Thou/mm3 (0.0-0.8); Monocytes % (Auto) 17 % (0-12); Neutrophils # (Auto) 4.1 Thou/mm3 (1.8-7.7); Neutrophils % (Auto) 63 % (37-80); Nucleated Red Blood Cell # 0.00 Thou/mm3 (0.00-0.00); Nucleated Red Blood Cell % 0 /100 WBC (0); Platelet Count 152 Thou/mm3 (140-440); RDW Standard Deviation 50.4 fL (36.4-46.3); Red Blood Count 3.44 Miln/mm3 (4.00-5.20); White Blood Count 6.6 Thou/mm3 (3.6-11.0)
[2025-02-05 17:15] LABS: Alanine Aminotransferase 20 U/L (10-49); Albumin, Serum 3.7 gm/dL (3.4-4.8); Albumin/Globulin Ratio 2.2 (1.2-2.2); Alkaline Phosphatase 68 U/L (46-116); Anion Gap 9 (7-16); Aspartate Amino Transferase 24 U/L (0-34); BUN/Creatinine Ratio 34 Ratio (12-20); Bilirubin,Total 0.3 mg/dL (0.3-1.2); Blood Urea Nitrogen 17 mg/dL (9-23); Calcium 9.2 mg/dL (8.3-10.6); Calcium (Corrected) 9.4 mg/dL (8.5-10.1); Carbon Dioxide 28.9 mMol/L (20.0-31.0); Chloride 104 mMol/L (98-107); Creatinine (Component) 0.5 mg/dL (0.6-1.3); Globulin 1.7 gm/dL (2.3-3.5); Glucose 136 mg/dL (74-106); Osmolality,Calculated 286 (275-295); Potassium 3.2 mMol/L (3.4-5.1); Sodium 142 mMol/L (136-145); Total Protein 5.4 gm/dL (5.7-8.2); eGFR > 60 See Note
[2025-02-12 16:03] LABS: Basophils # (Auto) 0.0 Thou/mm3 (0.0-0.2); Basophils % (Auto) 1 % (0-2.5); Eosinophils # (Auto) 0.4 Thou/mm3 (0.0-0.5); Eosinophils % (Auto) 6 % (0-10); Hematocrit 29.5 % (36.0-46.0); Hemoglobin 9.5 g/dL (12.0-16.0); Immature Granulocytes Auto 0.23 Thou/mm3 (0.00-0.00); Lymphocytes # (Auto) 0.6 Thou/mm3 (1.0-4.8); Lymphocytes % (Auto) 11 % (10-50); Mean Corpuscular HGB Conc 32.2 g/dl (31.0-37.0); Mean Corpuscular Hemoglobin 28.0 pg (25.0-35.0); Mean Corpuscular Volume 87 fL (80-100); Monocytes # (Auto) 1.1 Thou/mm3 (0.0-0.8); Monocytes % (Auto) 19 % (0-12); Neutrophils # (Auto) 3.4 Thou/mm3 (1.8-7.7); Neutrophils % (Auto) 59 % (37-80); Nucleated Red Blood Cell # 0.02 Thou/mm3 (0.00-0.00); Nucleated Red Blood Cell % 0 /100 WBC (0); Platelet Count 148 Thou/mm3 (140-440); RDW Standard Deviation 49.7 fL (36.4-46.3); Red Blood Count 3.39 Miln/mm3 (4.00-5.20); White Blood Count 5.8 Thou/mm3 (3.6-11.0)
[2025-02-12 16:28] LABS: Alanine Aminotransferase 18 U/L (10-49); Albumin, Serum 3.8 gm/dL (3.4-4.8); Albumin/Globulin Ratio 2.2 (1.2-2.2); Alkaline Phosphatase 63 U/L (46-116); Anion Gap 5 (7-16); Aspartate Amino Transferase 26 U/L (0-34); BUN/Creatinine Ratio 25 Ratio (12-20); Bilirubin,Total 0.3 mg/dL (0.3-1.2); Blood Urea Nitrogen 15 mg/dL (9-23); Calcium 9.6 mg/dL (8.3-10.6); Calcium (Corrected) 9.8 mg/dL (8.5-10.1); Carbon Dioxide 28.3 mMol/L (20.0-31.0); Chloride 108 mMol/L (98-107); Creatinine (Component) 0.6 mg/dL (0.6-1.3); Globulin 1.7 gm/dL (2.3-3.5); Glucose 90 mg/dL (74-106); Osmolality,Calculated 282 (275-295); Potassium 4.1 mMol/L (3.4-5.1); Sodium 141 mMol/L (136-145); Total Protein 5.5 gm/dL (5.7-8.2); eGFR > 60 See Note
[2025-02-19 15:32] LABS: Basophils # (Auto) 0.1 Thou/mm3 (0.0-0.2); Basophils % (Auto) 1 % (0-2.5); Eosinophils # (Auto) 0.4 Thou/mm3 (0.0-0.5); Eosinophils % (Auto) 5 % (0-10); Hematocrit 30.4 % (36.0-46.0); Hemoglobin 9.8 g/dL (12.0-16.0); Immature Granulocytes Auto 0.26 Thou/mm3 (0.00-0.00); Lymphocytes # (Auto) 0.6 Thou/mm3 (1.0-4.8); Lymphocytes % (Auto) 9 % (10-50); Mean Corpuscular HGB Conc 32.2 g/dl (31.0-37.0); Mean Corpuscular Hemoglobin 27.8 pg (25.0-35.0); Mean Corpuscular Volume 86 fL (80-100); Monocytes # (Auto) 1.1 Thou/mm3 (0.0-0.8); Monocytes % (Auto) 15 % (0-12); Neutrophils # (Auto) 4.9 Thou/mm3 (1.8-7.7); Neutrophils % (Auto) 67 % (37-80); Nucleated Red Blood Cell # 0.02 Thou/mm3 (0.00-0.00); Nucleated Red Blood Cell % 0 /100 WBC (0); Platelet Count 147 Thou/mm3 (140-440); RDW Standard Deviation 48.8 fL (36.4-46.3); Red Blood Count 3.53 Miln/mm3 (4.00-5.20); White Blood Count 7.3 Thou/mm3 (3.6-11.0)
[2025-02-19 15:58] LABS: Alanine Aminotransferase 17 U/L (10-49); Albumin, Serum 4.0 gm/dL (3.4-4.8); Albumin/Globulin Ratio 2.2 (1.2-2.2); Alkaline Phosphatase 67 U/L (46-116); Anion Gap 8 (7-16); Aspartate Amino Transferase 27 U/L (0-34); BUN/Creatinine Ratio 30 Ratio (12-20); Bilirubin,Total 0.4 mg/dL (0.3-1.2); Blood Urea Nitrogen 15 mg/dL (9-23); Calcium 9.5 mg/dL (8.3-10.6); Calcium (Corrected) 9.5 mg/dL (8.5-10.1); Carbon Dioxide 28.0 mMol/L (20.0-31.0); Chloride 105 mMol/L (98-107); Creatinine (Component) 0.5 mg/dL (0.6-1.3); Globulin 1.8 gm/dL (2.3-3.5); Glucose 110 mg/dL (74-106); Osmolality,Calculated 283 (275-295); Potassium 3.6 mMol/L (3.4-5.1); Sodium 141 mMol/L (136-145); Total Protein 5.8 gm/dL (5.7-8.2); eGFR > 60 See Note
[2025-02-26 16:15] LABS: Basophils # (Auto) 0.0 Thou/mm3 (0.0-0.2); Basophils % (Auto) 0 % (0-2.5); Eosinophils # (Auto) 0.3 Thou/mm3 (0.0-0.5); Eosinophils % (Auto) 4 % (0-10); Hematocrit 32.0 % (36.0-46.0); Hemoglobin 10.2 g/dL (12.0-16.0); Immature Granulocytes Auto 0.27 Thou/mm3 (0.00-0.00); Lymphocytes # (Auto) 0.6 Thou/mm3 (1.0-4.8); Lymphocytes % (Auto) 8 % (10-50); Mean Corpuscular HGB Conc 31.9 g/dl (31.0-37.0); Mean Corpuscular Hemoglobin 27.6 pg (25.0-35.0); Mean Corpuscular Volume 87 fL (80-100); Monocytes # (Auto) 1.2 Thou/mm3 (0.0-0.8); Monocytes % (Auto) 16 % (0-12); Neutrophils # (Auto) 5.0 Thou/mm3 (1.8-7.7); Neutrophils % (Auto) 68 % (37-80); Nucleated Red Blood Cell # 0.00 Thou/mm3 (0.00-0.00); Nucleated Red Blood Cell % 0 /100 WBC (0); Platelet Count 155 Thou/mm3 (140-440); RDW Standard Deviation 49.4 fL (36.4-46.3); Red Blood Count 3.69 Miln/mm3 (4.00-5.20); White Blood Count 7.3 Thou/mm3 (3.6-11.0)
[2025-02-26 16:45] LABS: Alanine Aminotransferase 14 U/L (10-49); Albumin, Serum 4.0 gm/dL (3.4-4.8); Albumin/Globulin Ratio 2.4 (1.2-2.2); Alkaline Phosphatase 67 U/L (46-116); Anion Gap 9 (7-16); Aspartate Amino Transferase 20 U/L (0-34); BUN/Creatinine Ratio 38 Ratio (12-20); Bilirubin,Total 0.3 mg/dL (0.3-1.2); Blood Urea Nitrogen 23 mg/dL (9-23); Calcium 9.8 mg/dL (8.3-10.6); Calcium (Corrected) 9.8 mg/dL (8.5-10.1); Carbon Dioxide 27.7 mMol/L (20.0-31.0); Chloride 106 mMol/L (98-107); Creatinine (Component) 0.6 mg/dL (0.6-1.3); Globulin 1.7 gm/dL (2.3-3.5); Glucose 103 mg/dL (74-106); Osmolality,Calculated 288 (275-295); Potassium 3.7 mMol/L (3.4-5.1); Sodium 143 mMol/L (136-145); Total Protein 5.7 gm/dL (5.7-8.2); eGFR > 60 See Note
[2025-03-04 22:07] LABS: Abnormal protein band 1 0.4 g/dL (NONE DETECTED); Albumin 3.7 g/dL (3.8-4.8); Alpha-1-Globulin 0.2 g/dL (0.2-0.3); Alpha-2-Globulin 0.8 g/dL (0.5-0.9); Beta-1-Globulin 0.4 g/dL (0.4-0.6); Beta-2-globulin 0.2 g/dL (0.2-0.5); Gamma Globulin 0.6 g/dL (0.8-1.7)
[2025-03-04 23:35] LABS: Immunoglobulin G 586 mg/dL (600-1540); Kappa Light Chain, Free 162.6 mg/L (3.3-19.4); Lambda Light Chain, Free 9.1 mg/L (5.7-26.3)
[2025-03-05 05:06] LABS: Beta 2 Microglobulin 2.87 mg/L (< OR = 2.51); Immunoglobulin A 21 mg/dL (70-320); Immunoglobulin M 30 mg/dL (50-300); Kappa/Lambda, Free Ratio 17.87 (0.26-1.65); Protein, total, serum 5.9 g/dL (6.1-8.1)
== END 2025-03-02 23:59 | disposition home or self-care (01) ==
LOC: SCTC 10:04
PROVIDERS: PCP Nurse Practitioner Family; Referring Provider Nurse Practitioner Family; Visit Provider Internal Medicine Hematology & Oncology
DX: Z51.11 Encounter for antineoplastic chemotherapy (principal); C90.00 Multiple myeloma not having achieved remission; G62.2 Polyneuropathy due to other toxic agents; T45.1X5D Adverse effect of antineoplastic and immunosuppressive drugs, subsequent encounter
CPT/HCPCS: 36591; 80053; 82232; 82784; 83521; 84155; 84165; 85025; 86334; 96367; 96413; A4216; J1100; J1453; J1642; J2405; J7040; J7050; J9075

== ENCOUNTER 2025-03-27 09:36 | Outpatient (RCR) | payer MEDICARE, MEDICAID, SELFPAY ==
[2025-03-05 16:20] LABS: Basophils # (Auto) 0.1 Thou/mm3 (0.0-0.2); Basophils % (Auto) 1 % (0-2.5); Eosinophils # (Auto) 0.4 Thou/mm3 (0.0-0.5); Eosinophils % (Auto) 5 % (0-10); Hematocrit 31.1 % (36.0-46.0); Hemoglobin 10.1 g/dL (12.0-16.0); Immature Granulocytes Auto 0.34 Thou/mm3 (0.00-0.00); Lymphocytes # (Auto) 0.6 Thou/mm3 (1.0-4.8); Lymphocytes % (Auto) 7 % (10-50); Mean Corpuscular HGB Conc 32.5 g/dl (31.0-37.0); Mean Corpuscular Hemoglobin 27.9 pg (25.0-35.0); Mean Corpuscular Volume 86 fL (80-100); Monocytes # (Auto) 1.1 Thou/mm3 (0.0-0.8); Monocytes % (Auto) 15 % (0-12); Neutrophils # (Auto) 5.2 Thou/mm3 (1.8-7.7); Neutrophils % (Auto) 68 % (37-80); Nucleated Red Blood Cell # 0.02 Thou/mm3 (0.00-0.00); Nucleated Red Blood Cell % 0 /100 WBC (0); Platelet Count 144 Thou/mm3 (140-440); RDW Standard Deviation 50.0 fL (36.4-46.3); Red Blood Count 3.62 Miln/mm3 (4.00-5.20); White Blood Count 7.7 Thou/mm3 (3.6-11.0)
[2025-03-05 16:37] LABS: Alanine Aminotransferase 13 U/L (10-49); Albumin, Serum 4.0 gm/dL (3.4-4.8); Albumin/Globulin Ratio 2.5 (1.2-2.2); Alkaline Phosphatase 67 U/L (46-116); Anion Gap 12 (7-16); Aspartate Amino Transferase 19 U/L (0-34); BUN/Creatinine Ratio 33 Ratio (12-20); Bilirubin,Total 0.4 mg/dL (0.3-1.2); Blood Urea Nitrogen 20 mg/dL (9-23); Calcium 9.9 mg/dL (8.3-10.6); Calcium (Corrected) 9.9 mg/dL (8.5-10.1); Carbon Dioxide 26.4 mMol/L (20.0-31.0); Chloride 102 mMol/L (98-107); Creatinine (Component) 0.6 mg/dL (0.6-1.3); Globulin 1.6 gm/dL (2.3-3.5); Glucose 143 mg/dL (74-106); Osmolality,Calculated 284 (275-295); Potassium 3.7 mMol/L (3.4-5.1); Sodium 140 mMol/L (136-145); Total Protein 5.6 gm/dL (5.7-8.2); eGFR > 60 See Note
[2025-03-12 15:37] LABS: Basophils # (Auto) 0.0 Thou/mm3 (0.0-0.2); Basophils % (Auto) 1 % (0-2.5); Eosinophils # (Auto) 0.4 Thou/mm3 (0.0-0.5); Eosinophils % (Auto) 5 % (0-10); Hematocrit 30.7 % (36.0-46.0); Hemoglobin 9.9 g/dL (12.0-16.0); Immature Granulocytes Auto 0.38 Thou/mm3 (0.00-0.00); Lymphocytes # (Auto) 0.5 Thou/mm3 (1.0-4.8); Lymphocytes % (Auto) 7 % (10-50); Mean Corpuscular HGB Conc 32.2 g/dl (31.0-37.0); Mean Corpuscular Hemoglobin 27.2 pg (25.0-35.0); Mean Corpuscular Volume 84 fL (80-100); Monocytes # (Auto) 1.2 Thou/mm3 (0.0-0.8); Monocytes % (Auto) 16 % (0-12); Neutrophils # (Auto) 4.8 Thou/mm3 (1.8-7.7); Neutrophils % (Auto) 66 % (37-80); Nucleated Red Blood Cell # 0.03 Thou/mm3 (0.00-0.00); Nucleated Red Blood Cell % 0 /100 WBC (0); Platelet Count 165 Thou/mm3 (140-440); RDW Standard Deviation 49.2 fL (36.4-46.3); Red Blood Count 3.64 Miln/mm3 (4.00-5.20); White Blood Count 7.4 Thou/mm3 (3.6-11.0)
[2025-03-12 15:51] LABS: Alanine Aminotransferase 15 U/L (10-49); Albumin, Serum 3.8 gm/dL (3.4-4.8); Albumin/Globulin Ratio 2.1 (1.2-2.2); Alkaline Phosphatase 66 U/L (46-116); Anion Gap 8 (7-16); Aspartate Amino Transferase 19 U/L (0-34); BUN/Creatinine Ratio 23 Ratio (12-20); Bilirubin,Total 0.3 mg/dL (0.3-1.2); Blood Urea Nitrogen 16 mg/dL (9-23); Calcium 9.7 mg/dL (8.3-10.6); Calcium (Corrected) 9.9 mg/dL (8.5-10.1); Carbon Dioxide 25.6 mMol/L (20.0-31.0); Chloride 106 mMol/L (98-107); Creatinine (Component) 0.7 mg/dL (0.6-1.3); Globulin 1.8 gm/dL (2.3-3.5); Glucose 138 mg/dL (74-106); Osmolality,Calculated 282 (275-295); Potassium 3.7 mMol/L (3.4-5.1); Sodium 140 mMol/L (136-145); Total Protein 5.6 gm/dL (5.7-8.2); eGFR > 60 See Note
[2025-03-19 16:04] LABS: Basophils # (Auto) 0.0 Thou/mm3 (0.0-0.2); Basophils % (Auto) 0 % (0-2.5); Eosinophils # (Auto) 0.3 Thou/mm3 (0.0-0.5); Eosinophils % (Auto) 4 % (0-10); Hematocrit 31.0 % (36.0-46.0); Hemoglobin 10.0 g/dL (12.0-16.0); Immature Granulocytes Auto 0.25 Thou/mm3 (0.00-0.00); Lymphocytes # (Auto) 1.0 Thou/mm3 (1.0-4.8); Lymphocytes % (Auto) 15 % (10-50); Mean Corpuscular HGB Conc 32.3 g/dl (31.0-37.0); Mean Corpuscular Hemoglobin 27.1 pg (25.0-35.0); Mean Corpuscular Volume 84 fL (80-100); Monocytes # (Auto) 1.2 Thou/mm3 (0.0-0.8); Monocytes % (Auto) 17 % (0-12); Neutrophils # (Auto) 4.0 Thou/mm3 (1.8-7.7); Neutrophils % (Auto) 60 % (37-80); Nucleated Red Blood Cell # 0.02 Thou/mm3 (0.00-0.00); Nucleated Red Blood Cell % 0 /100 WBC (0); Platelet Count 149 Thou/mm3 (140-440); RDW Standard Deviation 48.6 fL (36.4-46.3); Red Blood Count 3.69 Miln/mm3 (4.00-5.20); White Blood Count 6.7 Thou/mm3 (3.6-11.0)
[2025-03-19 16:22] LABS: Alanine Aminotransferase 26 U/L (10-49); Albumin, Serum 3.8 gm/dL (3.4-4.8); Albumin/Globulin Ratio 2.4 (1.2-2.2); Alkaline Phosphatase 70 U/L (46-116); Anion Gap 9 (7-16); Aspartate Amino Transferase 30 U/L (0-34); BUN/Creatinine Ratio 27 Ratio (12-20); Bilirubin,Total 0.3 mg/dL (0.3-1.2); Blood Urea Nitrogen 16 mg/dL (9-23); Calcium 9.2 mg/dL (8.3-10.6); Calcium (Corrected) 9.4 mg/dL (8.5-10.1); Carbon Dioxide 24.6 mMol/L (20.0-31.0); Chloride 107 mMol/L (98-107); Creatinine (Component) 0.6 mg/dL (0.6-1.3); Globulin 1.6 gm/dL (2.3-3.5); Glucose 169 mg/dL (74-106); Osmolality,Calculated 286 (275-295); Potassium 3.2 mMol/L (3.4-5.1); Sodium 141 mMol/L (136-145); Total Protein 5.4 gm/dL (5.7-8.2); eGFR > 60 See Note
[2025-03-26 16:06] LABS: Basophils # (Auto) 0.0 Thou/mm3 (0.0-0.2); Basophils % (Auto) 1 % (0-2.5); Eosinophils # (Auto) 0.4 Thou/mm3 (0.0-0.5); Eosinophils % (Auto) 7 % (0-10); Hematocrit 31.7 % (36.0-46.0); Hemoglobin 10.4 g/dL (12.0-16.0); Immature Granulocytes Auto 0.14 Thou/mm3 (0.00-0.00); Lymphocytes # (Auto) 0.5 Thou/mm3 (1.0-4.8); Lymphocytes % (Auto) 9 % (10-50); Mean Corpuscular HGB Conc 32.8 g/dl (31.0-37.0); Mean Corpuscular Hemoglobin 27.2 pg (25.0-35.0); Mean Corpuscular Volume 83 fL (80-100); Monocytes # (Auto) 0.9 Thou/mm3 (0.0-0.8); Monocytes % (Auto) 17 % (0-12); Neutrophils # (Auto) 3.6 Thou/mm3 (1.8-7.7); Neutrophils % (Auto) 64 % (37-80); Nucleated Red Blood Cell # 0.00 Thou/mm3 (0.00-0.00); Nucleated Red Blood Cell % 0 /100 WBC (0); Platelet Count 165 Thou/mm3 (140-440); RDW Standard Deviation 48.9 fL (36.4-46.3); Red Blood Count 3.82 Miln/mm3 (4.00-5.20); White Blood Count 5.7 Thou/mm3 (3.6-11.0)
[2025-03-26 16:40] LABS: Alanine Aminotransferase 14 U/L (10-49); Albumin, Serum 3.7 gm/dL (3.4-4.8); Albumin/Globulin Ratio 2.1 (1.2-2.2); Alkaline Phosphatase 65 U/L (46-116); Anion Gap 7 (7-16); Aspartate Amino Transferase 21 U/L (0-34); BUN/Creatinine Ratio 25 Ratio (12-20); Bilirubin,Total 0.3 mg/dL (0.3-1.2); Blood Urea Nitrogen 15 mg/dL (9-23); Calcium 9.1 mg/dL (8.3-10.6); Calcium (Corrected) 9.3 mg/dL (8.5-10.1); Carbon Dioxide 27.9 mMol/L (20.0-31.0); Chloride 106 mMol/L (98-107); Creatinine (Component) 0.6 mg/dL (0.6-1.3); Globulin 1.8 gm/dL (2.3-3.5); Glucose 145 mg/dL (74-106); Osmolality,Calculated 285 (275-295); Potassium 3.3 mMol/L (3.4-5.1); Sodium 141 mMol/L (136-145); Total Protein 5.5 gm/dL (5.7-8.2); eGFR > 60 See Note
[2025-03-31 13:48] LABS: Immunoglobulin G 569 mg/dL (600-1540); Kappa Light Chain, Free 149.2 mg/L (3.3-19.4); Lambda Light Chain, Free 11.9 mg/L (5.7-26.3)
[2025-04-01 15:38] LABS: Abnormal protein band 1 0.3 g/dL (NONE DETECTED); Albumin 3.6 g/dL (3.8-4.8); Alpha-1-Globulin 0.3 g/dL (0.2-0.3); Alpha-2-Globulin 0.6 g/dL (0.5-0.9); Beta-1-Globulin 0.4 g/dL (0.4-0.6); Beta-2-globulin 0.2 g/dL (0.2-0.5); Gamma Globulin 0.5 g/dL (0.8-1.7)
[2025-04-02 07:04] LABS: Beta 2 Microglobulin 2.87 mg/L (< OR = 2.51); Immunoglobulin A 22 mg/dL (70-320); Immunoglobulin M 66 mg/dL (50-300); Kappa/Lambda, Free Ratio 12.54 (0.26-1.65)
[2025-04-02 07:10] LABS: Protein, total, serum 5.6 g/dL (6.1-8.1)
== END 2025-04-01 23:59 | disposition home or self-care (01) ==
LOC: SCTC 09:36
PROVIDERS: Internal Medicine Hematology & Oncology; PCP Nurse Practitioner Family; Referring Provider Nurse Practitioner Family; Visit Provider Radiology Therapeutic Radiology
DX: Z51.11 Encounter for antineoplastic chemotherapy (principal); C90.00 Multiple myeloma not having achieved remission
CPT/HCPCS: 36591; 80053; 82232; 82784; 83521; 84155; 84165; 85025; 86334; 96367; 96368; 96375; 96413; 96417; 99213; A4216; J1100; J1453; J1642; J2405; J3490; J7040; J7050; J9075; G0463

== ENCOUNTER 2025-06-19 10:10 | Outpatient (RCR) | payer MEDICARE, MEDICAID, SELFPAY ==
[2025-06-04 17:04] LABS: Basophils # (Auto) 0.0 Thou/mm3 (0.0-0.2); Basophils % (Auto) 0 % (0-2.5); Eosinophils # (Auto) 0.4 Thou/mm3 (0.0-0.5); Eosinophils % (Auto) 7 % (0-10); Hematocrit 28.9 % (36.0-46.0); Hemoglobin 9.2 g/dL (12.0-16.0); Immature Granulocytes Auto 0.05 Thou/mm3 (0.00-0.00); Lymphocytes # (Auto) 0.6 Thou/mm3 (1.0-4.8); Lymphocytes % (Auto) 11 % (10-50); Mean Corpuscular HGB Conc 31.8 g/dl (31.0-37.0); Mean Corpuscular Hemoglobin 25.8 pg (25.0-35.0); Mean Corpuscular Volume 81 fL (80-100); Monocytes # (Auto) 0.8 Thou/mm3 (0.0-0.8); Monocytes % (Auto) 14 % (0-12); Neutrophils # (Auto) 3.9 Thou/mm3 (1.8-7.7); Neutrophils % (Auto) 67 % (37-80); Nucleated Red Blood Cell # 0.00 Thou/mm3 (0.00-0.00); Nucleated Red Blood Cell % 0 /100 WBC (0); Platelet Count 158 Thou/mm3 (140-440); RDW Standard Deviation 47.3 fL (36.4-46.3); Red Blood Count 3.56 Miln/mm3 (4.00-5.20); White Blood Count 5.8 Thou/mm3 (3.6-11.0)
[2025-06-04 17:29] LABS: Alanine Aminotransferase 12 U/L (10-49); Albumin, Serum 3.9 gm/dL (3.4-4.8); Albumin/Globulin Ratio 2.0 (1.2-2.2); Alkaline Phosphatase 64 U/L (46-116); Anion Gap 9 (7-16); Aspartate Amino Transferase 26 U/L (0-34); BUN/Creatinine Ratio 26 Ratio (12-20); Bilirubin,Total 0.3 mg/dL (0.3-1.2); Blood Urea Nitrogen 13 mg/dL (9-23); Calcium 8.8 mg/dL (8.3-10.6); Calcium (Corrected) 8.9 mg/dL (8.5-10.1); Carbon Dioxide 27.8 mMol/L (20.0-31.0); Chloride 108 mMol/L (98-107); Creatinine (Component) 0.5 mg/dL (0.6-1.3); Globulin 2.0 gm/dL (2.3-3.5); Glucose 110 mg/dL (74-106); Osmolality,Calculated 289 (275-295); Potassium 3.2 mMol/L (3.4-5.1); Sodium 145 mMol/L (136-145); Total Protein 5.9 gm/dL (5.7-8.2); eGFR > 60 See Note
[2025-06-11 16:51] LABS: Basophils # (Auto) 0.0 Thou/mm3 (0.0-0.2); Basophils % (Auto) 1 % (0-2.5); Eosinophils # (Auto) 0.3 Thou/mm3 (0.0-0.5); Eosinophils % (Auto) 5 % (0-10); Hematocrit 32.5 % (36.0-46.0); Hemoglobin 10.4 g/dL (12.0-16.0); Immature Granulocytes Auto 0.24 Thou/mm3 (0.00-0.00); Lymphocytes # (Auto) 0.8 Thou/mm3 (1.0-4.8); Lymphocytes % (Auto) 13 % (10-50); Mean Corpuscular HGB Conc 32.0 g/dl (31.0-37.0); Mean Corpuscular Hemoglobin 26.2 pg (25.0-35.0); Mean Corpuscular Volume 82 fL (80-100); Monocytes # (Auto) 0.8 Thou/mm3 (0.0-0.8); Monocytes % (Auto) 13 % (0-12); Neutrophils # (Auto) 4.0 Thou/mm3 (1.8-7.7); Neutrophils % (Auto) 64 % (37-80); Nucleated Red Blood Cell # 0.00 Thou/mm3 (0.00-0.00); Nucleated Red Blood Cell % 0 /100 WBC (0); Platelet Count 150 Thou/mm3 (140-440); RDW Standard Deviation 47.9 fL (36.4-46.3); Red Blood Count 3.97 Miln/mm3 (4.00-5.20); White Blood Count 6.3 Thou/mm3 (3.6-11.0)
[2025-06-11 17:05] LABS: Alanine Aminotransferase 18 U/L (10-49); Albumin, Serum 3.9 gm/dL (3.4-4.8); Albumin/Globulin Ratio 2.0 (1.2-2.2); Alkaline Phosphatase 61 U/L (46-116); Anion Gap 11 (7-16); Aspartate Amino Transferase 27 U/L (0-34); BUN/Creatinine Ratio 30 Ratio (12-20); Bilirubin,Total 0.4 mg/dL (0.3-1.2); Blood Urea Nitrogen 15 mg/dL (9-23); Calcium 8.9 mg/dL (8.3-10.6); Calcium (Corrected) 9.0 mg/dL (8.5-10.1); Carbon Dioxide 28.0 mMol/L (20.0-31.0); Chloride 105 mMol/L (98-107); Creatinine (Component) 0.5 mg/dL (0.6-1.3); Globulin 2.0 gm/dL (2.3-3.5); Glucose 103 mg/dL (74-106); Osmolality,Calculated 287 (275-295); Potassium 3.1 mMol/L (3.4-5.1); Sodium 144 mMol/L (136-145); Total Protein 5.9 gm/dL (5.7-8.2); eGFR > 60 See Note
[2025-06-18 15:42] LABS: Basophils # (Auto) 0.1 Thou/mm3 (0.0-0.2); Basophils % (Auto) 1 % (0-2.5); Eosinophils # (Auto) 0.2 Thou/mm3 (0.0-0.5); Eosinophils % (Auto) 2 % (0-10); Hematocrit 35.7 % (36.0-46.0); Hemoglobin 11.4 g/dL (12.0-16.0); Immature Granulocytes Auto 0.19 Thou/mm3 (0.00-0.00); Lymphocytes # (Auto) 0.9 Thou/mm3 (1.0-4.8); Lymphocytes % (Auto) 8 % (10-50); Mean Corpuscular HGB Conc 31.9 g/dl (31.0-37.0); Mean Corpuscular Hemoglobin 25.9 pg (25.0-35.0); Mean Corpuscular Volume 81 fL (80-100); Monocytes # (Auto) 1.7 Thou/mm3 (0.0-0.8); Monocytes % (Auto) 14 % (0-12); Neutrophils # (Auto) 9.1 Thou/mm3 (1.8-7.7); Neutrophils % (Auto) 74 % (37-80); Nucleated Red Blood Cell # 0.00 Thou/mm3 (0.00-0.00); Nucleated Red Blood Cell % 0 /100 WBC (0); Platelet Count 127 Thou/mm3 (140-440); RDW Standard Deviation 54.5 fL (36.4-46.3); Red Blood Count 4.40 Miln/mm3 (4.00-5.20); White Blood Count 12.3 Thou/mm3 (3.6-11.0)
[2025-06-18 15:59] LABS: Alanine Aminotransferase 11 U/L (10-49); Albumin, Serum 4.2 gm/dL (3.4-4.8); Albumin/Globulin Ratio 2.0 (1.2-2.2); Alkaline Phosphatase 64 U/L (46-116); Anion Gap 12 (7-16); Aspartate Amino Transferase 19 U/L (0-34); BUN/Creatinine Ratio 22 Ratio (12-20); Bilirubin,Total 0.7 mg/dL (0.3-1.2); Blood Urea Nitrogen 13 mg/dL (9-23); Calcium 9.2 mg/dL (8.3-10.6); Calcium (Corrected) 9.2 mg/dL (8.5-10.1); Carbon Dioxide 26.3 mMol/L (20.0-31.0); Chloride 100 mMol/L (98-107); Creatinine (Component) 0.6 mg/dL (0.6-1.3); Globulin 2.1 gm/dL (2.3-3.5); Glucose 147 mg/dL (74-106); Osmolality,Calculated 278 (275-295); Potassium 3.6 mMol/L (3.4-5.1); Sodium 138 mMol/L (136-145); Total Protein 6.3 gm/dL (5.7-8.2); eGFR > 60 See Note
[2025-06-25 19:51] LABS: Abnormal protein band 1 0.2 g/dL (NONE DETECTED); Albumin 2.8 g/dL (3.8-4.8); Alpha-1-Globulin 0.3 g/dL (0.2-0.3); Alpha-2-Globulin 0.7 g/dL (0.5-0.9); Beta-1-Globulin 0.3 g/dL (0.4-0.6); Beta-2-globulin 0.2 g/dL (0.2-0.5); Gamma Globulin 0.4 g/dL (0.8-1.7)
[2025-06-28 11:19] LABS: Immunoglobulin G 430 mg/dL (600-1540); Kappa Light Chain, Free 82.6 mg/L (3.3-19.4); Lambda Light Chain, Free 8.8 mg/L (5.7-26.3)
[2025-06-30 07:05] LABS: Protein, total, serum 4.7 g/dL (6.1-8.1)
[2025-06-30 07:11] LABS: Beta 2 Microglobulin 2.90 mg/L (< OR = 2.51); Immunoglobulin A 15 mg/dL (70-320); Immunoglobulin M 27 mg/dL (50-300); Kappa/Lambda, Free Ratio 9.39 (0.26-1.65)
== END 2025-07-02 23:59 | disposition home or self-care (01) ==
LOC: SCTC 10:10
PROVIDERS: Internal Medicine Hematology & Oncology; PCP Family Medicine; Referring Provider Family Medicine; Visit Provider Radiology Therapeutic Radiology
DX: Z51.11 Encounter for antineoplastic chemotherapy (principal); C90.00 Multiple myeloma not having achieved remission; G62.0 Drug-induced polyneuropathy; T45.1X5D Adverse effect of antineoplastic and immunosuppressive drugs, subsequent encounter
CPT/HCPCS: 36591; 80053; 82232; 82784; 83521; 84155; 84165; 85025; 86334; 96365; 96367; 96368; 96413; A4216; J1100; J1434; J1642; J1756; J2405; J3490; J7040; J9075